=== PATIENT | male | born 1960 | race Caucasian/White ===

== ENCOUNTER → 2016-05-23 | Outpatient (CLI) | payer OTHER, MEDICARE | END | disposition home or self-care (01) | LOC: LABPAT 12:06 | PROVIDERS: ATTEND Orthopaedic Surgery Orthopaedic Surgery of the Spine | DX: Z01.812 Encounter for preprocedural laboratory examination (principal) | CPT/HCPCS: 87070 ==

== ENCOUNTER → 2016-06-01 | Day surgery (SDC) | payer OTHER, MEDICARE ==
[2016-05-23 14:18] VITALS: BMI 42.2
[~2016-06-01] MED LIST: BACITRACIN 50,000 UNIT, POLYMYXIN B 500,000 UNIT in SODIUM CHLORIDE 0.9% IRRIGATIO 1,00... IRRIGATION ONE; DEXAMETHASONE SOD PHOSPHATE 10 MG/ML 1 ML VIAL IV ONE; LACTATED RINGERS 1,000 ML IV SCH; LIDOCAINE 1% 20 ML VIAL (10MG/ML) FOR IV START INTRADERMA PRN; LIDOCAINE 1% INJ 10MG/ML (20 ML MDV) ONE; MIDAZOLAM 2 MG/2 ML VIAL IV PRN; MIDAZOLAM 2 MG/2 ML VIAL ONE; ONDANSETRON 4 MG/2 ML VIAL IVP ONE; PROPOFOL 10 MG/ML 20 ML VIAL IV ONE; SCOPOLAMINE 1.5MG/72HR PATCH TRANSDERM ONE; SUCCINYLCHOLINE CHLORIDE VIAL 200 MG/10 ML VIAL IV ONE; ceFAZolin 3 GM in SODIUM CHLORIDE 0.9% 100 ML IVPB ONE; fentaNYL (PF) 50 MCG/ML 2 ML AMP ONE
[2016-06-01 06:51] LABS: Glucose,Whole Blood 134 mg/dL (75-99)
--- NOTE | 2016-06-01 08:16 | P.PN ---
Progress Note - Text The patient presented today for his surgery for his lumbar spine. We were planning a decompression and fusion surgery for his degenerative scoliosis and stenosis at his lumbar spine at L2-3 L3 4 L4 5 and L5-S1. He has been evaluated preoperatively with our service as with with medicine. He is a chronic smoker and has not been able stop smoking, despite numerous attempts. We attempted to medically optimize him prior to surgery. He was prepared for his surgery this morning with anesthesia service. He was having some wheezing. He was brought to the operating room and was sedated and intubated by the anesthesia service with Dr. Paul. The ropes that his wheezing would resolve. However he continued have significant wheezing and higher pressures for his respirations. He is obese and we are planning a extended case assisting over 4 hours with him in a prone position which would put increased strain on his lungs and cardiopulmonary status. He was being treated for his wheezing with anesthesia service but this was not resolving well. With his persistent wheezing and his high pulmonary pressure status anesthesia felt that it would not be safe or at the least be at significantly increased risk from a pulmonary standpoint for him to proceed with this major surgery today. They felt that they would be best to postpone his surgery and abandon the surgery planned for today until the patient can be more medically optimized from a pulmonary standpoint and then rescheduled. The patient has been woken up and brought to recovery room. Once he is stabilized and will be okay for him to be discharged home today for continued outpatient workup and management with further optimization of his pulmonary standpoint and status. The lumbar decompression and fusion surgery plan for today is canceled. We will contact the patient from our office to further coordinate continued care.
[2016-06-01 08:24] VITALS: RESP 16; TEMP 97.9
[2016-06-01] MEDS: HYDROmorphone 1 MG/ML 1 ML SYRINGE IVP PRN ×2 (08:36→08:48)
[2016-06-01 09:17] VITALS: PULSE 71
[2016-06-01 09:40] VITALS: BP 138/70
== END ==
LOC: OR 05:59 → UNDOADMIN 05:59 → 2ORMAIN 05:59 → EDSTATUS 07:30 → UNDODISIN 10:02
PROVIDERS: ATTEND Orthopaedic Surgery Orthopaedic Surgery of the Spine
DX: M48.06 Spinal stenosis, lumbar region (principal); M41.86 Other forms of scoliosis, lumbar region; E66.9 Obesity, unspecified; Z68.41 Body mass index [BMI] 40.0-44.9, adult; F17.200 Nicotine dependence, unspecified, uncomplicated; Z53.09 Procedure and treatment not carried out because of other contraindication; R06.2 Wheezing; I10 Essential (primary) hypertension; M10.9 Gout, unspecified; E11.9 Type 2 diabetes mellitus without complications; Z79.84 Long term (current) use of oral hypoglycemic drugs; Z79.891 Long term (current) use of opiate analgesic; Z79.899 Other long term (current) drug therapy
CPT/HCPCS: 63005; 86900; 86901; 86850; J2250; J0330; J2405; J2001; J3010; J1170; J2704

== ENCOUNTER → 2016-06-06 | Outpatient (CLI) | payer OTHER, MEDICARE ==
[2016-06-06 13:30] LABS: Blood Urea Nitrogen 27 mg/dL (9-20); Non-African American GFR(MDRD) >60 (>60 ml/min/1.73 sqM)
--- NOTE | 2016-06-06 15:14 | CT ---
EXAMINATION TYPE: CT chest w con DATE OF EXAM: 06/06/2016 2:03 PM COMPARISON: NONE HISTORY: Shortness of breath, Respiratory Distress, wheezing on surgical table CT DLP: 1231.7 mGycm, Automated exposure control for dose reduction was used. CONTRAST: Performed injected with 100 mL of Omnipaque 300. TECHNIQUE: Axial images were obtained at 5 mm thick sections. Reconstructed images are reviewed on [employer] computer in the coronal plane. FINDINGS: Portion of the thyroid visualized is normal. The tracheobronchial tree appears normal. No suspicious lung nodules or focal infiltrates are present. No enlarged mediastinal or hilar adenopathy is evident. The ascending aorta diameter at the level o f the main pulmonary artery is 3.5 cm. The main pulmonary artery diameter at the bifurcation is 3.0 cm. Some coronary artery calcification is present. Limited CT sections are obtained through the upper abdomen. Abdomen is essentially unremarkable. IMPRESSIONS: 1. No acute pulmonary process.
== END ==
LOC: RADCTMAIN 12:42
PROVIDERS: ATTEND Family Medicine
DX: R06.02 Shortness of breath (principal); R06.00 Dyspnea, unspecified
CPT/HCPCS: 82565; 84520; 71260; 36415; Q9967

== ENCOUNTER → 2016-06-28 | Outpatient (CLI) | payer OTHER, MEDICARE ==
[2016-06-28 11:21] LABS: Basophils # (A) 0.1 k/uL (0-0.2); Basophils % (A) 1 %; CH 31.3; CHCM 33.6; Eosinophils # (A) 0.3 k/uL (0-0.7); Eosinophils % (A) 3 %; HCT 43.1 % (39.0-53.0); HDW 2.27; HGB 14.2 gm/dL (13.0-17.5); Luc # (Auto) 0.29; Luc % (Auto) 4; Lymphocytes # (A) 1.1 k/uL (1.0-4.8); Lymphocytes % (A) 13 %; MCH 30.7 pg (25.0-35.0); MCHC 32.8 g/dL (31.0-37.0); MCV 93.7 fL (80.0-100.0); Mean Platelet Volume 7.1; Monocytes # (A) 0.6 k/uL (0-1.0); Monocytes % (A) 7 %; Neutrophils # (A) 5.9 k/uL (1.3-7.7); Neutrophils % (A) 73 %; RBC 4.61 m/uL (4.30-5.90); RDW 13.5 % (11.5-15.5); WBC 8.1 k/uL (3.8-10.6); WBC (Perox) 7.99
[2016-06-28 11:36] LABS: Anion Gap 9 mmol/L; Blood Urea Nitrogen 23 mg/dL (9-20); Carbon Dioxide 30 mmol/L (22-30); Chloride 101 mmol/L (98-107); Glucose 120 mg/dL (74-99); Non-African American GFR(MDRD) >60 (>60 ml/min/1.73 sqM); Potassium 4.8 mmol/L (3.5-5.1); Sodium 140 mmol/L (137-145)
[2016-06-28 11:41] LABS: Prothrombin Time 9.9 sec (9.0-12.0)
[2016-06-28 11:42] LABS: Appearance,Urine Clear (Clear); Bilirubin,Urine Negative (Negative); Glucose,Urine (UA) Negative (Negative); Ketones,Urine Negative (Negative); Leukocyte Esterase,Urine Negative (Negative); Nitrite,Urine Negative (Negative); PH, Urine 6.5 (5.0-8.0); Protein,Urine Negative (Negative); Specific Gravity,Urine 1.021 (1.001-1.035); UA Billing (MACRO vs. MICRO) CHEM; Urobilinogen,Urine <2.0 mg/dL (<2.0)
[2016-06-28 11:56] LABS: Calcium 9.8 mg/dL (8.4-10.2)
== END | disposition home or self-care (01) ==
LOC: LABWHC1 10:53
PROVIDERS: ATTEND Orthopaedic Surgery Orthopaedic Surgery of the Spine
DX: Z01.812 Encounter for preprocedural laboratory examination (principal)
CPT/HCPCS: 36415; 80048; 81003; 85025; 85610; 85730; 87070

== ENCOUNTER 2016-07-06 07:16 | Inpatient (IN) | payer OTHER, MEDICARE ==
[2016-07-04 10:09] VITALS: BMI 43.5
[~2016-07-06 07:16] MED LIST changes: +FAMOTIDINE 20 MG/2 ML VIAL IV PRN; -LACTATED RINGERS 1,000 ML IV SCH; -LIDOCAINE 1% INJ 10MG/ML (20 ML MDV) ONE; -MIDAZOLAM 2 MG/2 ML VIAL ONE; -PROPOFOL 10 MG/ML 20 ML VIAL IV ONE; -SUCCINYLCHOLINE CHLORIDE VIAL 200 MG/10 ML VIAL IV ONE; -fentaNYL (PF) 50 MCG/ML 2 ML AMP ONE
[2016-07-06] MEDS: LACTATED RINGERS 1,000 ML IV SCH (07:37)
[2016-07-06 07:38] LABS: Glucose,Whole Blood 127 mg/dL (75-99)
[2016-07-06] MEDS ORDERED: PROPOFOL 10 MG/ML 20 ML VIAL IV ONE (08:30)
[2016-07-06] MEDS ORDERED: SODIUM CHLORIDE 0.9% IRRIG 1,000 ML BTL IRRIGATION ONE (08:30)
[2016-07-06] MEDS ORDERED: SUCCINYLCHOLINE CHLORIDE VIAL 200 MG/10 ML VIAL IV ONE (08:30)
[2016-07-06] MEDS ORDERED: FUROSEMIDE 10 MG/ML 2 ML VIAL ONE (08:30)
[2016-07-06] MEDS ORDERED: HEPARIN SODIUM,PORCINE 10,000 UNIT/ML 1 ML VIAL ONE (08:30)
[2016-07-06] MEDS ORDERED: ALBUMIN HUMAN 5% 250 ML BOTTLE IVPB ONE (08:30)
[2016-07-06] MEDS ORDERED: HYDROmorphone (PF) 1 MG/ML ONE (08:30)
[2016-07-06] MEDS ORDERED: PHENYLEPHRINE-0.9% NACL SYG 1 MG/10 ML SYRINGE ONE (08:30)
[2016-07-06] MEDS ORDERED: ROCURONIUM BROMIDE 10 MG/ML 10 ML VIAL IV ONE (08:30)
[2016-07-06] MEDS ORDERED: ePHEDrine 50 MG/ML 1 ML AMP ONE (08:30)
[2016-07-06] MEDS ORDERED: LIDOCAINE 1% INJ 10MG/ML (20 ML MDV) ONE (08:30)
[2016-07-06] MEDS ORDERED: fentaNYL (PF) 50 MCG/ML 2 ML AMP ONE (08:30)
[2016-07-06] MEDS ORDERED: ONDANSETRON 4 MG/2 ML VIAL ONE (08:30)
[2016-07-06] MEDS ORDERED: ALBUTEROL INHALER 60 PUFF/8 GM INHALER INHALATION ONE (08:30)
[2016-07-06] MEDS ORDERED: MIDAZOLAM 2 MG/2 ML VIAL ONE (08:30)
[2016-07-06] MEDS ORDERED: LACTATED RINGERS 1,000 ML IV ONE ×8 (08:45→16:30)
[2016-07-06] MEDS ORDERED: LIDOCAINE 0.5%-EPI 1:200,000 50 ML VIAL SQ ONE (09:17)
[2016-07-06] MEDS ORDERED: BUPIVACAINE (PF) 0.25% 30 ML VIAL SQ ONE (10:00)
[2016-07-06] MEDS ORDERED: THROMBIN (BOVINE) 5,000 UNIT VIAL TOPICAL ONE (10:00)
[2016-07-06] MEDS ORDERED: GELATIN SPONGE,ABSORB (LARGE) 1 EACH SPONGE TOPICAL ONE (10:01)
--- NOTE | 2016-07-06 10:33 | XR ---
EXAMINATION TYPE: XR lumbar spine 1V DATE OF EXAM: 07/06/2016 10:02 AM COMPARISON: NONE HISTORY: Spinal stenosis and pain. TECHNIQUE: Portable intraoperative lateral view of lumbar spine is performed. FINDINGS: Exam is for surgical planning and not for diagnostic purposes. Metallic pointer is noted at posterior L4 vertebral body level. IMPRESSION: As above
[2016-07-06 10:57] LABS: Glucose,Whole Blood 131 mg/dL (75-99)
[2016-07-06 13:02] LABS: Glucose,Whole Blood 137 mg/dL (75-99)
--- NOTE | 2016-07-06 14:15 | XR ---
EXAMINATION TYPE: XR lumbar spine 2 or 3V DATE OF EXAM: 07/06/2016 2:02 PM CLINICAL HISTORY: Low back surgery TECHNIQUE: Frontal and lateral images of the lumbar spine are obtained intraoperatively. COMPARISON: Lumbar spine x-ray earlier today FINDINGS: Exam is suboptimal due to portable technique and patient's large body habitus. Bilateral in trapedicular screws are placed at L2-S1 levels. There is left-sided sharad noted. Metallic disc material L4-L5 level is seen. Alignment is felt stable. IMPRESSION: As above.
[2016-07-06] MEDS ORDERED: DIAZEPAM 5 MG TAB PO PRN (14:56)
[2016-07-06] MEDS ORDERED: BENZOCAINE/MENTHOL LOZENG 1 EACH LOZENGE MUCOUS MEM PRN (14:56)
[2016-07-06] MEDS ORDERED: ONDANSETRON 4 MG/2 ML VIAL IVP PRN (14:56)
--- NOTE | 2016-07-06 15:15 | P.OP ---
Date of Procedure: 07/06/16 Preoperative Diagnosis: Scoliosis, degenerative scoliosis, asymmetric degenerative disc disease, severe spinal stenosis L2-3 L3 4 L4 5 L5-S1, facet arthrosis L2 to S1, low back pain with lower extremity radiculopathy Postoperative Diagnosis: Same Procedure(s) Performed: Implants: Anesthesia: GETA Pathology: none sent Condition: stable Disposition: PACU Indications for Procedure: Operative Findings: Description of Procedure: BRIEF OPERATIVE NOTE Preoperative Diagnosis: Degenerative scoliosis, degenerative disc degeneration, severe spinal stenosis L2 to S1, facet arthrosis L2 to S1, low back pain with lower extremity radiculopathy, spondylolisthesis L4 5 and lateral listhesis L3 4 Postoperative Diagnosis: Same, plus increased level of difficulty due to patient 's body habitus of obesity Procedure: Laminectomy and decompression with wide bilateral foraminotomies and partial facetectomy L2-3 L3 4 L4 5 and L5-S1 Posterior lateral decompression and fusion L2-3 L3 4 L4 5 and L5-S1 Local autogenous bone grafting Use of Cell Saver Use of bone graft extenders Use of neuro monitoring Repair of incidental 1 mm durotomy Bone marrow aspiration through the pedicle with a bone marrow aspiration device Surgeon: Dr. Gonzales Sample Sawyer: Piyush Berkowitz is present throughout the entire the case persistence during positioning, dissection, exposure, visualization, and all crucial elements of the case as well as closure. Anesthesia: General anesthesia Estimated blood loss: Approximately 1300 mL with 600 given back through Cell Saver Complications: None apparent, incidental 1 mm durotomy which was repaired primarily Components implanted: K[employer] [place] pedicle screw system with use of 10 screws measuring 6.5 mm in diameter to rods one cross-link one large osteal and cancellus sponge and 20 mL of osteal amp cancellus chips to supplemental local autogenous bone graft and the bone marrow aspirate, also Tisseel was used over the durotomy repair Disposition: To recovery room in good stable condition, flat in bed. OPERATIVE INDICATIONS The patient has had long-standing issues in their lower back and lower extremities. He is found have severe changes lumbar spine with degenerative scoliosis which was dynamic with spondylolisthesis and severe stenosis. The patient has been through conservative treatment. He went through extensive conservative treatment with physical therapy medical management interventional pain management and multiple lifestyle changes including stopping smoking. The patient did not have any relief of his back pain and was having worsening of his symptoms and worsening debility despite all of his conservative care. We discussed various treatment options including surgery, and the patient wishes to proceed with surgery We discussed the risk, patient's alternatives and benefits of surgery including but not limited to, risk of bleeding risk of infection, risk of need for further surgery, risk of decreased, loss of motion, muscle function, malunion nonunion, hardware failure, nerve damage, paralysis, heart attack, blindness and . The patient has history of obesity and a number of lung issues and had initially been scheduled in the past but had to be canceled for surgery for further medical optimization which had been achieved at this point. This was discussed with his primary care physician as well as with the patient and he was felt to be stable for the surgical procedure. OPERATIVE SUMMARY After discussing all the risks, patient alternatives and benefits at length, the patient elected to proceed with surgical intervention, signed informed consent, and presented for their procedure. The patient was seen and examined in the preoperative holding area and the surgical site was marked. The patient was given antibiotics and brought to the operating room. The patient was sedated and intubated by anesthesia in standard fashion. The patient was positioned on to the operating room table in a prone position on the appropriate frame which was well-padded and well molded. We were careful to pad any bony prominences and pressure points. We were careful to maintain the patient's cervical spine and good neutral alignment and position throughout. The patient was prepped and draped in a normal standard fashion. An appropriate timeout and keystone protocol performed. We were able to proceed with the surgery. The local wound area was infiltrated with local anesthetic. An incision was made at the midline longitudinally over the appropriate levels from L2 to S1. Dissection was taken down subcutaneously to the level of the fascia which was split midline. Dissection was taken over the lamina bilaterally over the facet joints and to the transverse processes. Intraoperative x-ray was taken which showed a marker at the appropriate level at L3 4. With the appropriate level positively confirmed, we were able to proceed with placement of the pedicle holes and screws. The patient had all their twitches back. The wound was copiously irrigated and suctioned dry as had been done periodically throughout the case. Screw holes were established similarly at each level. A sharp awl was used to establish the starting hole. It was palpated and found to have good for johnson and good base. A monitored Steffee probe was used to establish the pedicle hole. It was positioned so there was no stimulation at 12 mA. The hole was palpated and found to have good for johnson and a good base. The hole was tapped with the appropriate sized tap. The transverse process or sacral ala was decorticated with a high-speed bur. I was able to use these holes to place the appropriate size screw. The screws had good alignment and position from L4 to S1 bilaterally and at L2-3 on the left. Later in the case on further review I was able to change the screws at L2 and 3 on the right to get good alignment and position with excellent bony purchase. At L4 on the right, I used the pedicle holes to get bone marrow aspirate which was used [address] over the osteal amp cancellus sponge and bone chips for use later in the case. This was confirmed with imaging. When the screws were inserted there were stimulated, and found to have no stimulation at 20 mA. I was able to turn my attention to the decompression. The patient was found to have severe stenosis and severe facet arthrosis particularly at L4 5 and L3 4. There is also ossification of the ligament and flavum at L3 4 on the right causing severe impingement at the nerve root and some adherence over the nerve root as well. decompression was performed with a combination of rongeurs, curettes, Kerrison rongeurs and a ball-tip feeler. All of the bone that was removed was stripped and morcellized for use as autogenous bone graft later in the case. I was able to obtain good central decompression as well as wide bilateral foraminal decompression. At L3 4 on the right there was a small 1 mm incidental durotomy. I was able to identify it open at the space around it and do primary closure with 6-0 Prolene and a fatty graft over the top. It had good closure and no further leakage of cervical spinal fluid. Later in the case I placed Tisseel over the repair and it had good coverage without evidence of further leak. Good hemostasis was maintained. The wound was irrigated and suctioned dry. With the hardware intact, intraoperative x-ray was again taken which showed good alignment and position of the hardware at the appropriate levels. At L2 3 4 5 and S1 I was able to get good alignment and good position with all 10 screws. We were then able to measure, contour and place the rods and appropriate hardware bilaterally. I was able to some distraction over the concavity to get good alignment of the scoliosis and good reduction of the scoliosis as well. I was able to place capcrews, tighten them down, and torque them off appropriately. With this intact I was able to place the local autogenous bone graft with additional bone graft enhancer as necessary into the posterior lateral gutters bilaterally. With the bone graft intact, a stable construct, and good decompression at the appropriate levels, we were able to proceed with closure. Good hemostasis was maintained. There is no evidence of dural tear or leak. The fascia was closed for a watertight closure. The subcutaneous tissue was closed over a superficial drain. The subcuticular tissue was closed with absorbable suture. The wound was cleaned and dried and dressed with the appropriate dressing. The drapes were broken down. The patient was gently rolled back onto their hospital bed being careful to maintain their cervical spine and good neutral alignment and position. They were woken up by anesthesia , extubated, and brought to the recovery room in good stable condition. The patient will be admitted to the hospital for appropriate postoperative care , medical management and monitoring. We will continue to follow them closely about the postoperative course.
[2016-07-06] MEDS: HYDROmorphone 1 MG/ML 1 ML SYRINGE IVP PRN ×6 (16:00→21:45)
[2016-07-06 16:47] LABS: Glucose,Whole Blood 167 mg/dL (75-99)
[2016-07-06] MEDS: SODIUM CHLORIDE 0.9% 1,000 ML IV SCH ×2 (18:11)
[2016-07-06] MEDS: HYDROmorphone PCA 5 MG/25 ML SYRINGE IV PRN (18:11)
[2016-07-06] MEDS: ceFAZolin 3 GM in SODIUM CHLORIDE 0.9% 100 ML IVPB SCH (19:32)
[2016-07-06 20:23] LABS: Glucose,Whole Blood 160 mg/dL (75-99)
[2016-07-06] MEDS: HYDROCHLOROTHIAZIDE 25 MG TAB PO SCH (21:49)
[2016-07-06] MEDS: metFORMIN 500 MG TAB PO SCH (21:49)
[2016-07-06] MEDS: amLODIPine 10 MG TAB PO SCH (21:49)
[2016-07-06] MEDS: ATORVASTATIN 40 MG TAB PO SCH (21:49)
[2016-07-07] MEDS: HYDROmorphone PCA 5 MG/25 ML SYRINGE IV PRN ×4 (01:25→22:53)
[2016-07-07] MEDS: HYDROmorphone 1 MG/ML 1 ML SYRINGE IVP PRN ×4 (01:57→20:44)
[2016-07-07] MEDS: ceFAZolin 3 GM in SODIUM CHLORIDE 0.9% 100 ML IVPB SCH ×3 (02:11→17:14)
[2016-07-07] MEDS: HYDROcodone/APAP 10-325MG 1 EACH TAB PO PRN ×2 (04:54→20:45)
[2016-07-07] MEDS: SODIUM CHLORIDE 0.9% 1,000 ML IV SCH (05:39)
[2016-07-07 07:19] LABS: Glucose,Whole Blood 166 mg/dL (75-99)
--- NOTE | 2016-07-07 07:54 | CONS ---
DATE OF CONSULTATION: This is a 55-year-old white man with chronic back pain for a long period of time. It finally came to the point that he had severe stenosis with spinal stenosis with radicular pain and weakness down both legs becoming intolerable on any type of medication of which he was then evaluated with Dr. Gonzales and I am seeing him postop for laminectomy and decompression with wide bilateral foraminotomy and foramen ( ) L2-3, L3-4, L4-5 and L5-S1. He also had posterior lateral decompression of L2-L3 L3-L4, L4-L5 and L5-S1. I am following with him today postoperatively and he had tremendous amount of pain last p.m. The patient has a long-standing history of severe chronic lumbar stenosis and back pain, which has actually made him disabled. He worked in construction for many years. He has also had gout, hypertension, which is well controlled, diabetes type 2. Blood sugars were watched all night and they were good, went from 129 to 160 and he is on coverage. He has had a history of some mild COPD. ( ) HISTORY: Type 2 diabetes, which has been well controlled, obesity and severe hearing loss. SOCIAL HISTORY: He just recently stopped smoking. He is a nondrinker. Does live with his and he is disabled because of his chronic back problems. From a surgical standpoint, he did have a problem with a shoulder dislocation that was taken care of previously and previous brachial plexus injury. REVIEW OF SYSTEMS: CARDIOPULMONARY: No shortness of breath or chest pain, no orthopnea, no paroxysmal nocturnal dyspnea. GI: No hematemesis, melena, hematochezia. He has not had any flatus postop. URINARY: He has had no problem with urination in the past. NEUROMUSCULAR: Just the weakness in his legs and his lower extremities including feet and severe back pain. SKIN: No problems with skin. PSYCHIATRIC: He has never had depression. He has been very anxious about the surgery. Physical examination at this time shows a blood pressure of 143/64, heart rate is in the 80s, temperature 98.6, respiratory rate is 20. EYES: Pupils are equal, round, reactive to light and accommodation. ENT showed tympanic membranes to be negative. Neck is supple with midline trachea. CHEST: Essentially clear to auscultation. HEART: Sinus rhythm. ABDOMEN: Soft, nontender, with no organomegaly. There are no bowel sounds. Lower extremities are within normal limits. Good palpable pulses. Again no range of motion was done just because of recent back surgery. Unable to inspect the incision at this time, I will leave that for Orthopedic Surgery. ASSESSMENT: 1. Severe chronic lumbar stenosis with intractable pain and loss of radicular strength. 2. History of some chronic obstructive pulmonary disease, recently had a pulmonology evaluation before surgery and he is stable. 3. Negative cardiac history of severity. 4. Type 2 diabetes, which has been well under control. 5. Morbid obesity with hypertension. PLAN: At this period of time most important thing is for control of pain between Dr. Gonzales and myself we have made multiple arrangements. Dr. Barber pulmonology doctor and Minoo Pantoja nurse practitioner will be covering this Monday, and and I will return on , but I will be available by phone. My cell number was given to everybody.
[2016-07-07] MEDS: LACTATED RINGERS 1,000 ML IV SCH ×3 (07:58→20:47)
[2016-07-07] MEDS: metFORMIN 500 MG TAB PO SCH ×2 (08:23→20:46)
[2016-07-07] MEDS: HYDROCHLOROTHIAZIDE 25 MG TAB PO SCH ×2 (08:24→20:46)
[2016-07-07] MEDS: LISINOPRIL 20 MG TAB PO SCH (08:24)
[2016-07-07] MEDS: ALLOPURINOL 300 MG TAB PO SCH (08:24)
[2016-07-07 08:33] LABS: Basophils % (A) 0 %; CH 31.2; CHCM 33.8; Eosinophils % (A) 0 %; HCT 31.6 % (39.0-53.0); HDW 2.49; HGB 11.1 gm/dL (13.0-17.5); Luc # (Auto) 0.18; Luc % (Auto) 2; Lymphocytes # (A) 0.7 k/uL (1.0-4.8); Lymphocytes % (A) 6 %; MCH 32.6 pg (25.0-35.0); MCHC 35.2 g/dL (31.0-37.0); MCV 92.6 fL (80.0-100.0); Mean Platelet Volume 7.5; Monocytes # (A) 1.2 k/uL (0-1.0); Monocytes % (A) 10 %; Neutrophils # (A) 9.8 k/uL (1.3-7.7); Neutrophils % (A) 82 %; RBC 3.42 m/uL (4.30-5.90); RDW 13.3 % (11.5-15.5); WBC 11.9 k/uL (3.8-10.6); WBC (Perox) 11.11
--- NOTE | 2016-07-07 08:34 | P.PN ---
Progress Note - Text Postoperative day #1 Patient is seen and examined today at bedside. The patient has some significant pain around the surgical site as expected. It was difficult to control his pain overnight but we have increased some of the IV medications and is seems to be working adequately this morning. He is not any of any spinal headaches. He is not quite of new pain in his legs. The pain is primarily at his back and feels as though its spasm. He is not having nausea or vomiting. Physical Exam Afebrile with stable vital signs Abdomen is soft nontender. He is obese. Chest has good excursion deep and space expiration The incision site is clean dry and intact. No erythema there is no purulence. The dressing and the drain are intact. There is over 300 bloody drainage in the drain overnight but this seems to be stabilizing. Extremities have not had neurologic change from prior to surgery. He has sustained dorsal flexion plantar flexion and EHL. Calves and thighs were soft nontender without evidence of DVT. Assessment/Plan Postoperative day #1 status post lumbar decompression and fusion L2-3 L3 4 L4 5 and L5-S1 for his degenerative scoliosis and severe stenosis Patient is having trouble postoperatively with his pain control overnight the first night but this seems to be more controlled this morning. Hopefully his spasms we will continue to decrease and his pain will be controlled. We need to keep him flat in bed overnight again tonight and then we can start to sit him up tomorrow at lunchtime to continue to allow the incidental durotomy to heal. If he is having headaches and we'll have him lay flat again when he tries to get up. We will continue to have him on bedrest today and hopefully tomorrow if he is not having spinal headaches we can increase the patient's mobilization with therapy. We will continue pain control with oral or IV medications. We'll continue to follow patient closely.
[2016-07-07] MEDS: CYCLOBENZAPRINE 10 MG TAB PO PRN ×2 (11:06→20:44)
[2016-07-07 11:48] LABS: Glucose,Whole Blood 159 mg/dL (75-99)
[2016-07-07 17:24] LABS: Glucose,Whole Blood 153 mg/dL (75-99)
[2016-07-07 19:11] LABS: Calcium 7.8 mg/dL (8.4-10.2); Potassium 4.4 mmol/L (3.5-5.1)
[2016-07-07 19:57] LABS: Glucose,Whole Blood 163 mg/dL (75-99)
[2016-07-07] MEDS: amLODIPine 10 MG TAB PO SCH (20:45)
[2016-07-07] MEDS: ATORVASTATIN 40 MG TAB PO SCH (20:45)
--- NOTE | 2016-07-07 20:58 | CT ---
EXAMINATION TYPE: CT abdomen pelvis wo con DATE OF EXAM: 07/07/2016 8:23 PM COMPARISON: NONE HISTORY: Prior Abd on PACS. Severe Abdominal pain and distension post OP low back surgery. DLP: CT DLP: 2126 mGycm Automated exposure control for dose reduction was used. TECHNIQUE: Helical acquisition of images was performed from the lung bases through the pelvis. FINDINGS: LUNG BASES: No significant abnormality is appreciated. LIVER/GB: No significant abnormality is appreciated. PANCREAS: No significant abnormality is seen. SPLEEN: No significant abnormality is seen. ADRENALS: No significant abnormality is seen. KIDNEYS: No significant abnormality is seen. FREE AIR: No free air is visualized RETROPERITONEAL ADENOPATHY: None visualized REPRODUCTIVE ORGANS: No significant abnormality is seen URINARY BLADDER: No significant abnormality is seen. PELVIC ADENOPATHY: None visualized. OSSEOUS STRUCTURES: The hollow viscera of the abdomen and pelvis is unremarkable. There is no pneuma tosis. No pneumoperitoneum. No bowel dilation. The mesentery and mesocolon are unremarkable. BOWEL: No significant abnormality is seen. OTHER: Postprocedural lumbar spine changes are appreciated. IMPRESSION: NO ACUTE ABDOMINOPELVIC PROCESS.
[2016-07-07] MEDS ORDERED: IPRATROPIUM-ALBUTEROL 3 ML NEB INHALATION STA (21:59)
[2016-07-08] MEDS: ceFAZolin 3 GM in SODIUM CHLORIDE 0.9% 100 ML IVPB SCH ×2 (00:13→08:01)
[2016-07-08] MEDS: LACTATED RINGERS 1,000 ML IV SCH ×3 (00:14→20:28)
[2016-07-08] MEDS: HYDROcodone/APAP 10-325MG 1 EACH TAB PO PRN ×5 (02:17→20:40)
[2016-07-08] MEDS: IPRATROPIUM-ALBUTEROL 3 ML NEB INHALATION PRN (02:40)
[2016-07-08] MEDS: HYDROmorphone PCA 5 MG/25 ML SYRINGE IV PRN ×4 (03:27→20:39)
[2016-07-08] MEDS: IPRATROPIUM-ALBUTEROL 3 ML NEB INHALATION SCH ×4 (07:34→19:56)
[2016-07-08 07:37] LABS: Glucose,Whole Blood 164 mg/dL (75-99)
[2016-07-08 08:52] LABS: Basophils % (A) 0 %; CH 31.1; CHCM 33.1; Eosinophils % (A) 0 %; HCT 31.7 % (39.0-53.0); HDW 2.33; HGB 10.4 gm/dL (13.0-17.5); Luc % (Auto) 2; Lymphocytes # (A) 0.7 k/uL (1.0-4.8); Lymphocytes % (A) 5 %; MCH 30.9 pg (25.0-35.0); MCHC 32.8 g/dL (31.0-37.0); MCV 94.2 fL (80.0-100.0); Mean Platelet Volume 6.9; Monocytes # (A) 1.3 k/uL (0-1.0); Monocytes % (A) 9 %; Neutrophils # (A) 12.2 k/uL (1.3-7.7); Neutrophils % (A) 84 %; RBC 3.37 m/uL (4.30-5.90); RDW 13.3 % (11.5-15.5); WBC 14.6 k/uL (3.8-10.6)
--- NOTE | 2016-07-08 09:04 | P.PN ---
<Piyush Plasencia - Last Filed: 07/08/16 08:57> Progress Note - Text Orthopedic Spine Patient is a pleasant 55-year-old male who is seen and examined at the bedside following posterior lateral decompression and fusion performed Monday. Following surgical intervention, patient has remained lying flat in bed folllowing a small 1mm dural tear. He has been nothing by mouth since that time. We are currently planning for him to sit up today with the assistance of physical therapy to see if he has any evidence of spinal headaches. He is not currently complaining of any headaches. We'll plan to increase his diet as tolerated. Postsurgically, he continues to have significant pain at the incision site. His pain is being controlled with Dilaudid IV, Dilaudid [employer], and [place] 10 mg/325 mg. He is also taking Flexeril 10 mg for muscle spasms. Last night he was experiencing some abdominal pain with some distention. CT of the abdomen and pelvis was performed which showed no evidence of acute abdominal pelvic process. At approximately 3:00 AM nursing stated the patient had absent bowel sounds. Nursing states this morning the patient was discussed in detail with Dr. Pavan Gonzales and a decision was made at that time for the patient to transfer to selective care. Upon seeing the patient at the bedside this morning, patient is experiencing less abdominal distention. Multiple nurses heard the presence of bowel sounds. Patient does not appear to be in acute distress. He is able to communicate without significant difficulty. He is not experiencing significant pain with palpation of the abdomen. He does have some pain with palpation over the lower ribs bilaterally, which is most likely due from positioning during surgical intervention. At this time, we will plan to hold transfer to selective care. It is been discussed with nursing if he begins to have more abdominal issues or absent bowel sounds he will be transferred to selective care. Patient also continues to have some difficulty with some labored breathing postsurgically. He is known have some difficulty with breathing prior to surgical intervention. Chest x-ray was ordered but was unable to be obtained this morning is the patient has difficulty sitting up at anything greater than lying flat. I discussed with nursing we will plan to consult with pulmonology for further evaluation and care. Patient states he is not currently experiencing any significant pain in bilateral lower extremities. He states he does have difficulty with trying to perform any movement of the lumbar spine. We discussed that we'll be important for him to try to start increasing his mobility and ambulation. We'll plan to do that after sitting him up at lunchtime after assessing possibility of spinal headaches. Physical Exam Lumbar Fusion: Status post surgical day number 2 Patient is awake, alert, and oriented 3 Vital signs stable Breathing does not appear to be significantly labored but also does not appear to be performing deep inspiration and expiration; on O2 nasal cannula; currently receiving a breathing treatment Abdomen soft but distended; no significant pain with palpation of the abdomen; some pain with palpation of the inferior ribs bilaterally Dorsiflexion, plantarflexion, and extensor hallucis longus positive sustained bilaterally No signs or symptoms of DVT; no calf pain; pneumatic cuffs intact bilateral lower extremities Dressing is not addressed as patient continues to lie flat in bed and will continue to do so until lunchtime today Hemovac drain well secure Neurovascularly intact bilaterally lower extremities Higgins catheter intact Assessment: Posterior lateral decompression and fusion L2-5 Incidental 1 mm durotomy Low back pain Abdominal distention Some labored breathing postsurgically Bilateral lower rib pain Plan: 1. Patient will continue to lie flat in bed until lunchtime today. At that time, we'll plan to sit the patient upright at least 45 and further assess possibility of spinal headaches. If the patient is not experiencing any spinal headaches at that time, we'll plan to increase his mobility and ambulation with the assistance of physical therapy. 2. Continue pain control with IV and oral medications 3. Dressing to remain intact until patient is able to be mobilized; at that time Hemovac drain will be discontinued and dressing will be changed to changed to Telfa and Tegaderm 4. We will plan to advance diet as tolerated started his lunch today, 2016. 5. We will plan to discontinue his Higgins catheter once he's been able to increase mobility and ambulation. 6. We'll plan consultation with pulmonology to further address his pulmonary status and some difficulty with labored breathing; patient currently waiting for chest x-ray; patient should use icentive spirometer 7. Patient will currently continue to remain on the 5 [address]. floor. If the patient begins to experience significant changes in his overall status or vital signs or begins to have changes with his abdomen or begins to experience absent bowel sounds, we'll plan to have the patient transferred to selective care. 8. Medical management can continue to manage patient for patient's other medical issues 9. We will continue to follow the patient closely 10. Patient can follow-up with Piyush Plasencia PA-C or Dr. Pavan Gonzales at [facility] in 2-3 weeks following discharge <Vanessa Gonzales - Last Filed: 07/12/16 12:17> Progress Note - Text The patient is seen and examined today at bedside. There is still some active drainage at his surgical site which is serosanguineous. He has been third spacing and collecting fluid and I think this is can has pooled underneath his wound site and seems to be draining from it. I do not think that there is active bleeding necessarily. I do not think that he has a continued CSF leak has he is not having any complaints of spinal or positional headaches. He has a large blister which appears to have a clean base at his left gluteal superficial area with some other small blisters peering. The there is some palpable fluid collection underneath the scan and this seems to be the cause of his blistering. I would like to see the drainage decreased further before we discharge him to retirement. I think that with the continued drainage he would like leak necessary to take him and transferred back to the hospital and I think of the more prudent to keep him here for close observation and continued IV antibiotics as long as there is active drainage. I discussed this with him and his family as well as the nursing staff and they're agreeable. We will continue to follow them closely.
[2016-07-08 09:18] LABS: Potassium 4.1 mmol/L (3.5-5.1); Total Bilirubin 0.8 mg/dL (0.2-1.3); Total Protein 5.9 g/dL (6.3-8.2)
[2016-07-08] MEDS: LISINOPRIL 20 MG TAB PO SCH (09:39)
[2016-07-08] MEDS: HYDROCHLOROTHIAZIDE 25 MG TAB PO SCH ×2 (09:39→20:29)
[2016-07-08] MEDS: metFORMIN 500 MG TAB PO SCH ×2 (09:39→20:29)
[2016-07-08] MEDS: ALLOPURINOL 300 MG TAB PO SCH (09:40)
--- NOTE | 2016-07-08 11:49 | XR ---
EXAMINATION TYPE: XR chest 1V portable DATE OF EXAM: 07/08/2016 11:45 AM COMPARISON: 06/10/2016 INDICATION: Lung fluid TECHNIQUE: Single frontal view of the chest is obtained. FINDINGS: The heart size is normal. The pulmonary vasculature is normal. The lungs are clear. IMPRESSION: 1. No acute pulmonary process.
[2016-07-08 12:21] LABS: Glucose,Whole Blood 147 mg/dL (75-99)
--- NOTE | 2016-07-08 14:43 | P.PN ---
Subjective Principal diagnosis: Laminectomy Patient seen and examined covering for Dr. Dias. The patient did have an episode of shortness of breath overnight. The patient states at the time he was having significant back pain. He thinks his breathing difficulties was related to that. He states his breathing is good now. He does have a history of tobacco abuse and quit one month ago. He also has a history of diabetes. He states he has never been evaluated for obstructive sleep apnea. The patient does not wear oxygen at home. He states he was started on an inhaler several months ago but does not use it frequently. The patient's chest x-rays reviewed and shows no acute pulmonary process. Objective - Vital Signs Vital signs: Vital Signs Temp 98.6 F 07/08/16 07:00 Pulse 92 07/08/16 11:51 Resp 20 07/08/16 08:00 BP 131/61 07/08/16 07:00 Pulse Ox 94 L 07/08/16 07:35 Intake & Output 07/07/16 07/08/16 07/08/16 18:59 06:59 18:59 Intake Total 350 Output Total 1999 1899 1999 Balance -1999 Intake: IV 100 ceFAZolin 3 gm In Sodium 100 Chloride 0.9% 100 ml @ 100 mls/hr IVPB Q8HR [facility] Rx#:[id number] Oral 250 Output: Urine 1999 1899 1999 Uretheral (Higgins) 1899 Other: Voiding Method Indwelling Catheter Indwelling Catheter Indwelling Catheter - Exam Gen.: Patient is alert and oriented 3, no acute distress, morbidly obese Cardiovascular: Regular rate and rhythm, S1/S2 next Lungs: Diminished at the bases otherwise clear Abdomen: Soft nontender nondistended positive bowel sounds Extremities: 1+ pitting edema - Labs CBC & Chem 7: 07/08/16 08:12 07/08/16 08:12 Labs: Abnormal Lab Results - Last 24 Hours (Table) 07/07/16 07/07/16 07/07/16 Range/Units 07:31 17:17 19:55 WBC (3.8-10.6) k/uL RBC (4.30-5.90) m/uL Hgb (13.0-17.5) gm/dL Hct (39.0-53.0) % Neutrophils # (1.3-7.7) k/uL Lymphocytes # (1.0-4.8) k/uL Monocytes # (0-1.0) k/uL Sodium (137-145) mmol/L BUN 31 H (9-20) mg/dL Creatinine 1.90 H (0.66-1.25) mg/dL Glucose 155 H (74-99) mg/dL POC Glucose (mg/dL) 153 H 163 H (75-99) mg/dL Calcium 7.8 L (8.4-10.2) mg/dL AST (17-59) U/L Total Protein (6.3-8.2) g/dL Albumin (3.5-5.0) g/dL 07/08/16 07/08/16 07/08/16 Range/Units 07:17 08:12 08:12 WBC 14.6 H (3.8-10.6) k/uL RBC 3.37 L (4.30-5.90) m/uL Hgb 10.4 L (13.0-17.5) gm/dL Hct 31.7 L (39.0-53.0) % Neutrophils # 12.2 H (1.3-7.7) k/uL Lymphocytes # 0.7 L (1.0-4.8) k/uL Monocytes # 1.3 H (0-1.0) k/uL Sodium 136 L (137-145) mmol/L BUN 34 H (9-20) mg/dL Creatinine 1.51 H (0.66-1.25) mg/dL Glucose 151 H (74-99) mg/dL POC Glucose (mg/dL) 164 H (75-99) mg/dL Calcium 8.0 L (8.4-10.2) mg/dL AST 171 H (17-59) U/L Total Protein 5.9 L (6.3-8.2) g/dL Albumin 3.4 L (3.5-5.0) g/dL 07/08/16 Range/Units 12:12 WBC (3.8-10.6) k/uL RBC (4.30-5.90) m/uL Hgb (13.0-17.5) gm/dL Hct (39.0-53.0) % Neutrophils # (1.3-7.7) k/uL Lymphocytes # (1.0-4.8) k/uL Monocytes # (0-1.0) k/uL Sodium (137-145) mmol/L BUN (9-20) mg/dL Creatinine (0.66-1.25) mg/dL Glucose (74-99) mg/dL POC Glucose (mg/dL) 147 H (75-99) mg/dL Calcium (8.4-10.2) mg/dL AST (17-59) U/L Total Protein (6.3-8.2) g/dL Albumin (3.5-5.0) g/dL Assessment and Plan Plan: Severe chronic lumbar stenosis with intractable pain Underlying COPD Diabetes mellitus type 2 Constipation Morbid obesity Hypertension Question underlying obstructive sleep apnea Leukocytosis, likely reactive Anemia Acute kidney injury O2 to maintain saturation greater than equal to 88% Colace Decrease IV fluids to 75 mL an hour Bronchodilators Will add Pulmicort Pain control per surgery BP control - add insulin ssc Monitor blood sugar Monitor renal function Incentive spirometry and pulmonary hygiene Following for Dr. Dias over the weekend.
--- NOTE | 2016-07-08 16:05 | P.CNPUL ---
History of Present Illness Consult date: 07/08/16 Requesting physician: Vanessa Gonzales Reason for consult: hypoxemia Chief complaint: Back pain History of present illness: This is a very pleasant 55-year-old gentleman who follows with Dr. Dias as his primary care physician. He has a history of diabetes mellitus, morbid obesity, severe hearing loss and chronic back pain. He has been having progressive pain and weakness in the lower extremities. He also has a significant smoking history and was seen and evaluated by Dr. Mcmillan in our office prior to his surgery. He has a FEV1 value of 82% of predicted and was cleared for the back surgery. He presented here on 07/06/2016 to undergo a laminectomy which was performed by Dr. Gonzales. The patient tolerated the procedure well however had been having ongoing issues with intractable pain. His medications were adjusted accordingly. We are seeing the patient today in consultation for ongoing hypoxemia. He has been laying flat in bed since his surgery. He has some clinical features of obstructive sleep apnea. He feels his shortness of breath was related to the uncontrolled pain. Presently he is awake and alert in no acute distress. He continues to utilize 4 L/m per nasal cannula to maintain O2 saturations in the 90s. He's been afebrile. He is slightly bronchospastic and wheezy. He has significant production of sputum. He did quit smoking approximately one month ago. His chest x-ray revealed no evidence of acute pulmonary process. Review of Systems 14 point review of system was conducted. All negative other than as mentioned in HPI. Past Medical History Past Medical History: Diabetes Mellitus, Hyperlipidemia, Hypertension, Osteoarthritis (OA) Additional Past Medical History / Comment(s): neuropathy History of Any Multi-Drug Resistant Organisms: None Reported Past Surgical History: Joint Replacement, Orthopedic Surgery, Tonsillectomy Additional Past Surgical History / Comment(s): right hip replaced, left shoulder surg., right foot surg. Past Anesthesia/Blood Transfusion Reactions: No Reported Reaction Past Psychological History: No Psychological Hx Reported Smoking Status: Former smoker Past Alcohol Use History: None Reported Additional Past Alcohol Use History / Comment(s): QUIT SMOKING MAY 2016 Past Drug Use History: None Reported - Past Family History Mother Family Medical History: No Reported History Medications and Allergies Home Medications Medication Instructions Recorded Confirmed Type Enalapril/Hydrochlorothiazide 1 tab PO BID 11/11/13 07/06/16 History [Vaseretic 10-25 mg Tablet] metFORMIN HCL [Glucophage] 500 mg PO BID 11/11/13 07/06/16 History Allopurinol [Zyloprim] 300 mg PO DAILY 02/03/14 07/06/16 History HYDROcodone/APAP 10-325MG [[place] 1 tab PO Q6H PRN 02/03/14 07/06/16 History 10] Meloxicam [Mobic] 15 mg PO DAILY 02/03/14 07/06/16 History amLODIPine/ATORVASTATIN [[place] 10 1 tab PO HS 02/03/14 07/06/16 History mg-40 mg Tablet] Allergies Allergy/AdvReac Type Severity Reaction Status Date / Time No Known Allergies Allergy Verified 07/04/16 09:51 Physical Exam Vitals: Vital Signs Temp Pulse Pulse Pulse Resp BP BP 07/08/16 11:51 92 07/08/16 11:37 84 07/08/16 08:00 76 82 20 07/08/16 07:45 88 07/08/16 07:35 88 07/08/16 07:00 98.6 F 82 20 131/61 07/08/16 02:50 88 07/08/16 02:40 84 07/07/16 23:00 98.8 F 88 16 139/65 07/07/16 22:06 88 07/07/16 19:30 97.5 F L 86 17 144/67 Pulse Ox 07/08/16 11:51 07/08/16 11:37 07/08/16 08:00 07/08/16 07:45 07/08/16 07:35 94 L 07/08/16 07:00 94 L 07/08/16 02:50 07/08/16 02:40 07/07/16 23:00 94 L 07/07/16 22:06 07/07/16 19:30 95 Intake and Output 07/08/16 07/08/16 07/08/16 06:59 14:59 22:59 Intake Total 100 Output Total 1899 1999 Balance -1799 Intake: IV 100 ceFAZolin 3 gm In Sodium 100 Chloride 0.9% 100 ml @ 100 mls/hr IVPB Q8HR [facility] Rx#:[id number] Output: Urine 1899 1999 Uretheral (Higgins) 1900 Other: Voiding Method Indwelling Catheter GENERAL EXAM: Morbidly obese. Alert, comfortable in no apparent distress. HEAD: Normocephalic. EYES: Normal reaction of pupils, equal size. NOSE: Clear with pink turbinates. THROAT: There is crowding of the posterior pharynx. Short. No erythema or exudates. NECK: No masses, no JVD. CHEST: No chest wall deformity. LUNGS: Equal air entry with faint end expiratory wheeze. Diminished. CVS: S1 and S2 normal with no audible murmurs, regular rhythm. ABDOMEN: No hepatosplenomegaly, normal bowel sounds, no guarding or rigidity. SPINE: Hemovac remains in place. Epidural catheter in place. SKIN: No rashes Extremities: There is trace peripheral edema. No clubbing, no cyanosis. Peripheral pulses are intact. Results - Laboratory Findings CBC and BMP: 07/08/16 08:12 07/08/16 08:12 Abnormal lab findings: Abnormal Labs 07/06/16 07/06/16 07/06/16 07:32 10:43 12:38 WBC RBC Hgb Hct Neutrophils # Lymphocytes # Monocytes # Sodium BUN Creatinine Glucose POC Glucose (mg/dL) 127 H 131 H 137 H Calcium AST Total Protein Albumin 07/06/16 07/06/16 07/07/16 16:45 20:22 07:15 WBC RBC Hgb Hct Neutrophils # Lymphocytes # Monocytes # Sodium BUN Creatinine Glucose POC Glucose (mg/dL) 167 H 160 H 166 H Calcium AST Total Protein Albumin 07/07/16 07/07/16 07/07/16 07:31 07:31 11:46 WBC 11.9 H RBC 3.42 L Hgb 11.1 L D Hct 31.6 L Neutrophils # 9.8 H Lymphocytes # 0.7 L Monocytes # 1.2 H Sodium BUN 31 H Creatinine 1.90 H Glucose 155 H POC Glucose (mg/dL) 159 H Calcium 7.8 L AST Total Protein Albumin 07/07/16 07/07/16 07/08/16 17:17 19:55 07:17 WBC RBC Hgb Hct Neutrophils # Lymphocytes # Monocytes # Sodium BUN Creatinine Glucose POC Glucose (mg/dL) 153 H 163 H 164 H Calcium AST Total Protein Albumin 07/08/16 07/08/16 07/08/16 08:12 08:12 12:12 WBC 14.6 H RBC 3.37 L Hgb 10.4 L Hct 31.7 L Neutrophils # 12.2 H Lymphocytes # 0.7 L Monocytes # 1.3 H Sodium 136 L BUN 34 H Creatinine 1.51 H Glucose 151 H POC Glucose (mg/dL) 147 H Calcium 8.0 L AST 171 H Total Protein 5.9 L Albumin 3.4 L - Diagnostic Findings Chest x-ray: image reviewed Assessment and Plan Plan: Impression: #1 Chronic and ongoing severe back pain. Status post laminectomy, postoperative day #2. #2 Dyspnea, multifactorial in a patient required to lay flat in bed postoperatively along with some suspected obstructive sleep apnea, anxiety, and exacerbation of chronic obstructive pulmonary disease secondary to significant smoking history. #3 30+ one and half to 2 pack per day smoking history, quit approximately 1 month ago. #4 Diabetes mellitus. #5 Morbid obesity. Suspect obesity/hypoventilation syndrome/obstructive sleep apnea. #6 Hypertension. #7 Hyperlipidemia. Plan: The patient was seen and evaluated by Dr. Durbin. His chest x-ray and labs were reviewed. We will go ahead and add bronchodilators and Pulmicort inhalations. We'll continue to monitor his O2 saturations. Once the patient's postoperative pain is better controlled he'll be able to be repositioned in bed and able to sit up. He is encouraged regarding the increased use the incentive spirometer and cough and deep breathing exercises. He would benefit from an outpatient sleep study based on his clinical features of obstructive sleep apnea and according to the patient's he does have significant snoring and occasional episodes of apnea. We would also recommend cautious use of narcotics for suspected obesity/hypoventilation syndrome. We'll continue to follow make further recommendations based on his clinical status. Time with Patient: Greater than 30
[2016-07-08] MEDS: CYCLOBENZAPRINE 10 MG TAB PO PRN (16:59)
[2016-07-08 17:22] LABS: Glucose,Whole Blood 150 mg/dL (75-99)
[2016-07-08] MEDS: INSULIN LISPRO (humaLOG) 300 UNIT/3 ML VIAL SQ SCH (18:16)
[2016-07-08] MEDS: BUDESONIDE 0.5 MG/2 ML NEBU INHALATION SCH (19:57)
[2016-07-08] MEDS ORDERED: BUDESONIDE 0.5 MG/2 ML NEBU INHALATION SCH (20:00)
[2016-07-08] MEDS: ATORVASTATIN 40 MG TAB PO SCH (20:29)
[2016-07-08] MEDS: amLODIPine 10 MG TAB PO SCH (20:29)
[2016-07-08] MEDS: DOCUSATE 100 MG CAP PO SCH (20:30)
[2016-07-08 21:45] LABS: Glucose,Whole Blood 133 mg/dL (75-99)
[2016-07-08 23:27] LABS: Hemoglobin A1C 6.4 % (4.2-6.1)
[2016-07-09] MEDS: LACTATED RINGERS 1,000 ML IV SCH ×2 (03:16→13:34)
[2016-07-09] MEDS: HYDROmorphone PCA 5 MG/25 ML SYRINGE IV PRN ×3 (04:53→18:16)
[2016-07-09 07:29] LABS: Glucose,Whole Blood 143 mg/dL (75-99)
[2016-07-09] MEDS: INSULIN LISPRO (humaLOG) 300 UNIT/3 ML VIAL SQ SCH ×3 (08:03→18:19)
[2016-07-09] MEDS: ALLOPURINOL 300 MG TAB PO SCH (08:06)
[2016-07-09] MEDS: metFORMIN 500 MG TAB PO SCH ×2 (08:06→22:36)
[2016-07-09] MEDS: DOCUSATE 100 MG CAP PO SCH ×2 (08:06→22:36)
[2016-07-09] MEDS: LISINOPRIL 20 MG TAB PO SCH (08:06)
[2016-07-09] MEDS: HYDROCHLOROTHIAZIDE 25 MG TAB PO SCH ×2 (08:06→22:36)
[2016-07-09] MEDS: HYDROcodone/APAP 10-325MG 1 EACH TAB PO PRN (08:15)
[2016-07-09 08:40] LABS: Basophils % (A) 0 %; CH 31.2; CHCM 33.2; Eosinophils % (A) 0 %; HCT 29.5 % (39.0-53.0); HDW 2.36; HGB 10.1 gm/dL (13.0-17.5); Luc # (Auto) 0.32; Luc % (Auto) 3; Lymphocytes # (A) 0.8 k/uL (1.0-4.8); Lymphocytes % (A) 7 %; MCH 32.2 pg (25.0-35.0); MCHC 34.1 g/dL (31.0-37.0); MCV 94.6 fL (80.0-100.0); Mean Platelet Volume 7.2; Monocytes % (A) 8 %; Neutrophils # (A) 9.9 k/uL (1.3-7.7); Neutrophils % (A) 82 %; RBC 3.12 m/uL (4.30-5.90); RDW 13.5 % (11.5-15.5); WBC (Perox) 13.09
[2016-07-09 12:27] LABS: Glucose,Whole Blood 152 mg/dL (75-99)
--- NOTE | 2016-07-09 13:29 | P.PN ---
Subjective Principal diagnosis: Laminectomy and back pain Patient seen and examined covering for Dr. Dias. The patient states his breathing is much better today. He was able to cough up a brown thick mucous plug. The patient is working with incentive spirometer. He states he was able to move in bed today without excruciating pain. He is starting to regain his appetite. He has not yet had a bowel movement. Objective - Vital Signs Vital signs: Vital Signs Temp 98.4 F 07/09/16 07:00 Pulse 89 07/09/16 07:00 Resp 16 07/09/16 07:00 BP 155/65 07/09/16 07:00 Pulse Ox 92 L 07/09/16 07:00 Intake & Output 07/08/16 07/09/16 07/09/16 18:59 06:59 18:59 Intake Total 600 Output Total 4000 1320 70 Balance -3400 -1320 -70 Intake: Oral 600 Output: Drainage 70 70 Right Lower Back 70 70 Urine 4000 1250 Other: Voiding Method Indwelling Catheter Indwelling Catheter - Exam Gen.: Patient is alert and oriented 3, no acute distress, morbidly obese Cardiovascular: Regular rate and rhythm, S1/S2 next Lungs: Diminished at the bases otherwise clear Abdomen: Soft nontender nondistended positive bowel sounds Extremities: 1+ pitting edema - Labs CBC & Chem 7: 07/09/16 07:47 07/08/16 08:12 Labs: Abnormal Lab Results - Last 24 Hours (Table) 07/08/16 07/08/16 07/08/16 Range/Units 08:12 17:12 21:31 WBC (3.8-10.6) k/uL RBC (4.30-5.90) m/uL Hgb (13.0-17.5) gm/dL Hct (39.0-53.0) % Neutrophils # (1.3-7.7) k/uL Lymphocytes # (1.0-4.8) k/uL POC Glucose (mg/dL) 150 H 133 H (75-99) mg/dL Hemoglobin A1c 6.4 H (4.2-6.1) % 07/09/16 07/09/16 07/09/16 Range/Units 07:20 07:47 12:20 WBC 12.0 H (3.8-10.6) k/uL RBC 3.12 L (4.30-5.90) m/uL Hgb 10.1 L (13.0-17.5) gm/dL Hct 29.5 L (39.0-53.0) % Neutrophils # 9.9 H (1.3-7.7) k/uL Lymphocytes # 0.8 L (1.0-4.8) k/uL POC Glucose (mg/dL) 143 H 152 H (75-99) mg/dL Hemoglobin A1c (4.2-6.1) % Assessment and Plan Plan: Severe chronic lumbar stenosis with intractable pain Underlying COPD Diabetes mellitus type 2 Constipation Morbid obesity Hypertension Question underlying obstructive sleep apnea Leukocytosis, likely reactive Anemia Acute kidney injury O2 to maintain saturation greater than equal to 88% Colace Continue IV fluids to 75 mL an hour Bronchodilators ContinuePulmicort Pulmonary following Pain control per surgery BS control - add insulin ssc Monitor blood sugar Monitor renal function Incentive spirometry and pulmonary hygiene GI prophylaxis: Protonix Will need to discuss DVT prophylaxis with surgery - when to start subcu heparin ? Will continue SCDs for now Following for Dr. Dias over the weekend.
[2016-07-09] MEDS: IPRATROPIUM-ALBUTEROL 3 ML NEB INHALATION SCH ×3 (14:00→19:36)
--- NOTE | 2016-07-09 14:45 | P.PN ---
Subjective Principal diagnosis: Chronic back pain This is a very pleasant 55-year-old gentleman who follows with Dr. Dias as his primary care physician. He has a history of diabetes mellitus, morbid obesity, severe hearing loss and chronic back pain. He has been having progressive pain and weakness in the lower extremities. He also has a significant smoking history and was seen and evaluated by Dr. Mcmillan in our office prior to his surgery. He has a FEV1 value of 82% of predicted and was cleared for the back surgery. He presented here on 07/06/2016 to undergo a laminectomy which was performed by Dr. Gonzales. The patient tolerated the procedure well however had been having ongoing issues with intractable pain. His medications were adjusted accordingly. We are seeing the patient today in consultation for ongoing hypoxemia. He has been laying flat in bed since his surgery. He has some clinical features of obstructive sleep apnea. He feels his shortness of breath was related to the uncontrolled pain. Presently he is awake and alert in no acute distress. He continues to utilize 4 L/m per nasal cannula to maintain O2 saturations in the 90s. He's been afebrile. He is slightly bronchospastic and wheezy. He has significant production of sputum. He did quit smoking approximately one month ago. His chest x-ray revealed no evidence of acute pulmonary process. The patient is seen again today 07/09/2016 in follow-up. He is awake and alert in no acute distress. He is sitting up in the chair at the bedside. His pain is better controlled. He denies any worsening shortness of breath at this time. He continues with the loose productive cough but the phlegm has subsided quite a bit since yesterday. He is maintaining O2 saturations in the low 90s on room air. He's been afebrile. Hemodynamically stable. He is working well with the incentive spirometer and cough and deep breathing exercises. Objective - Vital Signs Vital signs: Vital Signs Temp 98.4 F 07/09/16 07:00 Pulse 89 07/09/16 07:00 Resp 16 07/09/16 07:00 BP 155/65 07/09/16 07:00 Pulse Ox 92 L 07/09/16 07:00 Intake & Output 07/08/16 07/09/16 07/09/16 18:59 06:59 18:59 Intake Total 600 Output Total 4000 1320 70 Balance -3400 -1320 -70 Intake: Oral 600 Output: Drainage 70 70 Right Lower Back 70 70 Urine 4000 1250 Other: Voiding Method Indwelling Catheter Indwelling Catheter - Exam GENERAL EXAM: Morbidly obese. Alert, comfortable in no apparent distress. HEAD: Normocephalic. EYES: Normal reaction of pupils, equal size. NOSE: Clear with pink turbinates. THROAT: There is crowding of the posterior pharynx. Short. No erythema or exudates. NECK: No masses, no JVD. CHEST: No chest wall deformity. LUNGS: Equal air entry with faint end expiratory wheeze. Diminished. CVS: S1 and S2 normal with no audible murmurs, regular rhythm. ABDOMEN: No hepatosplenomegaly, normal bowel sounds, no guarding or rigidity. SPINE: Hemovac remains in place. Epidural catheter in place. SKIN: No rashes Extremities: There is trace peripheral edema. No clubbing, no cyanosis. Peripheral pulses are intact. - Labs CBC & Chem 7: 07/09/16 07:47 07/08/16 08:12 Labs: Abnormal Lab Results - Last 24 Hours (Table) 07/08/16 07/08/16 07/08/16 Range/Units 08:12 17:12 21:31 WBC (3.8-10.6) k/uL RBC (4.30-5.90) m/uL Hgb (13.0-17.5) gm/dL Hct (39.0-53.0) % Neutrophils # (1.3-7.7) k/uL Lymphocytes # (1.0-4.8) k/uL POC Glucose (mg/dL) 150 H 133 H (75-99) mg/dL Hemoglobin A1c 6.4 H (4.2-6.1) % 07/09/16 07/09/16 07/09/16 Range/Units 07:20 07:47 12:20 WBC 12.0 H (3.8-10.6) k/uL RBC 3.12 L (4.30-5.90) m/uL Hgb 10.1 L (13.0-17.5) gm/dL Hct 29.5 L (39.0-53.0) % Neutrophils # 9.9 H (1.3-7.7) k/uL Lymphocytes # 0.8 L (1.0-4.8) k/uL POC Glucose (mg/dL) 143 H 152 H (75-99) mg/dL Hemoglobin A1c (4.2-6.1) % Assessment and Plan Plan: Impression: #1 Chronic and ongoing severe back pain. Status post laminectomy, postoperative day #2. #2 Dyspnea, multifactorial in a patient required to lay flat in bed postoperatively along with some suspected obstructive sleep apnea, anxiety, and exacerbation of chronic obstructive pulmonary disease secondary to significant smoking history. #3 30+ one and half to 2 pack per day smoking history, quit approximately 1 month ago. #4 Diabetes mellitus. #5 Morbid obesity. Suspect obesity/hypoventilation syndrome/obstructive sleep apnea. #6 Hypertension. #7 Hyperlipidemia. Plan: The patient was seen and evaluated by Dr. Durbin. We will go continue with his bronchodilators and Pulmicort inhalations. We'll continue to monitor his O2 saturations. He is encouraged regarding the increased use the incentive spirometer and cough and deep breathing exercises. He would benefit from an outpatient sleep study based on his clinical features of obstructive sleep apnea and according to the patient's he does have significant snoring and occasional episodes of apnea. We would also recommend cautious use of narcotics for suspected obesity/hypoventilation syndrome. We will increase his activity as tolerated. We'll continue to follow make further recommendations based on his clinical status.
[2016-07-09] MEDS: HYDROmorphone 1 MG/ML 1 ML SYRINGE IVP PRN (15:12)
[2016-07-09] MEDS: BUDESONIDE 0.5 MG/2 ML NEBU INHALATION SCH ×2 (15:50→19:37)
[2016-07-09 17:33] LABS: Glucose,Whole Blood 156 mg/dL (75-99)
--- NOTE | 2016-07-09 19:34 | P.PN ---
Subjective Principal diagnosis: S/P L2- S1 Decompression with instrumented Fusion Patient is a pleasant 55 yo male seen at bedside this morning. He is POD #3 from L2-S1 decompression with instrumented fusion. He continues to have low back pain as expected from the surgery. He does feel he has had some mild improvement. He denies radicular symptoms including numbness or tingling. He has been on dural repair protocol and progressing with HOB elevation. He is denying headaches. Pulmonology is following and appears he is stable and chest studies have been negative for acute processes.Medicine is following for post op medical management as well. He is denying new complaints today. ROS is negative for fever, chills, chest pain, shortness breath, calf pain, abdominal pain, headaches, dizziness, nausea, vomitting, slurred speech or other. Objective - Vital Signs Vital signs: Vital Signs Temp 98.7 F 07/09/16 15:00 Pulse 100 07/09/16 16:00 Resp 22 07/09/16 16:00 BP 131/60 07/09/16 15:00 Pulse Ox 91 L 07/09/16 15:10 Intake & Output 07/09/16 07/09/16 07/10/16 06:59 18:59 06:59 Intake Total 960 Output Total 1320 870 Balance -1320 90 Intake: Intake, IV Titration 240 Amount Lactated Ringers 1,000 ml 240 As IV .[facility] Rx#: [id number] Oral 720 Output: Drainage 70 70 Right Lower Back 70 70 Urine 1250 800 Other: Voiding Method Indwelling Catheter Indwelling Catheter - Exam GEN: NAD, AOx5, MAA. Sitting up at 45 degrees Lumbar: Dressing and hemovac intact. The dressing is benign appearing. No evidence of active bleeding or drainage. The skin is benign. The hemovac has approx 20cc of serosangous fluid. LE: Motor is intact against gravity at L2-S1 myotomes. Dermatomes L2-S1 are intact to light touch. Calves are soft and nontender. 2+ dorsalis pedis pulse and less than 2 sec cap refill present distally. - Constitutional General appearance: Present: no acute distress, obese - Musculoskeletal Musculoskeletal: Present: strength equal bilaterally - Psychiatric Psychiatric: Present: A&O x's 3, appropriate affect, intact judgment & insight - Labs CBC & Chem 7: 07/09/16 07:47 07/08/16 08:12 Labs: Abnormal Lab Results - Last 24 Hours (Table) 07/08/16 07/08/16 07/09/16 Range/Units 08:12 21:31 07:20 WBC (3.8-10.6) k/uL RBC (4.30-5.90) m/uL Hgb (13.0-17.5) gm/dL Hct (39.0-53.0) % Neutrophils # (1.3-7.7) k/uL Lymphocytes # (1.0-4.8) k/uL POC Glucose (mg/dL) 133 H 143 H (75-99) mg/dL Hemoglobin A1c 6.4 H (4.2-6.1) % 07/09/16 07/09/16 07/09/16 Range/Units 07:47 12:20 17:30 WBC 12.0 H (3.8-10.6) k/uL RBC 3.12 L (4.30-5.90) m/uL Hgb 10.1 L (13.0-17.5) gm/dL Hct 29.5 L (39.0-53.0) % Neutrophils # 9.9 H (1.3-7.7) k/uL Lymphocytes # 0.8 L (1.0-4.8) k/uL POC Glucose (mg/dL) 152 H 156 H (75-99) mg/dL Hemoglobin A1c (4.2-6.1) % Assessment and Plan (1) Degenerative scoliosis Narrative/Plan: He will continue with post op orthopedic spine protocol including pain management, wound care, hemovac management, DVT prophylaxis and medical management. Continue with dural repair precautions and advised to log roll along with gradual progression of sitting up. Will check hvac output tomorrow and hopefully progress with his sitting up to out of bed to chair soon. Appreciate pulmonology and medicine assistance. Status: Acute Time with Patient: Less than 30
[2016-07-09 20:38] LABS: Glucose,Whole Blood 170 mg/dL (75-99)
[2016-07-09] MEDS: amLODIPine 10 MG TAB PO SCH (22:35)
[2016-07-09] MEDS: ATORVASTATIN 40 MG TAB PO SCH (22:36)
[2016-07-10] MEDS: HYDROcodone/APAP 10-325MG 1 EACH TAB PO PRN ×3 (00:38→19:43)
[2016-07-10] MEDS: LACTATED RINGERS 1,000 ML IV SCH ×2 (05:25→17:49)
[2016-07-10] MEDS: HYDROmorphone PCA 5 MG/25 ML SYRINGE IV PRN ×4 (05:25→23:03)
[2016-07-10 08:00] LABS: Glucose,Whole Blood 150 mg/dL (75-99)
[2016-07-10] MEDS: INSULIN LISPRO (humaLOG) 300 UNIT/3 ML VIAL SQ SCH ×3 (08:40→17:50)
[2016-07-10] MEDS: PANTOPRAZOLE 40 MG TABLET PO SCH (08:42)
[2016-07-10] MEDS: LISINOPRIL 20 MG TAB PO SCH (08:45)
[2016-07-10] MEDS: ALLOPURINOL 300 MG TAB PO SCH (08:45)
[2016-07-10] MEDS: DOCUSATE 100 MG CAP PO SCH ×2 (08:45→20:08)
[2016-07-10] MEDS: metFORMIN 500 MG TAB PO SCH ×2 (08:45→20:09)
[2016-07-10] MEDS: HYDROCHLOROTHIAZIDE 25 MG TAB PO SCH ×2 (08:45→20:08)
[2016-07-10] MEDS: IPRATROPIUM-ALBUTEROL 3 ML NEB INHALATION SCH ×4 (09:18→20:06)
[2016-07-10] MEDS: BUDESONIDE 1 MG/2 ML NEBU INHALATION SCH ×2 (09:22→20:06)
[2016-07-10] MEDS: BUDESONIDE 0.5 MG/2 ML NEBU INHALATION SCH (09:23)
--- NOTE | 2016-07-10 09:37 | P.PN ---
Subjective Principal diagnosis: S/P L2- S1 Decompression with instrumented Fusion Patient is a pleasant 55 yo male seen at bedside this morning. He is POD #4 from L2-S1 decompression with instrumented fusion. He continues to have low back pain as expected from the surgery. He does feel he continues to improve some. He was out of bed to chair yesterday. He denies radicular symptoms including numbness or tingling. He has been on dural repair protocol and denies headaches when sitting up. Pulmonology is following and appears he is stable and chest studies have been negative for acute processes.Medicine is following for post op medical management as well. He is denying new complaints today. ROS is negative for fever, chills, chest pain, shortness breath, calf pain, abdominal pain, headaches, dizziness, nausea, vomitting, slurred speech or other. Objective - Vital Signs Vital signs: Vital Signs Temp 98.5 F 07/10/16 07:00 Pulse 84 07/10/16 09:22 Resp 20 07/10/16 07:00 BP 158/68 07/10/16 07:00 Pulse Ox 93 L 07/10/16 07:00 Intake & Output 07/09/16 07/10/16 07/10/16 18:59 06:59 18:59 Intake Total 960 575 Output Total 870 1230 Balance 90 -655 Intake: Intake, IV Titration 240 225 Amount Lactated Ringers 1,000 ml 225 @ 75 mls/hr IV .[id number] [facility] Rx#:[id number] Lactated Ringers 1,000 ml 240 As IV .[facility] Rx#: [id number] Oral 720 350 Output: Drainage 70 30 Right Lower Back 70 30 Urine 800 1200 Other: Voiding Method Indwelling Catheter Indwelling Catheter - Exam GEN: NAD, AOx5, MAA. Resting comfortably ABD: Distended and unchanged. Mild guarding tenderness. Lumbar: Dressing and hemovac intact. The dressing is benign appearing. No evidence of active bleeding or drainage. There is a ruptured blister at the left buttock where a petroleum gauze and bandage has been applied. Otherwise the skin is benign. The hemovac has approx 10cc of serosangous fluid. LE: Motor is intact against gravity at L2-S1 myotomes. Dermatomes L2-S1 are intact to light touch. Calves are soft and nontender. 2+ dorsalis pedis pulse and less than 2 sec cap refill present distally. - Constitutional General appearance: Present: no acute distress - Psychiatric Psychiatric: Present: A&O x's 3, appropriate affect, intact judgment & insight - Labs CBC & Chem 7: 07/09/16 07:47 07/08/16 08:12 Labs: Abnormal Lab Results - Last 24 Hours (Table) 07/09/16 07/09/16 07/09/16 Range/Units 12:20 17:30 20:18 POC Glucose (mg/dL) 152 H 156 H 170 H (75-99) mg/dL 07/10/16 Range/Units 07:58 POC Glucose (mg/dL) 150 H (75-99) mg/dL Assessment and Plan (1) Degenerative scoliosis Narrative/Plan: He will continue with post op orthopedic spine protocol including pain management, wound care, hemovac management, DVT prophylaxis and medical management. Encourage to log roll Q hour, get out of bed to chair and start ambulating with PT. He had a negative abdominal pelvic CT for distended abdomen. He is passing flatus. Continue to monitor and repeat ABD Xray if worsens. Continue to monitor for bed sores. Status: Acute Time with Patient: Less than 30
[2016-07-10 12:05] LABS: Glucose,Whole Blood 143 mg/dL (75-99)
[2016-07-10] MEDS ORDERED: MAGNESIUM HYDROXIDE 2,400 MG/10 ML CUP PO PRN (16:09)
--- NOTE | 2016-07-10 16:09 | P.PN ---
Subjective Principal diagnosis: Laminectomy and back pain Patient seen and examined covering for Dr. Dias. The patient states his breathing is better today. He is having significant back pain. He was able to get out of bed and walk twice today. He states his cough is improving. He still has not had a bowel movement. Objective - Vital Signs Vital signs: Vital Signs Temp 98.5 F 07/10/16 07:00 Pulse 82 07/10/16 15:27 Resp 20 07/10/16 07:00 BP 158/68 07/10/16 07:00 Pulse Ox 93 L 07/10/16 07:00 Intake & Output 07/09/16 07/10/16 07/10/16 18:59 06:59 18:59 Intake Total 960 575 Output Total 870 1230 Balance 90 -655 Intake: Intake, IV Titration 240 225 Amount Lactated Ringers 1,000 ml 225 @ 75 mls/hr IV .[id number] Rx#:[id number] Lactated Ringers 1,000 ml 240 As IV .[facility] Rx#: [id number] Oral 720 350 Output: Drainage 70 30 Right Lower Back 70 30 Urine 800 1200 Other: Voiding Method Indwelling Catheter Indwelling Catheter - Exam Gen.: Patient is alert and oriented 3, no acute distress, morbidly obese Cardiovascular: Regular rate and rhythm, S1/S2 next Lungs: Diminished at the bases otherwise clear Abdomen: Soft nontender nondistended positive bowel sounds Extremities: 1+ pitting edema - Labs CBC & Chem 7: 07/09/16 07:47 07/08/16 08:12 Labs: Abnormal Lab Results - Last 24 Hours (Table) 07/09/16 07/09/16 07/10/16 Range/Units 17:30 20:18 07:58 POC Glucose (mg/dL) 156 H 170 H 150 H (75-99) mg/dL 07/10/16 Range/Units 12:03 POC Glucose (mg/dL) 143 H (75-99) mg/dL Assessment and Plan Plan: Severe chronic lumbar stenosis with intractable pain Underlying COPD Diabetes mellitus type 2 Constipation Morbid obesity Hypertension Question underlying obstructive sleep apnea Leukocytosis, likely reactive Anemia Acute kidney injury O2 to maintain saturation greater than equal to 88% Colace Continue IV fluids to 75 mL an hour Bronchodilators ContinuePulmicort Pulmonary following Pain control per surgery BS control - add insulin ssc Monitor blood sugar Monitor renal function Incentive spirometry and pulmonary hygiene GI prophylaxis: Protonix Repeat AM labs Will need to discuss DVT prophylaxis with surgery - when to start subcu heparin ? Will continue SCDs for now Following for Dr. Dias over the weekend.
[2016-07-10 17:15] LABS: Glucose,Whole Blood 173 mg/dL (75-99)
[2016-07-10] MEDS: ceFAZolin 3 GM in SODIUM CHLORIDE 0.9% 100 ML IVPB SCH (20:08)
[2016-07-10] MEDS: ATORVASTATIN 40 MG TAB PO SCH (20:08)
[2016-07-10 20:30] LABS: Glucose,Whole Blood 168 mg/dL (75-99)
[2016-07-10] MEDS: amLODIPine 10 MG TAB PO SCH (22:43)
[2016-07-11] MEDS: HYDROcodone/APAP 10-325MG 1 EACH TAB PO PRN ×5 (00:06→20:04)
[2016-07-11] MEDS: LACTATED RINGERS 1,000 ML IV SCH ×2 (06:00→17:40)
[2016-07-11 07:33] LABS: Glucose,Whole Blood 135 mg/dL (75-99)
[2016-07-11] MEDS: HYDROmorphone PCA 5 MG/25 ML SYRINGE IV PRN (07:35)
[2016-07-11 07:38] LABS: CH 31.5; CHCM 33.1; HCT 26.4 % (39.0-53.0); HDW 2.51; HGB 8.9 gm/dL (13.0-17.5); MCH 32.4 pg (25.0-35.0); MCHC 33.9 g/dL (31.0-37.0); MCV 95.6 fL (80.0-100.0); RBC 2.76 m/uL (4.30-5.90); RDW 13.5 % (11.5-15.5); WBC 11.2 k/uL (3.8-10.6)
[2016-07-11] MEDS: BUDESONIDE 1 MG/2 ML NEBU INHALATION SCH ×2 (08:09→20:47)
[2016-07-11] MEDS: IPRATROPIUM-ALBUTEROL 3 ML NEB INHALATION SCH ×4 (08:09→20:47)
[2016-07-11 08:23] LABS: Anion Gap 10 mmol/L; Blood Urea Nitrogen 53 mg/dL (9-20); Calcium 8.2 mg/dL (8.4-10.2); Carbon Dioxide 31 mmol/L (22-30); Chloride 96 mmol/L (98-107); Glucose 129 mg/dL (74-99); Non-African American GFR(MDRD) >60 (>60 ml/min/1.73 sqM); Potassium 3.4 mmol/L (3.5-5.1); Sodium 137 mmol/L (137-145)
--- NOTE | 2016-07-11 08:57 | P.PN ---
Progress Note - Text Orthopedic Spine Patient is a pleasant 55-year-old male who is seen and examined at the bedside following L2-S1 posterior lateral decompression and fusion performed last Monday. He has continued to have some improvement over the weekend. He had remained lying flat in bed until Monday at lunchtime following a small durotomy. He was able to sit up at that time with no evidence of spinal headache. Over the weekend he has been able to stand at the bedside and perform small ambulation with the assistance of physical therapy. He has not been experiencing any spinal headaches. He has been able to increase his appetite. He continues to receive breathing treatments and has been breathing better without any significant difficulties. He states his abdomen feels better and he is not currently experiencing any abdominal pain. He continues to have some distention of the upper abdomen with no pain with palpation. He states he has not had a bowel movement postsurgically but has been passing lots of gas. He's hopeful for a bowel movement today. He states he is hesitant to start any stool softeners or laxatives at this time. He is not currently complaining of anterior rib pain which he was experiencing this past Monday. His pain is been better controlled. He continues to take [place] 10 mg/325 mg orally and receive both Dilaudid push and CENTRIFUGAL SPINNER. We discussed we'll plan to discontinue his CENTRIFUGAL SPINNER today and will begin the weaning process off of the Dilaudid IV push. Starting some time Monday and over the weekend he experienced a superficial skin wound over the left upper buttock. Since that time, this has been covered with Adaptic and ABDs. His Hemovac drain remains intact as he continues to have some small drainage from the superior portion of his incision. He does feel he is having some improvement postsurgically. He feels that his pain is able to be controlled with oral medication and he is able to have a bowel movement today, he may be ready for discharge to rehabilitation facility tomorrow. We are currently planning for him to be discharged to [facility]. Currently does not complain of nausea, vomiting , fever, or chills. Patient states pain has been adequately controlled. Patient is eating and voiding freely without difficulty. Physical Exam Lumbar Fusion: Status post surgical day number 5 Patient is awake, alert, and oriented 3 Vital signs stable Good chest excursion with deep inspiration and expiration Abdomen nontender with palpation; upper abdomen firm with some distention Dorsiflexion, plantarflexion, and extensor hallucis longus positive sustained bilaterally No signs or symptoms of DVT; no calf pain; pneumatic cuffs not currently intact bilateral lower extremities Dressing is removed during physical examination; no active drainage from the incision site; lumbar fusion incision appears clean, dry, and intact Hemovac drain remains secure Nonstick Telfa and Tegaderm applied over the lumbar incision site Evidence of superficial skin wound over the left buttock measuring approximately 6 cm in width in 4 mm in height with no active drainage; area is erythematous with no sign of infection Buttock wound is covered with Adaptic and ABD Neurovascularly intact bilaterally lower extremities Assessment: Posterior lateral decompression and fusion L2-S1 Incidental 1 mm durotomy Lumbar pain Left buttock wound COPD Plan: 1. Ambulate as tolerated; work with Physical Therapy to increase mobilization 2. Continue pain control with IV and oral medications; we will plan to discontinue his CENTRIFUGAL SPINNER and will plan to wean down the IV Dilaudid push with plans for discharge to rehabilitation facility tomorrow 3. Dressing changed to Telfa and Tegaderm; Hemovac drain to remain intact until discharge; Adaptic and ABD to remain intact over the left buttock wound; We will plan for daily dressing changes while at rehab. 4. We will continue to monitor for bowel movement. Patient has continued to have gas and is not currently complaining of any abdominal pain. If he is unable to help bowel movement today, we will consider stool softener and/or laxative. 5. Medical management can continue to manage patient for patient's other medical issues 6. We will continue to follow the patient closely; if the patient continues to improve and his pain is well controlled, we will plan for discharge to [facility] tomorrow, 07/12/2016 7. Patient can follow-up with Piyush Plasencia PA-C or Dr. Pavan Gonzales at [facility] in 2-3 weeks following discharge
[2016-07-11] MEDS: INSULIN LISPRO (humaLOG) 300 UNIT/3 ML VIAL SQ SCH ×4 (09:02→21:34)
[2016-07-11] MEDS: ceFAZolin 3 GM in SODIUM CHLORIDE 0.9% 100 ML IVPB SCH ×2 (09:02→21:40)
[2016-07-11] MEDS: HYDROCHLOROTHIAZIDE 25 MG TAB PO SCH ×2 (09:03→21:33)
[2016-07-11] MEDS: DOCUSATE 100 MG CAP PO SCH ×2 (09:03→21:33)
[2016-07-11] MEDS: ALLOPURINOL 300 MG TAB PO SCH (09:03)
[2016-07-11] MEDS: PANTOPRAZOLE 40 MG TABLET PO SCH (09:03)
[2016-07-11] MEDS: metFORMIN 500 MG TAB PO SCH ×2 (09:03→21:33)
[2016-07-11] MEDS: LISINOPRIL 20 MG TAB PO SCH (09:03)
[2016-07-11 11:38] LABS: Glucose,Whole Blood 138 mg/dL (75-99)
[2016-07-11] MEDS ORDERED: Potassium Replacement Protocol 1 EACH MISC MISCELLANE PRN (15:21)
--- NOTE | 2016-07-11 15:28 | P.PN ---
Subjective Interval follow-up: Patient is evaluated at bedside weighs currently sitting up in bed. Patient is feeling well. Denies chills, fevers, nausea, vomiting, shortness of breath, chest pain, or abdominal pain. Back pain controlled with current pain regimen. Patient is urinating without difficulty. Patient has been up walking in the [place]. Patient reports flatus without bowel movement. Patient is tolerating diet. White count improved to 11.2. Hemoglobin decreased to 8.9. Potassium 3.4. Objective - Vital Signs Vital signs: Vital Signs Temp 98.1 F 07/11/16 07:00 Pulse 88 07/11/16 12:07 Resp 22 07/11/16 07:00 BP 115/56 07/11/16 07:00 Pulse Ox 93 L 07/11/16 08:09 Intake & Output 07/10/16 07/11/16 07/11/16 18:59 06:59 18:59 Intake Total 500 1140 100 Output Total 2150 2985 800 Balance -8191 -8955 -108 Intake: Intake, IV Titration 100 Amount ceFAZolin 3 gm In Sodium 100 Chloride 0.9% 100 ml @ 100 mls/hr IVPB Q12HR [facility] Rx#:[id number] Oral 500 1140 Output: Drainage 285 Right Lower Back 285 Urine 2150 2700 800 Uretheral ([place]) 850 850 Other: Voiding Method Toilet Toilet Toilet Bedside Commode Bedside Commode Urinal Urinal # Voids 2 - Exam GENERAL: Pt awake and alert, well-appearing, well-nourished, and in no acute distress. HEAD: Atraumatic, normocephalic. EYES: Pupils equal, round, sclera anicteric, conjunctiva are normal. ENT: Moist mucous membranes. NECK: Supple. LUNGS: Breath sounds clear to auscultation bilaterally. No wheezes, rales, or rhonchi. HEART: Heart S1, S2, no S3 or S4. Regular rate and rhythm. No murmurs, rubs or gallops. ABDOMEN: Soft, nontender, nondistended, normoactive bowel sounds. No guarding, no rebound. No masses or organomegaly appreciated. EXTREMITIES: 2+ peripheral pulses. No edema. No calf tenderness. NEUROLOGICAL: Pt oriented x 3. No focal deficits. Strength and sensation grossly intact. PSYCH: Normal mood, normal affect. SKIN: Warm, dry. Dressing to posterior back dry and intact. Hemovac compressed. - Labs CBC & Chem 7: 07/11/16 07:23 07/11/16 07:23 Labs: Abnormal Lab Results - Last 24 Hours (Table) 07/10/16 07/10/16 07/11/16 Range/Units 16:56 20:18 07:23 WBC 11.2 H (3.8-10.6) k/uL RBC 2.76 L (4.30-5.90) m/uL Hgb 8.9 L (13.0-17.5) gm/dL Hct 26.4 L (39.0-53.0) % Potassium (3.5-5.1) mmol/L Chloride (98-107) mmol/L Carbon Dioxide (22-30) mmol/L BUN (9-20) mg/dL Glucose (74-99) mg/dL POC Glucose (mg/dL) 173 H 168 H (75-99) mg/dL Calcium (8.4-10.2) mg/dL 07/11/16 07/11/16 07/11/16 Range/Units 07:23 07:30 11:36 WBC (3.8-10.6) k/uL RBC (4.30-5.90) m/uL Hgb (13.0-17.5) gm/dL Hct (39.0-53.0) % Potassium 3.4 L (3.5-5.1) mmol/L Chloride 96 L (98-107) mmol/L Carbon Dioxide 31 H (22-30) mmol/L BUN 53 H (9-20) mg/dL Glucose 129 H (74-99) mg/dL POC Glucose (mg/dL) 135 H 138 H (75-99) mg/dL Calcium 8.2 L (8.4-10.2) mg/dL Assessment and Plan Plan: Impression: 1. Degenerative scoliosis, degenerative disc degeneration, severe spinal stenosis L2 to S1, facet arthrosis L2 to S1, low back pain with lower extremity radiculopathy, spondylolisthesis L4 5 and lateral listhesis L3 4 status post Laminectomy and decompression with wide bilateral foraminotomies and partial facetectomy L2-3 L3 4 L4 5 and L5-S1; Posterior lateral decompression and fusion L2-3 L3 4 L4 5 and L5-S1 on 07/06/2016 2. COPD. 3. Diabetes mellitus type 2. 4. Constipation. 5. Morbid obesity. 6. Hypertension. 7. Question underlying obstructive sleep apnea. 8. Leukocytosis, suspect reactive. 9. Anemia suspected secondary to hemodilution and possible blood loss from surgery. 10. Hypokalemia. 11. Decubitus ulcer to left buttocks, stage 1. Please see nursing documentation for wound measurements. Plan: Continue surgical management by orthopedic service. Continue current medications. Increase activity. Replace magnesium per protocol. Continue GI and DVT prophylaxis. Repeat CBC and BMP in a.m. Possible discharge to subacute rehab tomorrow pending clinical course. The above impression and plan have been discussed and directed by Dr. Dias. Jordan SPANGLER acting as scribe for Dr. Dias.
--- NOTE | 2016-07-11 16:32 | P.PN ---
Subjective Principal diagnosis: Status post laminectomy postoperative day #3 This is a very pleasant 55-year-old gentleman who follows with Dr. Dias as his primary care physician. He has a history of diabetes mellitus, morbid obesity, severe hearing loss and chronic back pain. He has been having progressive pain and weakness in the lower extremities. He also has a significant smoking history and was seen and evaluated by Dr. Mcmillan in our office prior to his surgery. He has a FEV1 value of 82% of predicted and was cleared for the back surgery. He presented here on 07/06/2016 to undergo a laminectomy which was performed by Dr. Gonzales. The patient tolerated the procedure well however had been having ongoing issues with intractable pain. His medications were adjusted accordingly. We are seeing the patient today in consultation for ongoing hypoxemia. He has been laying flat in bed since his surgery. He has some clinical features of obstructive sleep apnea. He feels his shortness of breath was related to the uncontrolled pain. Presently he is awake and alert in no acute distress. He continues to utilize 4 L/m per nasal cannula to maintain O2 saturations in the 90s. He's been afebrile. He is slightly bronchospastic and wheezy. He has significant production of sputum. He did quit smoking approximately one month ago. His chest x-ray revealed no evidence of acute pulmonary process. The patient is seen again today 07/09/2016 in follow-up. He is awake and alert in no acute distress. He is sitting up in the chair at the bedside. His pain is better controlled. He denies any worsening shortness of breath at this time. He continues with the loose productive cough but the phlegm has subsided quite a bit since yesterday. He is maintaining O2 saturations in the low 90s on room air. He's been afebrile. Hemodynamically stable. He is working well with the incentive spirometer and cough and deep breathing exercises. Reevaluated on 07/11/2016, patient seems to be doing well from the pulmonary perspective, however upon physical examination, I have noted that the patient has significant ulcerations over his buttocks area, and I felt it would be worthwhile having infectious disease evaluated the patient. Pulmonary-griggs, no cough no wheezing no shortness of breath. Labs were reviewed hemoglobin is 8.9 WBC count is 11.2 BUN is elevated at 53 creatinine is 1.21, I believe the patient would benefit from hydration. Objective - Vital Signs Vital signs: Vital Signs Temp 98 F 07/11/16 15:00 Pulse 93 07/11/16 15:00 Resp 20 07/11/16 15:00 BP 132/63 07/11/16 15:00 Pulse Ox 95 07/11/16 15:00 Intake & Output 07/10/16 07/11/16 07/11/16 18:59 06:59 18:59 Intake Total 500 1140 100 Output Total 2150 2985 800 Balance -1650 -1845 -700 Intake: Intake, IV Titration 100 Amount ceFAZolin 3 gm In Sodium 100 Chloride 0.9% 100 ml @ 100 mls/hr IVPB Q12HR [facility] Rx#:[id number] Oral 500 1140 Output: Drainage 285 Right Lower Back 285 Urine 2150 2700 800 Uretheral (Higgins) 850 850 Other: Voiding Method Toilet Toilet Toilet Bedside Commode Bedside Commode Urinal Urinal # Voids 2 - Exam GENERAL EXAM: Morbidly obese. Alert, comfortable in no apparent distress. HEAD: Normocephalic. EYES: Normal reaction of pupils, equal size. NOSE: Clear with pink turbinates. THROAT: There is crowding of the posterior pharynx. Short. No erythema or exudates. NECK: No masses, no JVD. CHEST: No chest wall deformity. LUNGS: Equal air entry with faint end expiratory wheeze. Diminished. CVS: S1 and S2 normal with no audible murmurs, regular rhythm. ABDOMEN: No hepatosplenomegaly, normal bowel sounds, no guarding or rigidity. SPINE: Hemovac remains in place. Epidural catheter in place. SKIN: Significant decubitus ulcers stage II noted in the buttocks area bilaterally. Extremities: There is trace peripheral edema. No clubbing, no cyanosis. Peripheral pulses are intact. - Labs CBC & Chem 7: 07/11/16 07:23 07/11/16 07:23 Labs: Abnormal Lab Results - Last 24 Hours (Table) 07/10/16 07/10/16 07/11/16 Range/Units 16:56 20:18 07:23 WBC 11.2 H (3.8-10.6) k/uL RBC 2.76 L (4.30-5.90) m/uL Hgb 8.9 L (13.0-17.5) gm/dL Hct 26.4 L (39.0-53.0) % Potassium (3.5-5.1) mmol/L Chloride (98-107) mmol/L Carbon Dioxide (22-30) mmol/L BUN (9-20) mg/dL Glucose (74-99) mg/dL POC Glucose (mg/dL) 173 H 168 H (75-99) mg/dL Calcium (8.4-10.2) mg/dL 07/11/16 07/11/16 07/11/16 Range/Units 07:23 07:30 11:36 WBC (3.8-10.6) k/uL RBC (4.30-5.90) m/uL Hgb (13.0-17.5) gm/dL Hct (39.0-53.0) % Potassium 3.4 L (3.5-5.1) mmol/L Chloride 96 L (98-107) mmol/L Carbon Dioxide 31 H (22-30) mmol/L BUN 53 H (9-20) mg/dL Glucose 129 H (74-99) mg/dL POC Glucose (mg/dL) 135 H 138 H (75-99) mg/dL Calcium 8.2 L (8.4-10.2) mg/dL Assessment and Plan Plan: #1 Chronic and ongoing severe back pain. Status post laminectomy, postoperative day #3 #2 Dyspnea, multifactorial in a patient required to lay flat in bed postoperatively along with some suspected obstructive sleep apnea, anxiety, and exacerbation of chronic obstructive pulmonary disease secondary to significant smoking history. #3 30+ one and half to 2 pack per day smoking history, quit approximately 1 month ago. #4 Diabetes mellitus. #5 Morbid obesity. Suspect obesity/hypoventilation syndrome/obstructive sleep apnea. #6 Hypertension. #7 Hyperlipidemia. #8 decubitus ulcers involving buttocks area hence ID consultation was initiated. Recommendation: Continue present course of bronchodilators, early ambulation, we 'll follow on when necessary basis. Time with Patient: Less than 30
[2016-07-11] MEDS: POTASSIUM CHLORIDE ER 20 MEQ TAB.ER PO SCH ×2 (16:35→17:39)
[2016-07-11 17:15] LABS: Glucose,Whole Blood 114 mg/dL (75-99)
[2016-07-11 20:39] LABS: Glucose,Whole Blood 189 mg/dL (75-99)
[2016-07-11] MEDS: ATORVASTATIN 40 MG TAB PO SCH (21:32)
[2016-07-11] MEDS: amLODIPine 10 MG TAB PO SCH (21:32)
[2016-07-12] MEDS: HYDROcodone/APAP 10-325MG 1 EACH TAB PO PRN ×6 (00:51→21:59)
[2016-07-12] MEDS: CYCLOBENZAPRINE 10 MG TAB PO PRN ×2 (07:15→16:30)
[2016-07-12 07:37] LABS: Glucose,Whole Blood 124 mg/dL (75-99)
[2016-07-12] MEDS: LACTATED RINGERS 1,000 ML IV SCH ×2 (08:10→22:00)
[2016-07-12] MEDS: PANTOPRAZOLE 40 MG TABLET PO SCH (08:33)
[2016-07-12] MEDS: ceFAZolin 3 GM in SODIUM CHLORIDE 0.9% 100 ML IVPB SCH ×2 (08:33→22:00)
[2016-07-12] MEDS: ALLOPURINOL 300 MG TAB PO SCH (08:33)
[2016-07-12] MEDS: LISINOPRIL 20 MG TAB PO SCH (08:33)
[2016-07-12] MEDS: HYDROCHLOROTHIAZIDE 25 MG TAB PO SCH ×2 (08:33→21:59)
[2016-07-12] MEDS: metFORMIN 500 MG TAB PO SCH ×2 (08:33→22:00)
[2016-07-12] MEDS: DOCUSATE 100 MG CAP PO SCH ×2 (08:33→22:00)
[2016-07-12] MEDS: BUDESONIDE 1 MG/2 ML NEBU INHALATION SCH ×2 (08:45→21:09)
[2016-07-12] MEDS: IPRATROPIUM-ALBUTEROL 3 ML NEB INHALATION SCH ×4 (08:45→21:09)
--- NOTE | 2016-07-12 08:52 | P.DS ---
Providers Date of admission: 07/06/16 07:16 Expected date of discharge: 07/12/16 Attending physician: Vanessa Gonzales Consults: 07/06/16 14:56 Consult Physician Routine Consulting Provider: Buster Dias Consult Reason/Comments: Medical management Do you want consulting provider notified?: Yes 07/08/16 16:45 Consult Physician Routine Consulting Provider: Giuliana Durbin Consult Reason/Comments: consult fell off Do you want consulting provider notified?: Yes 07/11/16 14:48 Consult Physician Routine Consulting Provider: Juaquin Dominguez Consult Reason/Comments: decubs butttocks Do you want consulting provider notified?: Yes, Notify in am Primary care physician: Buster Dias - Discharge Diagnosis(es) (1) Fusion of lumbar spine Current Visit: Yes Status: Acute (2) Lumbar pain Current Visit: Yes Status: Acute (3) Lumbar spinal stenosis Current Visit: Yes Status: Acute (4) Lumbar facet arthropathy Current Visit: Yes Status: Acute (5) Radiculopathy with lower extremity symptoms Current Visit: Yes Status: Acute (6) Wound, open, buttock Current Visit: Yes Status: Acute (7) COPD (chronic obstructive pulmonary disease) Current Visit: Yes Status: Acute (8) Degenerative scoliosis Current Visit: Yes Status: Acute Priority: Medium Hospital Course: This is a pleasant 55-year-old male who presented with degenerative scoliosis, asymmetric degenerative disc disease, L2-3, L3-4, L4-5, L5-S1 severe spinal canal stenosis and facet arthrosis, low back pain, and lower extremity radiculopathy who failed outpatient conservative therapy. He was admitted for a posterior lateral decompression and fusion L2-S1. He sustained a small 1 mm durotomy during surgical intervention. He remained lying flat in bed for approximately 44 hours. At that time he was able to sit up at the bedside at 30 and did not experience any spinal headaches. He was able to sit upright and increase ambulation without spinal headaches. He denies any headaches during this admission. Postsurgically, patient had significant difficulty with increased mobility and ambulation over the first several days. Over the past couple days he's been able to ambulate hallways and stand at the bedside significantly easier than he was previously. He has been working with physical therapy to increase mobility. He was able to take a shower without difficulty. He was also having some difficulty with breathing postsurgically and is known have COPD. He continues to be seen and examined by Dr. Mcmillan. His pulmonary status has continued to improve and has been stable without difficulty. He's been able to increase his food intake without difficulty. He has not had a bowel movement since admission but continues to have gas and has active bowel sounds. He is not currently experiencing any abdominal pain. He's been urinating without difficulty. Since being seen and examined yesterday, his [employer] has been discontinued and he has been able to refrain from Dilaudid IV push. His pain has been well-controlled with Herndon 10 mg/325 mg and Flexeril 10 mg. He does continue to have some drainage from a very small opening at the superior aspect of the incision. Dressing was removed at the bedside today. Steri-Strips were placed over the small opening at the superior portion of the incision and new nonstick Telfa and Tegaderm was placed over the incision site. Hemovac drain will remain intact until time of discharge. He also continues to be treated for a left buttock wound/ulceration that started approximately [address] Mcmillan's recommendation, patient will be seen and examined by Dr. Dominguez in infectious disease. Once patient is cleared by Dr. Dominguez, Dr. Mcmillan, and Dr. Dias, patient will be clear for discharge to rehab. Patient feels he is ready for discharge today. He is planning to be discharged to [facility]. Condition on day of discharge stable. While at rehab, they will continue with daily dressing changes of the lumbar incision site and left buttock wound as needed. Patient was cleared preoperatively for surgery by Dr. Dias. Patient currently denies any nausea, vomiting, fever, or chills. Patient is eating and voiding freely without difficulty. Patient may shower Tegaderm dressing intact. Patient may remove Tegaderm dressing in 3 days and shower without a dressing at that time. Patient should keep Steri- Strips intact and allow them to fall off naturally. Patient should refrain from driving until at least after their first follow-up appointment in the office. Patient should avoid excessive bending, lifting, and twisting; no lifting greater than 10 pounds. Patient will be given a prescription for Herndon 10 mg #25 mg and Flexeril 10 mg at discharge. He should avoid anti- inflammatories over the next 6 weeks postsurgically. He may resume all previous home medications as prescribed except for Mobic. Physical Exam on day of discharge: Status post surgical day number 6 Patient is awake, alert, and oriented 3 Vital signs stable Good chest excursion with deep inspiration and expiration Abdomen nontender with palpation; upper abdomen firm with some distention Dorsiflexion, plantarflexion, and extensor hallucis longus positive sustained bilaterally No signs or symptoms of DVT; no calf pain; pneumatic cuffs not currently intact bilateral lower extremities Dressing is removed during physical examination; Small drainage with palpation from the incision site at the very superior portion of the incision; Rest of the lumbar fusion incision appears clean, dry, and intact Hemovac drain remains secure Nonstick Telfa and Tegaderm applied over the lumbar incision site Evidence of superficial skin wound over the left buttock measuring approximately 6 cm in width in 4 mm in height with no active drainage; area is erythematous with no obvious sign of infection Buttock wound is currently covered appropriately Neurovascularly intact bilaterally lower extremities Assessment: Posterior lateral decompression and fusion L2-S1 Incidental 1 mm durotomy Lumbar pain Left buttock wound COPD Degenerative scoliosis Asymmetric degenerative disc disease L2-3, L3-4, L4-5, L5-S1 severe spinal canal stenosis Lumbar facet arthrosis Lower extremity radiculopathy Procedures: Posterior lateral decompression and fusion L2-S1 Patient Condition at Discharge: Stable Plan - Discharge Summary New Discharge Prescriptions: Cyclobenzaprine [Flexeril] 10 mg PO TID PRN #90 tab PRN Reason: Muscle Spasm HYDROcodone/APAP 10-325MG [Herndon 10] 1 each PO Q4H PRN #90 tab PRN Reason: Pain Discharge Medication List Enalapril/Hydrochlorothiazide [Vaseretic 10-25 mg] 1 tab PO BID 11/11/13 [ History] metFORMIN HCL [Glucophage] 500 mg PO BID 11/11/13 [History] Allopurinol [Zyloprim] 300 mg PO DAILY 02/03/14 [History] amLODIPine/ATORVASTATIN [Caduet 10 mg-40 mg Tablet] 1 tab PO HS 02/03/14 [ History] Cyclobenzaprine [Flexeril] 10 mg PO TID PRN #90 tab 07/12/16 [Rx] HYDROcodone/APAP 10-325MG [Herndon 10] 1 each PO Q4H PRN #90 tab 07/12/16 [Rx] Follow up Appointment(s)/Referral(s): Piyush Plasencia, MAMTA [PHYSICIAN REHEATER] - 2 Weeks (Patient may follow-up with Piyush Plasencia PA-C or Dr. Pavan Gonzales at [facility] in 2-3 weeks following discharge. ) Activity/Diet/Wound Care/Special Instructions: 1. Patient may shower Tegaderm dressing intact. 2. Patient may remove Tegaderm dressing in 3 days and shower without a dressing at that time. 3. Patient should keep Steri-Strips intact and allow them to fall off naturally. 4. Continue with daily dressing changes of her left buttock wound and lumbar incision site 5. Keep Hemovac drain intact until discharge; discontinue prior to discharge to rehabilitation 6. Patient should refrain from driving until at least after their first follow- up appointment in the office. 7. Patient should avoid excessive bending, twisting, and lifting; no lifting greater than 10 pounds 8. Do not soak in tub Discharge Disposition: TRANSFER TO SNF/ECF
--- NOTE | 2016-07-12 09:14 | P.CONS ---
History of Present Illness - Reason for Consult Consult date: 07/12/16 Wounds buttocks - History of Present Illness This is a 55-year-old male who was admitted on July 06 and underwent a posterior lateral decompression and fusion of the lumbar spine due to degenerative scoliosis, asymmetrical degenerative disc disease and severe spinal stenosis. There was a noted 1 mm dural tear. The following day, patient did have abdominal pain and distention. CAT scan of the abdomen and pelvis on July 07 showed no acute process. Patient was complaining of lower rib pain due to surgical positioning and labored breathing. Chest x-ray showed no acute process on July 08. Patient has been followed by pulmonary medicine for COPD and questionable obstructive sleep apnea and have now signed off the case and following as needed basis. Patient has developed a wound to the left buttocks that appeared on the day following surgery according to his . There is also small blisters on the right buttocks which are new. Patient is complaining of low back pain and is currently on oral pain medications. He states his abdominal pain has resolved as well as the lower rib pain is improved. His breathing is stable. He does have chronic shortness of breath. He has ambulated to the bathroom and in the hallway with a walker. He is scheduled for discharge to [facility] today. Patient was on Kefzol from July 06 through the and this was resumed on July 10 to present. He has been afebrile. White count is currently 11.2. Hemovac is in place to the lumbar wound. His appetite was decreased immediately after surgery but is back to normal at this time. He has not had a bowel movement since admission. He is voiding without difficulty. Patient does have diabetes mellitus type 2 and hemoglobin A1c is 6.4. Only cultures available are nasal swab positive for staph aureus not MRSA. Review of Systems All systems: negative Constitutional: Denies chills, Denies fever Eyes: denies blurred vision, denies pain Ears, nose, mouth and throat: Denies headache, Denies sore throat Cardiovascular: Reports leg edema, Reports shortness of breath, Denies chest pain, Denies lightheadedness, Denies syncope Respiratory: Denies cough, Denies cough with sputum, Denies excessive sputum, Denies hemoptysis, Denies home oxygen Gastrointestinal: Denies abdominal pain, Denies diarrhea, Denies loss of appetite, Denies nausea, Denies vomiting Musculoskeletal: Reports low back pain, Denies myalgias Integumentary: Reports wounds, Denies pruritus, Denies rash Neurological: Denies numbness, Denies weakness Psychiatric: Denies anxiety, Denies depression Endocrine: Denies fatigue, Denies weight change Past Medical History Past Medical History: Diabetes Mellitus, Hyperlipidemia, Hypertension, Osteoarthritis (OA) Additional Past Medical History / Comment(s): neuropathy History of Any Multi-Drug Resistant Organisms: None Reported Past Surgical History: Joint Replacement, Orthopedic Surgery, Tonsillectomy Additional Past Surgical History / Comment(s): right hip replaced, left shoulder surg., right foot surg, posterior lateral decompression and fusion lumbar spine. Past Anesthesia/Blood Transfusion Reactions: No Reported Reaction Past Psychological History: No Psychological Hx Reported Smoking Status: Former smoker Past Alcohol Use History: None Reported Additional Past Alcohol Use History / Comment(s): QUIT SMOKING MAY 2016. He was a smoker one pack per day for greater than 30 years. He lives at home with his in a couple dogs. He is currently on disability due to his back problems. He served in the [employer] and 1. was in [employer]. He has had significant hearing loss due to his [employer] service. Past Drug Use History: None Reported - Past Family History Mother Family Medical History: No Reported History Medications and Allergies Home Medications Medication Instructions Recorded Confirmed Type Enalapril/Hydrochlorothiazide 1 tab PO BID 11/11/13 07/06/16 History [Vaseretic 10-25 mg] metFORMIN HCL [Glucophage] 500 mg PO BID 11/11/13 07/06/16 History Allopurinol [Zyloprim] 300 mg PO DAILY 02/03/14 07/06/16 History amLODIPine/ATORVASTATIN [Caduet 10 1 tab PO HS 02/03/14 07/06/16 History mg-40 mg Tablet] Allergies Allergy/AdvReac Type Severity Reaction Status Date / Time No Known Allergies Allergy Verified 07/04/16 09:51 Physical Exam Vitals: Vital Signs Temp Pulse Pulse Pulse Resp BP Pulse Ox 07/12/16 07:00 97.3 F L 77 20 105/50 94 L 07/12/16 00:00 84 17 07/11/16 22:54 98.9 F 84 17 128/61 95 07/11/16 21:04 94 05/22/17 20:49 94 07/11/16 17:27 94 07/11/16 17:12 94 07/11/16 15:00 98 F 93 20 132/63 95 07/11/16 12:07 88 Intake and Output 07/11/16 07/12/16 07/12/16 22:59 06:59 14:59 Intake Total 500 400 Output Total 830 1305 Balance -330 -905 Intake: Intake, IV Titration 100 Amount ceFAZolin 3 gm In Sodium 100 Chloride 0.9% 100 ml @ 100 mls/hr IVPB Q12HR [facility] Rx#:[id number] Oral 400 400 Output: Drainage 30 55 Right Lower Back 30 55 Urine 800 1250 Other: Voiding Method Toilet Toilet Urinal Urinal # Voids 3 2 Gen: This is a morbidly obese 55-year-old male. He is seen sitting in a chair and has noted difficulty getting to a standing position. HEENT: Head is atraumatic, normocephalic. Pupils equal, round. Sclerae is anicteric. Conjunctiva pink. Because members of the mouth are moist. No thrush noted. Dentition is in poor order. NECK: Supple. No JVD. No lymphadenopathy. No thyromegaly. LUNGS: Clear to auscultation. No wheezes or rhonchi. No intercostal retractions. HEART: Regular rate and rhythm. No murmur. ABDOMEN: Distended. Bowel sounds are present. No masses. No tenderness. BACK: Dressing is in place to the lumbar area with blood saturation. Hemovac in place with drainage of sanguinous material. EXTREMITIES: +1 pedal edema. No calf tenderness. There is a shearing type wound to the left buttocks and vesicles noted on the right buttocks which does not appear to be purulent. NEUROLOGICAL: Patient is awake, alert and oriented x3. Cranial nerves 2 through 12 are grossly intact. Results Results: Laboratory Results WBC 11.2 k/uL (3.8-10.6) H 07/11/16 07:23 RBC 2.76 m/uL (4.30-5.90) L 07/11/16 07:23 Hgb 8.9 gm/dL (13.0-17.5) L 07/11/16 07:23 Hct 26.4 % (39.0-53.0) L 07/11/16 07:23 MCV 95.6 fL (80.0-100.0) 07/11/16 07:23 MCH 32.4 pg (25.0-35.0) 07/11/16 07:23 MCHC 33.9 g/dL (31.0-37.0) 07/11/16 07:23 RDW 13.5 % (11.5-15.5) 07/11/16 07:23 Plt Count 237 k/uL (150-450) 07/11/16 07:23 Neutrophils % 82 % 07/09/16 07:47 Lymphocytes % 7 % 07/09/16 07:47 Monocytes % 8 % 07/09/16 07:47 Eosinophils % 0 % 07/09/16 07:47 Basophils % 0 % 07/09/16 07:47 Neutrophils # 9.9 k/uL (1.3-7.7) H 07/09/16 07:47 Lymphocytes # 0.8 k/uL (1.0-4.8) L 07/09/16 07:47 Monocytes # 1.0 k/uL (0-1.0) 07/09/16 07:47 Eosinophils # 0.0 k/uL (0-0.7) 07/09/16 07:47 Basophils # 0.0 k/uL (0-0.2) 07/09/16 07:47 Sodium 137 mmol/L (137-145) 07/11/16 07:23 Potassium 3.4 mmol/L (3.5-5.1) L 07/11/16 07:23 Chloride 96 mmol/L (98-107) L 07/11/16 07:23 Carbon Dioxide 31 mmol/L (22-30) H 07/11/16 07:23 Anion Gap 10 mmol/L 07/11/16 07:23 BUN 53 mg/dL (9-20) H 07/11/16 07:23 Creatinine 1.21 mg/dL (0.66-1.25) 07/11/16 07:23 Est GFR (MDRD) Af Amer >60 (>60 ml/min/1.73 sqM) 07/11/16 07:23 Est GFR (MDRD) Non-Af >60 (>60 ml/min/1.73 sqM) 07/11/16 07:23 Glucose 129 mg/dL (74-99) H 07/11/16 07:23 POC Glucose (mg/dL) 124 mg/dL (75-99) H 07/12/16 07:33 POC Glu Shaping Machine Operator ID Sujatha Baker 07/12/16 07:[address] Glu mg/dL 137 mg/dL 07/08/16 08:12 Hemoglobin A1c 6.4 % (4.2-6.1) H 07/08/16 08:12 Plasma Lactic Acid Pedrito 1.1 mmol/L (0.7-2.0) 07/07/16 22:25 Calcium 8.2 mg/dL (8.4-10.2) L 07/11/16 07:23 Total Bilirubin 0.8 mg/dL (0.2-1.3) 07/08/16 08:12 AST 171 U/L (17-59) H 07/08/16 08:12 ALT 51 U/L (21-72) 07/08/16 08:12 Alkaline Phosphatase 57 U/L (38-126) 07/08/16 08:12 Total Protein 5.9 g/dL (6.3-8.2) L 07/08/16 08:12 Albumin 3.4 g/dL (3.5-5.0) L 07/08/16 08:12 Blood Type O Positive 06/28/16 11:05 Blood Type Recheck No 06/28/16 11:05 Antibody Screen NEGATIVE 06/28/16 11:05 Spec Expiration Date 07/08/2016 06/28/16 11:05 CBC & Chem 7: 07/11/16 07:23 07/11/16 07:23 Labs: Abnormal Lab Results - Last 24 Hours (Table) 07/11/16 07/11/16 07/11/16 Range/Units 11:36 17:14 20:34 POC Glucose (mg/dL) 138 H 114 H 189 H (75-99) mg/dL 07/12/16 Range/Units 07:33 POC Glucose (mg/dL) 124 H (75-99) mg/dL Assessment and Plan Plan: This is a 55-year-old male who was initially brought into the hospital for posterior lateral decompression and fusion of the lumbar spine. Patient developed wound to the left buttocks. He is also noted to have vesicles to the right buttocks. Wound care will be addressed. Patient is scheduled for discharge to medical [facility] today. Supportive care. Further recommendations as patient progresses. The above dictated assessment and findings were discussed with Dr. Dominguez. The impression and plan of care have been directed as dictated. Ana Gomez nurse practitioner acting as scribe for Dr. Dominguez.
[2016-07-12 11:32] LABS: Glucose,Whole Blood 146 mg/dL (75-99)
[2016-07-12] MEDS: INSULIN LISPRO (humaLOG) 300 UNIT/3 ML VIAL SQ SCH ×2 (11:36→17:34)
[2016-07-12] MEDS ORDERED: BISACODYL 10 MG SUPP RECTAL STA (13:24)
--- NOTE | 2016-07-12 13:37 | P.PN ---
Subjective Interval follow-up: Patient is evaluated at bedside with family at bedside. Patient reports feeling tired. Denies chills, fevers, nausea, vomiting, shortness of breath, chest pain, or abdominal pain. Back pain controlled with current pain regimen. Patient is urinating without difficulty. Patient has been up walking in the [place]. Patient reports flatus without bowel movement. Patient is tolerating diet. Infectious disease consult was requested yesterday for wound on left buttocks, recommendations pending. Objective - Vital Signs Vital signs: Vital Signs Temp 97.3 F L 07/12/16 07:00 Pulse 94 07/12/16 08:55 Resp 20 07/12/16 08:00 BP 105/50 07/12/16 07:00 Pulse Ox 94 L 07/12/16 07:00 Intake & Output 07/11/16 07/12/16 07/12/16 18:59 06:59 18:59 Intake Total 100 900 Output Total 800 2135 Balance -700 -123 Intake: Intake, IV Titration 100 100 Amount ceFAZolin 3 gm In Sodium 100 100 Chloride 0.9% 100 ml @ 100 mls/hr IVPB Q12HR [facility] Rx#:[id number] Oral 800 Output: Drainage 85 Right Lower Back 85 Urine 800 0 Other: Voiding Method Toilet Toilet Toilet Urinal Urinal Urinal # Voids 2 - Exam GENERAL: Pt awake and alert, well-appearing, well-nourished, and in no acute distress. HEAD: Atraumatic, normocephalic. EYES: Pupils equal, round, sclera anicteric, conjunctiva are normal. ENT: Moist mucous membranes. NECK: Supple. LUNGS: Breath sounds clear to auscultation bilaterally. No wheezes, rales, or rhonchi. HEART: Heart S1, S2, no S3 or S4. Regular rate and rhythm. No murmurs, rubs or gallops. ABDOMEN: Soft, nontender, nondistended, normoactive bowel sounds. No guarding, no rebound. No masses or organomegaly appreciated. EXTREMITIES: 2+ peripheral pulses. No edema. No calf tenderness. NEUROLOGICAL: Pt oriented x 3. No focal deficits. Strength and sensation grossly intact. PSYCH: Normal mood, normal affect. SKIN: Warm, dry. Dressing to posterior back dry and intact. Hemovac compressed with sanguinous drainage. Dressing to left buttocks intact. New small blisters noted on right buttocks. - Labs CBC & Chem 7: 07/11/16 07:23 07/11/16 07:23 Labs: Abnormal Lab Results - Last 24 Hours (Table) 07/11/16 07/11/16 07/12/16 Range/Units 17:14 20:34 07:33 POC Glucose (mg/dL) 114 H 189 H 124 H (75-99) mg/dL 07/12/16 Range/Units 11:24 POC Glucose (mg/dL) 146 H (75-99) mg/dL Assessment and Plan Plan: Impression: 1. Degenerative scoliosis, degenerative disc degeneration, severe spinal stenosis L2 to S1, facet arthrosis L2 to S1, low back pain with lower extremity radiculopathy, spondylolisthesis L4 5 and lateral listhesis L3 4 status post Laminectomy and decompression with wide bilateral foraminotomies and partial facetectomy L2-3 L3 4 L4 5 and L5-S1; Posterior lateral decompression and fusion L2-3 L3 4 L4 5 and L5-S1 on 07/06/2016 2. COPD. 3. Diabetes mellitus type 2. 4. Constipation. 5. Morbid obesity. 6. Hypertension. 7. Question underlying obstructive sleep apnea. 8. Wound to left buttucks with blisters to right buttucks. Infectitious disease consult requested, recommendations pending. Please see nursing documentation for wound measurements. Plan: Continue surgical management by orthopedic service. Await recommendations from infectitious disease for wounds. Continue current medications. Will give dulcolax suppository to promote peristasis. Increase activity. Continue GI and DVT prophylaxis. From a medical standpoint, patient is cleared for discharge to subacute rehab. The above impression and plan have been discussed and directed by Dr. Dias. Jordan SPANGLER acting as scribe for Dr. Dias.
--- NOTE | 2016-07-12 14:30 | P.PN ---
Subjective Principal diagnosis: Chronic back pain This is a very pleasant 55-year-old gentleman who follows with Dr. Dias as his primary care physician. He has a history of diabetes mellitus, morbid obesity, severe hearing loss and chronic back pain. He has been having progressive pain and weakness in the lower extremities. He also has a significant smoking history and was seen and evaluated by Dr. Mcmillan in our office prior to his surgery. He has a FEV1 value of 82% of predicted and was cleared for the back surgery. He presented here on 07/06/2016 to undergo a laminectomy which was performed by Dr. Gonzales. The patient tolerated the procedure well however had been having ongoing issues with intractable pain. His medications were adjusted accordingly. We are seeing the patient today in consultation for ongoing hypoxemia. He has been laying flat in bed since his surgery. He has some clinical features of obstructive sleep apnea. He feels his shortness of breath was related to the uncontrolled pain. Presently he is awake and alert in no acute distress. He continues to utilize 4 L/m per nasal cannula to maintain O2 saturations in the 90s. He's been afebrile. He is slightly bronchospastic and wheezy. He has significant production of sputum. He did quit smoking approximately one month ago. His chest x-ray revealed no evidence of acute pulmonary process. The patient is seen again today 07/09/2016 in follow-up. He is awake and alert in no acute distress. He is sitting up in the chair at the bedside. His pain is better controlled. He denies any worsening shortness of breath at this time. He continues with the loose productive cough but the phlegm has subsided quite a bit since yesterday. He is maintaining O2 saturations in the low 90s on room air. He's been afebrile. Hemodynamically stable. He is working well with the incentive spirometer and cough and deep breathing exercises. Reevaluated on 07/11/2016, patient seems to be doing well from the pulmonary perspective, however upon physical examination, I have noted that the patient has significant ulcerations over his buttocks area, and I felt it would be worthwhile having infectious disease evaluated the patient. Pulmonary-griggs, no cough no wheezing no shortness of breath. Labs were reviewed hemoglobin is 8.9 WBC count is 11.2 BUN is elevated at 53 creatinine is 1.21, I believe the patient would benefit from hydration. She was seen again today 07/12/2016 in follow-up. Currently he is resting quite comfortably in bed. He denies any worsening shortness of breath cough or congestion. His pain is fairly well controlled. He did develop ulcerations over his buttocks and infectious disease is following. He is currently on cefazolin. He is maintaining good O2 saturations on room air. He is hemodynamically stable. Afebrile. Objective - Vital Signs Vital signs: Vital Signs Temp 97.3 F L 07/12/16 07:00 Pulse 94 07/12/16 08:55 Resp 20 07/12/16 08:00 BP 105/50 07/12/16 07:00 Pulse Ox 94 L 07/12/16 07:00 Intake & Output 07/11/16 07/12/16 07/12/16 18:59 06:59 18:59 Intake Total 100 900 0 Output Total 800 2135 Balance -700 -1235 0 Intake: Intake, IV Titration 100 100 0 Amount Lactated Ringers 1,000 ml 0 @ 75 mls/hr IV .[id number] [facility] Rx#:[id number] ceFAZolin 3 gm In Sodium 100 100 Chloride 0.9% 100 ml @ 100 mls/hr IVPB Q12HR [facility] Rx#:[id number] Oral 800 Output: Drainage 85 Right Lower Back 85 Urine 800 0 Other: Voiding Method Toilet Toilet Toilet Urinal Urinal Urinal # Voids 2 3 - Exam GENERAL EXAM: Morbidly obese. Alert, comfortable in no apparent distress. HEAD: Normocephalic. EYES: Normal reaction of pupils, equal size. NOSE: Clear with pink turbinates. THROAT: There is crowding of the posterior pharynx. Short. No erythema or exudates. NECK: No masses, no JVD. CHEST: No chest wall deformity. LUNGS: Equal air entry with faint end expiratory wheeze. Diminished. CVS: S1 and S2 normal with no audible murmurs, regular rhythm. ABDOMEN: No hepatosplenomegaly, normal bowel sounds, no guarding or rigidity. Extremities: There is trace peripheral edema. No clubbing, no cyanosis. Peripheral pulses are intact. - Labs CBC & Chem 7: 07/11/16 07:23 07/11/16 07:23 Labs: Abnormal Lab Results - Last 24 Hours (Table) 07/11/16 07/11/16 07/12/16 Range/Units 17:14 20:34 07:33 POC Glucose (mg/dL) 114 H 189 H 124 H (75-99) mg/dL 07/12/16 Range/Units 11:24 POC Glucose (mg/dL) 146 H (75-99) mg/dL Assessment and Plan Plan: Impression: #1 Chronic and ongoing severe back pain. Status post laminectomy, postoperative day #2. #2 Dyspnea, multifactorial in a patient required to lay flat in bed postoperatively along with some suspected obstructive sleep apnea, anxiety, and exacerbation of chronic obstructive pulmonary disease secondary to significant smoking history. #3 30+ one and half to 2 pack per day smoking history, quit approximately 1 month ago. #4 Diabetes mellitus. #5 Morbid obesity. Suspect obesity/hypoventilation syndrome/obstructive sleep apnea. #6 Hypertension. #7 Hyperlipidemia. #8 Skin breakdown over the buttocks. Plan: The patient was seen and evaluated by Dr. Mcmillan. He is stable from the pulmonary standpoint and could be discharged to inpatient rehabilitation once cleared medically. In the interim, We will continue with his bronchodilators and Pulmicort inhalations. He is encouraged regarding the increased use the incentive spirometer and cough and deep breathing exercises. He would benefit from an outpatient sleep study based on his clinical features of obstructive sleep apnea and according to the patient's he does have significant snoring and occasional episodes of apnea. We would also recommend cautious use of narcotics for suspected obesity/hypoventilation syndrome. We will increase his activity as tolerated. We'll continue to follow make further recommendations based on his clinical status.
[2016-07-12 17:27] LABS: Glucose,Whole Blood 113 mg/dL (75-99)
[2016-07-12 20:20] LABS: Glucose,Whole Blood 159 mg/dL (75-99)
[2016-07-12] MEDS: ATORVASTATIN 40 MG TAB PO SCH (21:59)
[2016-07-12] MEDS: amLODIPine 10 MG TAB PO SCH (22:00)
--- NOTE | 2016-07-12 22:59 | P.CON ---
Consult Note - . Consult date: 07/12/16 Assessment/Plan:: This is a 55-year-old male who was admitted on July 06 and underwent a posterior lateral decompression and fusion of the lumbar spine due to degenerative scoliosis, asymmetrical degenerative disc disease and severe spinal stenosis. There was a noted 1 mm dural tear. The following day, patient did have abdominal pain and distention. CAT scan of the abdomen and pelvis on July 07 showed no acute process. Patient was complaining of lower rib pain due to surgical positioning and labored breathing. Chest x-ray showed no acute process on July 08. Patient has been followed by pulmonary medicine for COPD and questionable obstructive sleep apnea and have now signed off the case and following as needed basis. Patient has developed a wound to the left buttocks that appeared on the day following surgery according to his . There is also small blisters on the right buttocks which are new. Patient is complaining of low back pain and is currently on oral pain medications. He states his abdominal pain has resolved as well as the lower rib pain is improved. His breathing is stable. He does have chronic shortness of breath. He has ambulated to the bathroom and in the hallway with a walker. He is scheduled for discharge to [facility] today. Patient was on Kefzol from July 06 through the and this was resumed on July 10 to present. He has been afebrile. White count is currently 11.2. Hemovac is in place to the lumbar wound. His appetite was decreased immediately after surgery but is back to normal at this time. He has not had a bowel movement since admission. He is voiding without difficulty. Patient does have diabetes mellitus type 2 and hemoglobin A1c is 6.4. Only cultures available are nasal swab positive for staph aureus not MRSA.Please see the consult note is dictated by nurse practitioner Hubert Ana Gomez. Pleasant gentleman has developed a significant tissue injury to the left buttocks with blistering. The blister is now opened and drained and is slightly tender. There are a few vesicles also onto the right buttocks which are minimal. The family is present in the etiology of this difficulty is noted. He has obese. He was somewhat bedbound because of his back surgery. Is likely with pressure ensure forces is developed the blistering and tissue injury. For treatment of the hydrocollator be applied. Air cushion for his seat. Zinc products can be applied as needed for comfort. The site is not grossly infected and does not require intravenous antibiotic therapy. The patient is being evaluated by the surgeon and once drainage improves will be discharged home. I agree with evaluation, assessment and plan as Dictated by nurse practitioner Mrs. Ana Gomez.
[2016-07-13] MEDS: CYCLOBENZAPRINE 10 MG TAB PO PRN ×2 (01:29→16:29)
[2016-07-13] MEDS: HYDROcodone/APAP 10-325MG 1 EACH TAB PO PRN ×4 (04:00→21:32)
[2016-07-13 07:33] LABS: Glucose,Whole Blood 113 mg/dL (75-99)
[2016-07-13] MEDS: HYDROmorphone 1 MG/ML 1 ML SYRINGE IVP PRN ×6 (08:05→21:33)
[2016-07-13] MEDS: ceFAZolin 3 GM in SODIUM CHLORIDE 0.9% 100 ML IVPB SCH ×2 (08:06→21:32)
[2016-07-13] MEDS: INSULIN LISPRO (humaLOG) 300 UNIT/3 ML VIAL SQ SCH ×3 (08:06→18:27)
[2016-07-13] MEDS: HYDROCHLOROTHIAZIDE 25 MG TAB PO SCH ×2 (08:11→21:31)
[2016-07-13] MEDS: metFORMIN 500 MG TAB PO SCH ×2 (08:11→21:31)
[2016-07-13] MEDS: PANTOPRAZOLE 40 MG TABLET PO SCH (08:11)
[2016-07-13] MEDS: ALLOPURINOL 300 MG TAB PO SCH (08:11)
[2016-07-13] MEDS: DOCUSATE 100 MG CAP PO SCH ×2 (08:11→21:31)
[2016-07-13] MEDS: LISINOPRIL 20 MG TAB PO SCH (08:12)
[2016-07-13] MEDS: IPRATROPIUM-ALBUTEROL 3 ML NEB INHALATION SCH ×4 (08:35→19:21)
[2016-07-13] MEDS: BUDESONIDE 1 MG/2 ML NEBU INHALATION SCH ×2 (08:35→19:21)
[2016-07-13] MEDS: LACTATED RINGERS 1,000 ML IV SCH ×2 (11:31→23:50)
[2016-07-13 13:08] LABS: Glucose,Whole Blood 92 mg/dL (75-99)
--- NOTE | 2016-07-13 13:32 | P.PN ---
Subjective Interval follow-up: Patient is evaluated at bedside. Patient is complaining of itching to posterior upper back. Denies chills, fevers, nausea, vomiting, shortness of breath, chest pain, or abdominal pain. Back pain controlled with current pain regimen. Patient is urinating without difficulty. Patient has been up walking in the [place]. Patient had a bowel movement last night. Patient is tolerating diet. Objective - Vital Signs Vital signs: Vital Signs Temp 98.2 F 07/13/16 07:00 Pulse 94 07/13/16 08:50 Resp 20 07/13/16 08:00 BP 106/50 07/13/16 07:00 Pulse Ox 95 07/13/16 07:00 Intake & Output 07/12/16 07/13/16 07/13/16 18:59 06:59 18:59 Intake Total 0 1300 Balance 0 1300 Intake: Intake, IV Titration 0 100 Amount Lactated Ringers 1,000 ml 0 @ 75 mls/hr IV .[id number] [facility] Rx#:[id number] ceFAZolin 3 gm In Sodium 100 Chloride 0.9% 100 ml @ 100 mls/hr IVPB Q12HR [facility] Rx#:[id number] Oral 1200 Other: Voiding Method Toilet Toilet Toilet Urinal # Voids 3 2 1 # Bowel Movements 1 - Exam GENERAL: Pt awake and alert, well-appearing, well-nourished, and in no acute distress. HEAD: Atraumatic, normocephalic. EYES: Pupils equal, round, sclera anicteric, conjunctiva are normal. ENT: Moist mucous membranes. NECK: Supple. LUNGS: Breath sounds diminished to auscultation bilaterally. No wheezes, rales , or rhonchi. HEART: Heart S1, S2, no S3 or S4. Regular rate and rhythm. No murmurs, rubs or gallops. ABDOMEN: Soft, nontender, nondistended, normoactive bowel sounds. No guarding, no rebound. No masses or organomegaly appreciated. EXTREMITIES: 2+ peripheral pulses. No edema. No calf tenderness. NEUROLOGICAL: Pt oriented x 3. No focal deficits. Strength and sensation grossly intact. PSYCH: Normal mood, normal affect. SKIN: Warm, dry. Dressing to posterior back with serosanguineous drainage. Hemovac compressed with sanguinous drainage. Dressing to left buttocks intact. New small blisters noted on right buttocks. Papular, erythematous, pruritic rash noted to posterior left upper back. - Labs CBC & Chem 7: 07/11/16 07:23 07/11/16 07:23 Labs: Abnormal Lab Results - Last 24 Hours (Table) 07/12/16 07/12/16 07/13/16 Range/Units 17:05 20:19 07:23 POC Glucose (mg/dL) 113 H 159 H 113 H (75-99) mg/dL Assessment and Plan Plan: Impression: 1. Degenerative scoliosis, degenerative disc degeneration, severe spinal stenosis L2 to S1, facet arthrosis L2 to S1, low back pain with lower extremity radiculopathy, spondylolisthesis L4 5 and lateral listhesis L3 4 status post Laminectomy and decompression with wide bilateral foraminotomies and partial facetectomy L2-3 L3 4 L4 5 and L5-S1; Posterior lateral decompression and fusion L2-3 L3 4 L4 5 and L5-S1 on 07/06/2016 2. COPD. 3. Diabetes mellitus type 2. 4. Constipation, resolved. 5. Morbid obesity. 6. Hypertension. 7. Question underlying obstructive sleep apnea. 8. Wound to left buttucks with blisters to right buttucks. Infectitious disease consult requested, recommendations noted. Please see nursing documentation for wound measurements. 9. Rash to posterior upper right back. Did speak with Ana nurse practitioner for Dr. Dominguez concerning rash, recommendations pending. Plan: Continue surgical management by orthopedic service. Await recommendations from infectitious disease for wounds and rash. Continue current medications. Increase activity. Continue GI and DVT prophylaxis. From a medical standpoint , patient is cleared for discharge to subacute rehab. The above impression and plan have been discussed and directed by Dr. Dias. Jordan SPANGLER acting as scribe for Dr. Dias.
--- NOTE | 2016-07-13 13:55 | P.PN ---
Progress Note - Text Orthopedic Spine Patient is a pleasant 55-year-old male who is seen and examined at the bedside following posterior lateral decompression and fusion performed last 07/06/2016. His discharge was held yesterday after continuous drainage from the superior portion of his surgical incision. He is also being treated for a left buttock wound. Since being seen and examined yesterday, the patient states he has had some improvement. He is having less drainage from his incision site. He has been seen and examined by infectious disease for his left buttock wound. Nursing states infectious disease has cleared him for discharge. Patient has been able to increase ambulation. He was able to have a bowel movement last night. He continues to eat and void without significant difficulty. He continues to have ongoing low back pain at the surgical site and states his pain has been controlled with [place]. He is not currently receiving any IV narcotic pain medication. Currently does not complain of nausea, vomiting, fever, or chills. Patient states pain has been adequately controlled. He has no new complaints this morning. Physical Exam Lumbar Fusion: Status post surgical day number 7 Patient is awake, alert, and oriented 3 Vital signs stable Good chest excursion with deep inspiration and expiration Abdomen nontender with palpation Dorsiflexion, plantarflexion, and extensor hallucis longus positive sustained bilaterally No signs or symptoms of DVT; no calf pain; pneumatic cuffs not currently intact bilateral lower extremities Dressing remains intact during physical examination; some evidence of some serosanguineous drainage from the superior portion of the incision. The rest of the dressing remains clean, dry, and intact Hemovac drain remains secure Nonstick Telfa and Tegaderm applied over the lumbar incision site Evidence of superficial skin wound over the left buttock measuring approximately 6 cm in width in 4 mm in height with no active drainage; area is erythematous with no obvious sign of infection Buttock wound is currently covered appropriately Neurovascularly intact bilaterally lower extremities Assessment: Posterior lateral decompression and fusion L2-S1 Incidental 1 mm durotomy Lumbar pain Left buttock wound COPD Degenerative scoliosis Asymmetric degenerative disc disease L2-3, L3-4, L4-5, L5-S1 severe spinal canal stenosis Lumbar facet arthrosis Lower extremity radiculopathy Plan: 1. Ambulate as tolerated; work with Physical Therapy to increase mobilization 2. Continue pain control oral medications 3. Telfa and Tegaderm was seen to remain intact over lumbar incision; Hemovac drain to remain intact until discharge; continue with dressing changes with nonstick Telfa and Tegaderm as needed; dressing to continue to remain remain intact over the left buttock wound; We will plan for daily dressing changes while at rehab. 4. Dr. Mcmillan in pulmonology to continue following the patient 5. Medical management will continue to manage patient for patient's other medical issues 6. We will continue to follow the patient closely; if the patient continues to improve and his pain is well controlled, we will plan for discharge to [facility], 07/14/2016 7. Patient can follow-up with Piyush Plasencia PA-C or Dr. Pavan Gonzales at [facility] in 2-3 weeks following discharge
[2016-07-13 17:18] LABS: Glucose,Whole Blood 116 mg/dL (75-99)
[2016-07-13 20:40] LABS: Glucose,Whole Blood 153 mg/dL (75-99)
[2016-07-13] MEDS: IPRATROPIUM-ALBUTEROL 3 ML NEB INHALATION PRN (21:16)
[2016-07-13] MEDS: amLODIPine 10 MG TAB PO SCH (21:31)
[2016-07-13] MEDS: ATORVASTATIN 40 MG TAB PO SCH (21:32)
--- NOTE | 2016-07-13 22:07 | P.PN ---
Subjective Principal diagnosis: Pressure ulcer left buttocks stage III This is a 55-year-old male who was admitted on July 06 and underwent a posterior lateral decompression and fusion of the lumbar spine due to degenerative scoliosis, asymmetrical degenerative disc disease and severe spinal stenosis. There was a noted 1 mm dural tear. The following day, patient did have abdominal pain and distention. CAT scan of the abdomen and pelvis on July 07 showed no acute process. Patient was complaining of lower rib pain due to surgical positioning and labored breathing. Chest x-ray showed no acute process on July 08. Patient has been followed by pulmonary medicine for COPD and questionable obstructive sleep apnea and have now signed off the case and following as needed basis. Patient has developed a wound to the left buttocks that appeared on the day following surgery according to his . There is also small blisters on the right buttocks which are new. Patient is complaining of low back pain and is currently on oral pain medications. He states his abdominal pain has resolved as well as the lower rib pain is improved. His breathing is stable. He does have chronic shortness of breath. He has ambulated to the bathroom and in the hallway with a walker. He is scheduled for discharge to [facility] today. Patient was on Kefzol from July 06 through the and this was resumed on July 10 to present. He has been afebrile. White count is currently 11.2. Hemovac is in place to the lumbar wound. His appetite was decreased immediately after surgery but is back to normal at this time. He has not had a bowel movement since admission. He is voiding without difficulty. Patient does have diabetes mellitus type 2 and hemoglobin A1c is 6.4. Only cultures available are nasal swab positive for staph aureus not MRSA. Still having drainage from his surgical site and was not transferred to extended care today. Less uncomfortable today. Objective - Vital Signs Vital signs: Vital Signs Temp 98.8 F 07/13/16 15:00 Pulse 88 07/13/16 21:26 Resp 20 07/13/16 16:00 BP 127/64 07/13/16 15:00 Pulse Ox 95 07/13/16 15:00 Intake & Output 07/13/16 07/13/16 07/14/16 06:59 18:59 06:59 Intake Total 1300 580 Output Total 30 Balance 1300 580 -30 Weight 149.685 kg Intake: Intake, IV Titration 100 100 Amount ceFAZolin 3 gm In Sodium 100 100 Chloride 0.9% 100 ml @ 100 mls/hr IVPB Q12HR [facility] Rx#:[id number] Oral 1200 480 Output: Drainage 30 Right Lower Back 30 Other: Voiding Method Toilet Toilet Toilet # Voids 2 4 # Bowel Movements 1 1 - Exam Gen: This is a morbidly obese 55-year-old male. He is seen sitting in a chair and has noted difficulty getting to a standing position. HEENT: Head is atraumatic, normocephalic. Pupils equal, round. Sclerae is anicteric. Conjunctiva pink. Because members of the mouth are moist. No thrush noted. Dentition is in poor order. NECK: Supple. No JVD. No lymphadenopathy. No thyromegaly. LUNGS: Clear to auscultation. No wheezes or rhonchi. No intercostal retractions. HEART: Regular rate and rhythm. No murmur. ABDOMEN: Distended. Bowel sounds are present. No masses. No tenderness. BACK: Dressing is in place to the lumbar area with blood saturation. Hemovac in place with drainage of sanguinous material. EXTREMITIES: +1 pedal edema. No calf tenderness. The stage III ulcer left buttocks is clean with erythematous space no purulence no surrounding erythema. Small blisters to the right are stable. NEUROLOGICAL: Patient is awake, alert and oriented x3. - Labs CBC & Chem 7: 07/11/16 07:23 07/11/16 07:23 Labs: Abnormal Lab Results - Last 24 Hours (Table) 07/13/16 07/13/16 07/13/16 Range/Units 07:23 17:16 20:39 POC Glucose (mg/dL) 113 H 116 H 153 H (75-99) mg/dL Laboratory Results WBC 11.2 k/uL (3.8-10.6) H 07/11/16 07:23 RBC 2.76 m/uL (4.30-5.90) L 07/11/16 07:23 Hgb 8.9 gm/dL (13.0-17.5) L 07/11/16 07:23 Hct 26.4 % (39.0-53.0) L 07/11/16 07:23 MCV 95.6 fL (80.0-100.0) 07/11/16 07:23 MCH 32.4 pg (25.0-35.0) 07/11/16 07:23 MCHC 33.9 g/dL (31.0-37.0) 07/11/16 07:23 RDW 13.5 % (11.5-15.5) 07/11/16 07:23 Plt Count 237 k/uL (150-450) 07/11/16 07:23 Neutrophils % 82 % 07/09/16 07:47 Lymphocytes % 7 % 07/09/16 07:47 Monocytes % 8 % 07/09/16 07:47 Eosinophils % 0 % 07/09/16 07:47 Basophils % 0 % 07/09/16 07:47 Neutrophils # 9.9 k/uL (1.3-7.7) H 07/09/16 07:47 Lymphocytes # 0.8 k/uL (1.0-4.8) L 07/09/16 07:47 Monocytes # 1.0 k/uL (0-1.0) 07/09/16 07:47 Eosinophils # 0.0 k/uL (0-0.7) 07/09/16 07:47 Basophils # 0.0 k/uL (0-0.2) 07/09/16 07:47 Sodium 137 mmol/L (137-145) 07/11/16 07:23 Potassium 3.4 mmol/L (3.5-5.1) L 07/11/16 07:23 Chloride 96 mmol/L (98-107) L 07/11/16 07:23 Carbon Dioxide 31 mmol/L (22-30) H 07/11/16 07:23 Anion Gap 10 mmol/L 07/11/16 07:23 BUN 53 mg/dL (9-20) H 07/11/16 07:23 Creatinine 1.21 mg/dL (0.66-1.25) 07/11/16 07:23 Est GFR (MDRD) Af Amer >60 (>60 ml/min/1.73 sqM) 07/11/16 07:23 Est GFR (MDRD) Non-Af >60 (>60 ml/min/1.73 sqM) 07/11/16 07:23 Glucose 129 mg/dL (74-99) H 07/11/16 07:23 POC Glucose (mg/dL) 153 mg/dL (75-99) H 07/13/16 20:39 POC Glu Spanish Speaking Nanny ID Verónica Acosta 07/13/16 20:[address] Glu mg/dL 137 mg/dL 07/08/16 08:12 Hemoglobin A1c 6.4 % (4.2-6.1) H 07/08/16 08:12 Plasma Lactic Acid Pedrito 1.1 mmol/L (0.7-2.0) 07/07/16 22:25 Calcium 8.2 mg/dL (8.4-10.2) L 07/11/16 07:23 Total Bilirubin 0.8 mg/dL (0.2-1.3) 07/08/16 08:12 AST 171 U/L (17-59) H 07/08/16 08:12 ALT 51 U/L (21-72) 07/08/16 08:12 Alkaline Phosphatase 57 U/L (38-126) 07/08/16 08:12 Total Protein 5.9 g/dL (6.3-8.2) L 07/08/16 08:12 Albumin 3.4 g/dL (3.5-5.0) L 07/08/16 08:12 Blood Type O Positive 06/28/16 11:05 Blood Type Recheck No 06/28/16 11:05 Antibody Screen NEGATIVE 06/28/16 11:05 Spec Expiration Date 07/08/2016 06/28/16 11:05 Assessment and Plan (1) Pressure ulcer of buttock Narrative/Plan: 55-year-old male with history of multiple medical troubles he has severe back pain and underwent lumbar laminectomy. Is doing well but now developed a pressure ulceration to his left buttocks. Few vesicles on the right buttocks also. Improved today. Less drainage today but the hydrocolloid dressings are not staying in place because he observed her dressings are being utilized instead. When he sitting upright utilize the air cushion. Once the drainage from his surgical wound is improved she'll transfer to extended care for ongoing wound care and monitor for infection. It is tenderness of infection Status: Acute
[2016-07-14] MEDS: HYDROcodone/APAP 10-325MG 1 EACH TAB PO PRN ×4 (01:25→20:53)
[2016-07-14] MEDS: CYCLOBENZAPRINE 10 MG TAB PO PRN ×3 (01:40→17:54)
[2016-07-14] MEDS: HYDROmorphone 1 MG/ML 1 ML SYRINGE IVP PRN ×5 (06:08→17:54)
[2016-07-14] MEDS: metFORMIN 500 MG TAB PO SCH ×2 (07:39→20:53)
[2016-07-14] MEDS: LISINOPRIL 20 MG TAB PO SCH (07:39)
[2016-07-14] MEDS: ALLOPURINOL 300 MG TAB PO SCH (07:39)
[2016-07-14] MEDS: DOCUSATE 100 MG CAP PO SCH ×2 (07:39→20:52)
[2016-07-14] MEDS: HYDROCHLOROTHIAZIDE 25 MG TAB PO SCH ×2 (07:39→20:53)
[2016-07-14] MEDS: PANTOPRAZOLE 40 MG TABLET PO SCH (07:39)
[2016-07-14 07:54] LABS: Glucose,Whole Blood 222 mg/dL (75-99)
[2016-07-14] MEDS: INSULIN LISPRO (humaLOG) 300 UNIT/3 ML VIAL SQ SCH ×3 (08:03→16:49)
[2016-07-14] MEDS: ceFAZolin 3 GM in SODIUM CHLORIDE 0.9% 100 ML IVPB SCH ×2 (08:07→20:56)
[2016-07-14] MEDS: BUDESONIDE 1 MG/2 ML NEBU INHALATION SCH ×2 (08:21→20:35)
[2016-07-14] MEDS: IPRATROPIUM-ALBUTEROL 3 ML NEB INHALATION SCH ×4 (08:21→20:35)
[2016-07-14 09:03] LABS: Basophils % (A) 0 %; CH 31.1; CHCM 32.8; Eosinophils # (A) 0.3 k/uL (0-0.7); Eosinophils % (A) 2 %; HCT 29.9 % (39.0-53.0); HGB 9.9 gm/dL (13.0-17.5); Luc # (Auto) 0.21; Luc % (Auto) 2; Lymphocytes # (A) 1.3 k/uL (1.0-4.8); Lymphocytes % (A) 11 %; MCH 31.5 pg (25.0-35.0); MCHC 33.1 g/dL (31.0-37.0); MCV 95.1 fL (80.0-100.0); Mean Platelet Volume 7.2; Monocytes % (A) 8 %; Neutrophils # (A) 9.1 k/uL (1.3-7.7); Neutrophils % (A) 76 %; RBC 3.15 m/uL (4.30-5.90); RDW 13.4 % (11.5-15.5); WBC 11.9 k/uL (3.8-10.6)
[2016-07-14 09:12] LABS: Anion Gap 12 mmol/L; Blood Urea Nitrogen 31 mg/dL (9-20); Calcium 8.9 mg/dL (8.4-10.2); Carbon Dioxide 29 mmol/L (22-30); Chloride 95 mmol/L (98-107); Glucose 118 mg/dL (74-99); Non-African American GFR(MDRD) >60 (>60 ml/min/1.73 sqM); Potassium 4.4 mmol/L (3.5-5.1); Sodium 136 mmol/L (137-145)
--- NOTE | 2016-07-14 09:15 | P.PN ---
Progress Note - Text Postoperative day #8 Patient is seen and examined today at bedside. The patient has some pain around the surgical site as expected but his pain is being better controlled primarily with oral medications at this point. He is not having any fevers. Yesterday he did not have any significant drainage from the wound site but this morning after some mobilization he had significant drainage which was serosanguineous saturating the dressing. He has remained on IV antibiotics was not having any evidence of fevers or chills or active infection. He denies any headaches or any evidence of positional headaches. Physical Exam Afebrile with stable vital signs Abdomen is soft nontender. Chest has good excursion deep and space expiration At the incision site there is No erythema there is no purulence. I removed the dressing was saturated with serosanguineous fluid. The drainage appears to be coming from the drain site itself. I removed the Hemovac drain. There is very scant drainage from the top of the incision site but this is essentially well-healed. There is no erythema. There is no purulence. There is no foul order. I am able to express some serosanguineous fluid from the drain site itself but not from the incision site. Extremities have not had neurologic change from prior to surgery. He is able to dorsiflex plantarflex and do sustained EHL. He still has some sciatica symptoms at his left lower extremity. The blister area over his left buttock is dressed and without purulence. It appears to be healing appropriately Calves and thighs were soft nontender without evidence of DVT. Assessment/Plan Postoperative day #8 status post decompression and fusion for his degenerative scoliosis with severe spinal stenosis and spondylolisthesis Delayed wound healing with postoperative drainage Superficial pressure sore had left gluteus area which appears to be healing Chronic obstructive pulmonary disease which appears to be stable Patient is progressing quite slowly from the surgery. His wound has continued to have some drainage and most of the drainage seems to be isolated to the drain site itself. I removed the drain. There is no purulence but there is still some serosanguineous drainage and with his other medical issues I think while there is continued drainage we should still have him on IV antibiotics. Once the drainage stops more completely we can discontinue antibiotics and I think it will be okay for him to be transferred to extended care facility. This will likely be tomorrow on Monday that he is able to be transferred. The pressure sore at his gluteal area seems to be stable. This will take some time to heal but it does not seem to be worsening. He should continue with his accommodative mattress and local wound care. The patient has some sciatica-type symptoms which were present prior to his surgery I discussed this again with him today and he understands that this will take time to see how the nerve response from the surgery now that it has been decompressed. He is not having new neurologic issues. We will continue to increase the patient's mobilization with therapy. We will continue pain control with oral or IV medications. We'll continue to follow patient closely.
[2016-07-14 11:33] LABS: Glucose,Whole Blood 149 mg/dL (75-99)
[2016-07-14] MEDS: LACTATED RINGERS 1,000 ML IV SCH (15:04)
[2016-07-14] MEDS: LORazepam 2 MG/ML SYRINGE IV PRN (15:40)
--- NOTE | 2016-07-14 16:10 | P.PN ---
Subjective Interval follow-up: Patient is evaluated at bedside. Patient is complaining of "sciatica pain to his right low back." Denies chills, fevers, nausea, vomiting , shortness of breath, chest pain, or abdominal pain. Patient is urinating without difficulty. Patient has been up walking in the [place]. Patient had a bowel movement this morning. Patient is tolerating diet. Patient states that orthopedic service will like to keep him one more day to monitor drainage from his incision where the Hemovac was pulled this morning. Patient is afebrile. Labs essentially unremarkable. Objective - Vital Signs Vital signs: Vital Signs Temp 97.6 F 07/14/16 07:00 Pulse 96 07/14/16 15:23 Resp 18 07/14/16 15:23 BP 120/49 07/14/16 07:00 Pulse Ox 94 L 07/14/16 07:00 Intake & Output 07/13/16 07/14/16 07/14/16 18:59 06:59 18:59 Intake Total 580 1300 850 Output Total 30 Balance 580 1270 850 Weight 149.685 kg 149.685 kg Intake: Intake, IV Titration 100 100 100 Amount ceFAZolin 3 gm In Sodium 100 100 100 Chloride 0.9% 100 ml @ 100 mls/hr IVPB Q12HR [facility] Rx#:[id number] Oral 480 1200 750 Output: Drainage 30 Right Lower Back 30 Other: Voiding Method Toilet Toilet Toilet # Voids 4 2 4 # Bowel Movements 1 2 - Exam GENERAL: Pt awake and alert, well-appearing, well-nourished, and in no acute distress. HEAD: Atraumatic, normocephalic. EYES: Pupils equal, round, sclera anicteric, conjunctiva are normal. ENT: Moist mucous membranes. NECK: Supple. LUNGS: Breath sounds diminished to auscultation bilaterally. No wheezes, rales , or rhonchi. HEART: Heart S1, S2, no S3 or S4. Regular rate and rhythm. No murmurs, rubs or gallops. ABDOMEN: Soft, nontender, nondistended, normoactive bowel sounds. No guarding, no rebound. No masses or organomegaly appreciated. EXTREMITIES: 2+ peripheral pulses. No edema. No calf tenderness. NEUROLOGICAL: Pt oriented x 3. No focal deficits. Strength and sensation grossly intact. PSYCH: Normal mood, normal affect. SKIN: Warm, dry. Dressing to posterior back with serosanguineous drainage. Dressing to left buttocks intact. Papular, erythematous, pruritic rash noted to posterior left upper back, decrease in appearance from yesterday. - Labs CBC & Chem 7: 07/14/16 07:57 07/14/16 07:57 Labs: Abnormal Lab Results - Last 24 Hours (Table) 07/13/16 07/13/16 07/14/16 Range/Units 17:16 20:39 07:06 WBC (3.8-10.6) k/uL RBC (4.30-5.90) m/uL Hgb (13.0-17.5) gm/dL Hct (39.0-53.0) % Neutrophils # (1.3-7.7) k/uL Sodium (137-145) mmol/L Chloride (98-107) mmol/L BUN (9-20) mg/dL Glucose (74-99) mg/dL POC Glucose (mg/dL) 116 H 153 H 222 H (75-99) mg/dL 07/14/16 07/14/16 07/14/16 Range/Units 07:57 07:57 11:22 WBC 11.9 H (3.8-10.6) k/uL RBC 3.15 L (4.30-5.90) m/uL Hgb 9.9 L (13.0-17.5) gm/dL Hct 29.9 L (39.0-53.0) % Neutrophils # 9.1 H (1.3-7.7) k/uL Sodium 136 L (137-145) mmol/L Chloride 95 L (98-107) mmol/L BUN 31 H (9-20) mg/dL Glucose 118 H (74-99) mg/dL POC Glucose (mg/dL) 149 H (75-99) mg/dL Assessment and Plan Plan: Impression: 1. Degenerative scoliosis, degenerative disc degeneration, severe spinal stenosis L2 to S1, facet arthrosis L2 to S1, low back pain with lower extremity radiculopathy, spondylolisthesis L4 5 and lateral listhesis L3 4 status post Laminectomy and decompression with wide bilateral foraminotomies and partial facetectomy L2-3 L3 4 L4 5 and L5-S1; Posterior lateral decompression and fusion L2-3 L3 4 L4 5 and L5-S1 on 07/06/2016 2. COPD. 3. Diabetes mellitus type 2. 4. Constipation, resolved. 5. Morbid obesity. 6. Hypertension. 7. Question underlying obstructive sleep apnea. 8. Wound to left buttucks with blisters to right buttucks. Infectitious disease consult requested, recommendations noted. Please see nursing documentation for wound measurements. 9. Rash to posterior upper right back, improving Plan: Continue surgical management by orthopedic service. Continue current medications. Increase activity. Continue GI and DVT prophylaxis. From a medical standpoint, patient is cleared for discharge to subacute rehab. The above impression and plan have been discussed and directed by Dr. Dias. Jordan SPANGLER acting as scribe for Dr. Dias.
[2016-07-14 16:51] LABS: Glucose,Whole Blood 107 mg/dL (75-99)
[2016-07-14 20:14] LABS: Glucose,Whole Blood 173 mg/dL (75-99)
[2016-07-14] MEDS: amLODIPine 10 MG TAB PO SCH (20:53)
[2016-07-14] MEDS: ATORVASTATIN 40 MG TAB PO SCH (20:53)
--- NOTE | 2016-07-14 21:15 | P.PN ---
Subjective Principal diagnosis: Pressure ulcer left buttocks stage III This is a 55-year-old male who was admitted on July 06 and underwent a posterior lateral decompression and fusion of the lumbar spine due to degenerative scoliosis, asymmetrical degenerative disc disease and severe spinal stenosis. There was a noted 1 mm dural tear. The following day, patient did have abdominal pain and distention. CAT scan of the abdomen and pelvis on July 07 showed no acute process. Patient was complaining of lower rib pain due to surgical positioning and labored breathing. Chest x-ray showed no acute process on July 08. Patient has been followed by pulmonary medicine for COPD and questionable obstructive sleep apnea and have now signed off the case and following as needed basis. Patient has developed a wound to the left buttocks that appeared on the day following surgery according to his . There is also small blisters on the right buttocks which are new. Patient is complaining of low back pain and is currently on oral pain medications. He states his abdominal pain has resolved as well as the lower rib pain is improved. His breathing is stable. He does have chronic shortness of breath. He has ambulated to the bathroom and in the hallway with a walker. He is scheduled for discharge to [facility] today. Patient was on Kefzol from July 06 through the and this was resumed on July 10 to present. He has been afebrile. White count is currently 11.2. Hemovac is in place to the lumbar wound. His appetite was decreased immediately after surgery but is back to normal at this time. He has not had a bowel movement since admission. He is voiding without difficulty. Patient does have diabetes mellitus type 2 and hemoglobin A1c is 6.4. Only cultures available are nasal swab positive for staph aureus not MRSA. Still having drainage from his surgical site but improving after the drain was removed. Less uncomfortable today. Objective - Vital Signs Vital signs: Vital Signs Temp 99.3 F 07/14/16 15:00 Pulse 88 07/14/16 20:53 Resp 18 07/14/16 15:23 BP 135/64 07/14/16 20:50 Pulse Ox 97 07/14/16 15:00 Intake & Output 07/14/16 07/14/16 07/15/16 06:59 18:59 06:59 Intake Total 1300 850 Output Total 30 Balance 1270 850 Weight 149.685 kg Intake: Intake, IV Titration 100 100 Amount ceFAZolin 3 gm In Sodium 100 100 Chloride 0.9% 100 ml @ 100 mls/hr IVPB Q12HR [facility] Rx#:[id number] Oral 1200 750 Output: Drainage 30 Right Lower Back 30 Other: Voiding Method Toilet Toilet # Voids 2 4 # Bowel Movements 2 - Exam Gen: This is a morbidly obese 55-year-old male. He is seen sitting in a chair and has noted difficulty getting to a standing position. HEENT: Head is atraumatic, normocephalic. Pupils equal, round. Sclerae is anicteric. Conjunctiva pink. Because members of the mouth are moist. No thrush noted. Dentition is in poor order. NECK: Supple. No JVD. No lymphadenopathy. No thyromegaly. LUNGS: Clear to auscultation. No wheezes or rhonchi. No intercostal retractions. HEART: Regular rate and rhythm. No murmur. ABDOMEN: Distended. Bowel sounds are present. No masses. No tenderness. BACK: Dressing is in place to the lumbar area no longer saturated, Hemovac removed. EXTREMITIES: +1 pedal edema. No calf tenderness. The stage III ulcer left buttocks is clean with erythematous space no purulence no surrounding erythema. Small blisters to the right are stable. Less drainage to both the buttocks as well as the lumbar area. NEUROLOGICAL: Patient is awake, alert and oriented x3. - Labs CBC & Chem 7: 07/14/16 07:57 07/14/16 07:57 Labs: Abnormal Lab Results - Last 24 Hours (Table) 07/14/16 07/14/16 07/14/16 Range/Units 07:06 07:57 07:57 WBC 11.9 H (3.8-10.6) k/uL RBC 3.15 L (4.30-5.90) m/uL Hgb 9.9 L (13.0-17.5) gm/dL Hct 29.9 L (39.0-53.0) % Neutrophils # 9.1 H (1.3-7.7) k/uL Sodium 136 L (137-145) mmol/L Chloride 95 L (98-107) mmol/L BUN 31 H (9-20) mg/dL Glucose 118 H (74-99) mg/dL POC Glucose (mg/dL) 222 H (75-99) mg/dL 07/14/16 07/14/16 07/14/16 Range/Units 11:22 16:47 20:13 WBC (3.8-10.6) k/uL RBC (4.30-5.90) m/uL Hgb (13.0-17.5) gm/dL Hct (39.0-53.0) % Neutrophils # (1.3-7.7) k/uL Sodium (137-145) mmol/L Chloride (98-107) mmol/L BUN (9-20) mg/dL Glucose (74-99) mg/dL POC Glucose (mg/dL) 149 H 107 H 173 H (75-99) mg/dL Laboratory Results WBC 11.9 k/uL (3.8-10.6) H 07/14/16 07:57 RBC 3.15 m/uL (4.30-5.90) L 07/14/16 07:57 Hgb 9.9 gm/dL (13.0-17.5) L 07/14/16 07:57 Hct 29.9 % (39.0-53.0) L 07/14/16 07:57 MCV 95.1 fL (80.0-100.0) 07/14/16 07:57 MCH 31.5 pg (25.0-35.0) 07/14/16 07:57 MCHC 33.1 g/dL (31.0-37.0) 07/14/16 07:57 RDW 13.4 % (11.5-15.5) 07/14/16 07:57 Plt Count 404 k/uL (150-450) 07/14/16 07:57 Neutrophils % 76 % 07/14/16 07:57 Lymphocytes % 11 % 07/14/16 07:57 Monocytes % 8 % 07/14/16 07:57 Eosinophils % 2 % 07/14/16 07:57 Basophils % 0 % 07/14/16 07:57 Neutrophils # 9.1 k/uL (1.3-7.7) H 07/14/16 07:57 Lymphocytes # 1.3 k/uL (1.0-4.8) 07/14/16 07:57 Monocytes # 1.0 k/uL (0-1.0) 07/14/16 07:57 Eosinophils # 0.3 k/uL (0-0.7) 07/14/16 07:57 Basophils # 0.0 k/uL (0-0.2) 07/14/16 07:57 Sodium 136 mmol/L (137-145) L 07/14/16 07:57 Potassium 4.4 mmol/L (3.5-5.1) 07/14/16 07:57 Chloride 95 mmol/L (98-107) L 07/14/16 07:57 Carbon Dioxide 29 mmol/L (22-30) 07/14/16 07:57 Anion Gap 12 mmol/L 07/14/16 07:57 BUN 31 mg/dL (9-20) H 07/14/16 07:57 Creatinine 0.87 mg/dL (0.66-1.25) 07/14/16 07:57 Est GFR (MDRD) Af Amer >60 (>60 ml/min/1.73 sqM) 07/14/16 07:57 Est GFR (MDRD) Non-Af >60 (>60 ml/min/1.73 sqM) 07/14/16 07:57 Glucose 118 mg/dL (74-99) H 07/14/16 07:57 POC Glucose (mg/dL) 173 mg/dL (75-99) H 07/14/16 20:13 POC Glu Cotton Washer Verónica Grover 07/14/16 20:[address] Glu mg/dL 137 mg/dL 07/08/16 08:12 Hemoglobin A1c 6.4 % (4.2-6.1) H 07/08/16 08:12 Plasma Lactic Acid Pedrito 1.1 mmol/L (0.7-2.0) 07/07/16 22:25 Calcium 8.9 mg/dL (8.4-10.2) 07/14/16 07:57 Total Bilirubin 0.8 mg/dL (0.2-1.3) 07/08/16 08:12 AST 171 U/L (17-59) H 07/08/16 08:12 ALT 51 U/L (21-72) 07/08/16 08:12 Alkaline Phosphatase 57 U/L (38-126) 07/08/16 08:12 Total Protein 5.9 g/dL (6.3-8.2) L 07/08/16 08:12 Albumin 3.4 g/dL (3.5-5.0) L 07/08/16 08:12 Blood Type O Positive 06/28/16 11:05 Blood Type Recheck No 06/28/16 11:05 Antibody Screen NEGATIVE 06/28/16 11:05 Spec Expiration Date 07/08/2016 06/28/16 11:05 Assessment and Plan (1) Pressure ulcer of buttock Narrative/Plan: 55-year-old male with history of multiple medical troubles he has severe back pain and underwent lumbar laminectomy. Is doing well but now developed a pressure ulceration to his left buttocks. Few vesicles on the right buttocks also. Improved today. Less drainage today but the hydrocolloid dressings are not staying in place because he observed her dressings are being utilized instead. When he sitting upright utilize the air cushion. Once the drainage from his surgical wound is improved he will transfer to extended care for ongoing wound care and monitor for infection. Remains without evidence of infection. Likely transfer tomorrow. Status: Acute
[2016-07-15] MEDS: LORazepam 2 MG/ML SYRINGE IV PRN (00:32)
[2016-07-15] MEDS: LACTATED RINGERS 1,000 ML IV SCH (04:48)
[2016-07-15] MEDS: HYDROcodone/APAP 10-325MG 1 EACH TAB PO PRN ×2 (06:09→10:13)
[2016-07-15] MEDS: CYCLOBENZAPRINE 10 MG TAB PO PRN (06:10)
[2016-07-15 07:15] LABS: Glucose,Whole Blood 128 mg/dL (75-99)
[2016-07-15] MEDS: IPRATROPIUM-ALBUTEROL 3 ML NEB INHALATION SCH ×2 (07:25→11:25)
[2016-07-15] MEDS: BUDESONIDE 1 MG/2 ML NEBU INHALATION SCH (07:25)
[2016-07-15] MEDS: INSULIN LISPRO (humaLOG) 300 UNIT/3 ML VIAL SQ SCH (07:35)
[2016-07-15] MEDS: ALLOPURINOL 300 MG TAB PO SCH (07:40)
[2016-07-15] MEDS: DOCUSATE 100 MG CAP PO SCH (07:40)
[2016-07-15] MEDS: LISINOPRIL 20 MG TAB PO SCH (07:40)
[2016-07-15] MEDS: HYDROCHLOROTHIAZIDE 25 MG TAB PO SCH (07:41)
[2016-07-15] MEDS: ceFAZolin 3 GM in SODIUM CHLORIDE 0.9% 100 ML IVPB SCH (07:41)
[2016-07-15] MEDS: PANTOPRAZOLE 40 MG TABLET PO SCH (07:41)
[2016-07-15] MEDS: metFORMIN 500 MG TAB PO SCH (07:41)
[2016-07-15 08:06] VITALS: BP 131/66; RESP 18; TEMP 97.6
[2016-07-15 11:35] VITALS: PULSE 86
== END 2016-07-15 12:10 | DRG 460 ==
LOC: 2ORMAIN 07:16 → 5MS5E 15:27
PROVIDERS: ADMIT Orthopaedic Surgery Orthopaedic Surgery of the Spine; ATTEND Orthopaedic Surgery Orthopaedic Surgery of the Spine
PROC: 0SG3071 Fusion of Lumbosacral Joint with Autologous Tissue Substitute, Posterior Approach, Posterior Column, Open Approach (ICD-10-PCS; principal; 2016-07-06 08:30)
PROC: 4A11X4G Monitoring of Peripheral Nervous Electrical Activity, Intraoperative, External Approach (ICD-10-PCS; principal; 2016-07-06 08:30)
PROC: 00UT0JZ Supplement Spinal Meninges with Synthetic Substitute, Open Approach (ICD-10-PCS; principal; 2016-07-06 08:30)
PROC: 0SG1071 Fusion of 2 or more Lumbar Vertebral Joints with Autologous Tissue Substitute, Posterior Approach, Posterior Column, Open Approach (ICD-10-PCS; principal; 2016-07-06 08:30)
PROC: 07DS3ZZ Extraction of Vertebral Bone Marrow, Percutaneous Approach (ICD-10-PCS; principal; 2016-07-06 08:30)
DX: M48.06 Spinal stenosis, lumbar region (principal); L89.323 Pressure ulcer of left buttock, stage 3; L89.312 Pressure ulcer of right buttock, stage 2; Z68.41 Body mass index [BMI] 40.0-44.9, adult; E66.01 Morbid (severe) obesity due to excess calories; M41.80 Other forms of scoliosis, site unspecified; G97.41 Accidental puncture or laceration of dura during a procedure; I10 Essential (primary) hypertension; E11.9 Type 2 diabetes mellitus without complications; D64.9 Anemia, unspecified; J44.9 Chronic obstructive pulmonary disease, unspecified; E78.5 Hyperlipidemia, unspecified; E87.6 Hypokalemia; D72.829 Elevated white blood cell count, unspecified; M51.16 Intervertebral disc disorders with radiculopathy, lumbar region; G47.33 Obstructive sleep apnea (adult) (pediatric); G89.29 Other chronic pain; H91.90 Unspecified hearing loss, unspecified ear; K59.00 Constipation, unspecified; L29.9 Pruritus, unspecified; M10.9 Gout, unspecified; M43.16 Spondylolisthesis, lumbar region; R09.02 Hypoxemia; M46.96 Unspecified inflammatory spondylopathy, lumbar region; M47.9 Spondylosis, unspecified; M51.37 Other intervertebral disc degeneration, lumbosacral region; Y83.8 Other surgical procedures as the cause of abnormal reaction of the patient, or of later complication, without mention of misadventure at the time of the procedure; Z79.1 Long term (current) use of non-steroidal anti-inflammatories (NSAID); Z79.84 Long term (current) use of oral hypoglycemic drugs; Z87.891 Personal history of nicotine dependence
CPT/HCPCS: 71010; 72020; 72100; 74176; 80048; 80053; 83036; 83605; 85025; 85027; 86850; 86891; 86900; 86901; 94640; 94760

== ENCOUNTER 2016-07-28 16:26 | Inpatient (IN) | payer OTHER, MEDICARE ==
[2016-07-28] MEDS ORDERED: LEVOFLOXACIN 500MG-D5W PMX 500 MG in DEXTROSE/WATER 1 100ML.BAG IVPB SCH (19:00)
[2016-07-28 19:44] LABS: Basophils % (A) 1 %; CH 30.3; CHCM 32.4; Eosinophils # (A) 0.3 k/uL (0-0.7); Eosinophils % (A) 4 %; HCT 29.2 % (39.0-53.0); HDW 3.08; HGB 9.5 gm/dL (13.0-17.5); Hypochromasia Slight; Luc # (Auto) 0.19; Luc % (Auto) 3; Lymphocytes # (A) 1.4 k/uL (1.0-4.8); Lymphocytes % (A) 22 %; MCH 30.5 pg (25.0-35.0); MCHC 32.4 g/dL (31.0-37.0); Mean Platelet Volume 6.7; Monocytes # (A) 0.4 k/uL (0-1.0); Monocytes % (A) 6 %; Neutrophils # (A) 4.2 k/uL (1.3-7.7); Neutrophils % (A) 65 %; RBC 3.11 m/uL (4.30-5.90); RDW 13.5 % (11.5-15.5); WBC 6.5 k/uL (3.8-10.6); WBC (Perox) 7.04
[2016-07-28 20:04] LABS: ALT 40 U/L (21-72); AST 28 U/L (17-59); Alkaline Phosphatase 117 U/L (38-126); Anion Gap 10 mmol/L; Blood Urea Nitrogen 24 mg/dL (9-20); Carbon Dioxide 27 mmol/L (22-30); Chloride 100 mmol/L (98-107); Glucose 149 mg/dL (74-99); Non-African American GFR(MDRD) >60 (>60 ml/min/1.73 sqM); Potassium 4.4 mmol/L (3.5-5.1); Sodium 137 mmol/L (137-145); Total Bilirubin 0.4 mg/dL (0.2-1.3); Total Protein 6.4 g/dL (6.3-8.2)
[2016-07-28] MEDS: ALBUTEROL NEBULIZED 2.5 MG/3 ML INHALATION SCH ×2 (20:09→23:47)
[2016-07-28] MEDS: HYDROcodone/APAP 10-325MG 1 EACH TAB PO PRN (20:20)
[2016-07-28] MEDS: SODIUM CHLORIDE 0.9% 1,000 ML IV SCH (20:21)
[2016-07-28 20:30] LABS: Glucose,Whole Blood 146 mg/dL (75-99)
[2016-07-28 21:07] LABS: Erythrocyte Sedimentation Rate 63 mm/hr (0-15)
[2016-07-28] MEDS: metFORMIN 500 MG TAB PO SCH (22:01)
[2016-07-28] MEDS: INSULIN LISPRO (humaLOG) 300 UNIT/3 ML VIAL SQ SCH (22:04)
[2016-07-28] MEDS: GABAPENTIN 300 MG CAP PO SCH (22:07)
[2016-07-28] MEDS: ALLOPURINOL 300 MG TAB PO SCH (22:08)
[2016-07-29] MEDS: HYDROcodone/APAP 10-325MG 1 EACH TAB PO PRN ×4 (04:17→19:34)
[2016-07-29 07:23] LABS: Glucose,Whole Blood 110 mg/dL (75-99)
[2016-07-29] MEDS ORDERED: PANTOPRAZOLE 40 MG TABLET PO STA (07:37)
--- NOTE | 2016-07-29 08:10 | HP ---
DATE OF ADMISSION: CHIEF COMPLAINT: Left buttocks cellulitis-abscess. This is a 55-year-old white male who postoperatively from a back surgery had a small blister on the bottom of his buttocks that was treated around July 07 and cared for and then sent to long term in [facility]. At that time he had been on oral antibiotics. Came into the office after being discharged for 3 days from [facility] with painful, swollen, large erythematous left buttocks with ulcer. Patient had a laminectomy decompression with wide bilateral foraminotomy L2-L3, L3-L4, L4-L5 and L5-S1 and pulse lateral decompression of L2-L3, L3-L4, L4-L5 and L5-S1 at [facility] by surgeon, Dr. Gonzales. During that period of time, he has some respiratory distress, was treated by Pulmonology, Dr. Durbin, Dr. Mcmillan and responded well. Also while in the hospital he had diabetes and hypertension, which was well-controlled. He has a past medical history of morbid obesity. He has a severe hearing loss. He has generalized arthritis and hypertension, some COPD, and type 2 diabetes, which has been fairly well-controlled. Also has had a history of gout. SOCIAL HISTORY: He just stopped smoking before the surgery at 07/06/2016. He is a nondrinker. He does live with his . He is disabled because of chronic back problems. Previous surgical history is that of shoulder surgery from a dislocation. Family history is basically uneventful. MEDICATIONS: 1. He takes his Mobic 15 mg daily. 2. [place] 10/325 every 4 to 6 hours for pain. 3. Vaseretic 10/25 one b.i.d. 4. Allopurinol 300 daily. 5. Metformin 500 b.i.d. 6. Caduet 10/40 one daily. 7. Cyclobenzaprine 10 mg 3 times a day. REVIEW OF SYSTEMS: CARDIOPULMONARY: No shortness of breath. No chest pain, occasional cough. No orthopnea. No paroxysmal nocturnal dyspnea. GI: No hematemesis, melena, hematochezia. GENITOURINARY: No problems with urination. NEUROMUSCULAR: Buttocks discomfort. Lower back post surgery is actually feeling better. Skin change is just in the left buttocks area. Physical examination in the office. Blood pressure was 138/80, respiratory rate was 16, temperature 99, heart rate was at 98. Patient is well-orientated to person, place, and thing, not depressed. No anxiety, very poor hearing. EYES: Pupils are equal, round, react to light and accommodation. ENT: Showed tympanic membranes and pharynx to be negative. Neck is supple with a midline trachea. CHEST: Essentially clear. HEART: Sinus rhythm with no murmur negative S3, negative S4. ABDOMEN: Obese, soft but no organomegaly or large masses felt. LOWER EXTREMITIES: He has +1 swelling of the lower legs and some discoloration in the lower legs but actually fairly good palpable pulses. No range of motion of the lower back was completed because this is just his recent back surgery of June. The incision of the back appears to be clean and healed well. The right buttocks has an indurated area of a good 10 x 10 cm with an ulceration in the middle and surrounding erythema, purulent discharge was there yesterday according to his . ASSESSMENT: 1. Cellulitis and induration of the left buttocks with possible abscess formation, ulceration of the left buttocks. 2. Status post back surgery since 07/06/2016. 3. Mild chronic obstructive pulmonary disease. 4. Type 2 diabetes. 5. Generalized osteoarthritis. 6. Morbid obesity with hypertension. At this time, I am putting him in the hospital, start him on IV antibiotics and cultures and consult with Dr. Dominguez for further evaluation and direction with antibiotics. Please refer to my orders.
[2016-07-29] MEDS: ALBUTEROL NEBULIZED 2.5 MG/3 ML INHALATION SCH ×4 (08:21→20:31)
[2016-07-29] MEDS: INSULIN LISPRO (humaLOG) 300 UNIT/3 ML VIAL SQ SCH ×4 (08:30→21:38)
[2016-07-29] MEDS: SODIUM CHLORIDE 0.9% 1,000 ML IV SCH (08:30)
[2016-07-29] MEDS: amLODIPine 10 MG TAB PO SCH (08:33)
[2016-07-29] MEDS: HEPARIN SODIUM,PORCINE 5,000 UNIT/ML 1 ML VIAL SQ SCH ×2 (08:35→21:38)
[2016-07-29] MEDS: metFORMIN 500 MG TAB PO SCH ×2 (08:35→21:37)
[2016-07-29 11:39] VITALS: BMI 43.1
[2016-07-29 11:47] LABS: Glucose,Whole Blood 121 mg/dL (75-99)
[2016-07-29] MEDS ORDERED: IV VANCOMYCIN PER PHARMACY 1 EACH MISC MISCELLANE PRN (12:46)
--- NOTE | 2016-07-29 12:46 | P.CON ---
Consult Note - . Consult date: 07/29/16 Assessment/Plan:: This is a 55-year-old male who was admitted on July 06 and underwent a posterior lateral decompression and fusion of the lumbar spine due to degenerative scoliosis, asymmetrical degenerative disc disease and severe spinal stenosis. ID was consulted during his hospitalization due to a wound to the left buttocks which appeared the day following surgery. This appeared to be a friction type wound. Patient was stabilized and was discharged to [facility]. Patient states he did well there and was discharged from rehab 2 days ago. He had an appointment with Dr. Hughes yesterday and once he took a look at the wound on his buttocks, patient was sent in as a direct admission to the [facility]. Patient has been started on ceftriaxone and Levaquin. Patient states his back is a little bit sore and he also has soreness and numbness to the left buttocks at the site of the wound. Patient denies having any fevers and he has been afebrile since admission. His appetite has been good and he has been having bowel movements. He denies any difficulty urinating. Overall he states that the back pain is improved since surgery although he still has some soreness to the site. WBC is 6.5, GFR greater than 60 and albumin 3.7. Blood culture and urine culture are status received.Please see the consult note as dictated by SIMONE Gomez. Patient improved since last visit as to the ulcer but does have the induration warmth and firmness to the tissue. Consistent with some cellulitis in this area. Local wound care with Aquacel silver will be utilized. Offloading with the cushion to his chair will be utilized. Pain control appears to be adequate. Antibiotic therapy will be with Rocephin and vancomycin until cultures are available. I agree with evaluation, assessment and plan as dictated by SIMONE Gomez.
--- NOTE | 2016-07-29 13:02 | P.CONS ---
History of Present Illness - Reason for Consult Consult date: 07/29/16 Wound left buttocks - History of Present Illness This is a 55-year-old male who was admitted on July 06 and underwent a posterior lateral decompression and fusion of the lumbar spine due to degenerative scoliosis, asymmetrical degenerative disc disease and severe spinal stenosis. ID was consulted during his hospitalization due to a wound to the left buttocks which appeared the day following surgery. This appeared to be a friction type wound. Patient was stabilized and was discharged to [facility]. Patient states he did well there and was discharged from rehab 2 days ago. He had an appointment with Dr. Hughes yesterday and once he took a look at the wound on his buttocks, patient was sent in as a direct admission to the [facility]. Patient has been started on ceftriaxone and Levaquin. Patient states his back is a little bit sore and he also has soreness and numbness to the left buttocks at the site of the wound. Patient denies having any fevers and he has been afebrile since admission. His appetite has been good and he has been having bowel movements. He denies any difficulty urinating. Overall he states that the back pain is improved since surgery although he still has some soreness to the site. WBC is 6.5, GFR greater than 60 and albumin 3.7. Blood culture and urine culture are status received. Review of Systems All systems: negative Constitutional: Denies chills, Denies fever Eyes: denies blurred vision, denies pain Ears, nose, mouth and throat: Denies headache, Denies sore throat Cardiovascular: Denies chest pain, Denies shortness of breath Respiratory: Denies cough Gastrointestinal: Denies abdominal pain, Denies diarrhea, Denies nausea, Denies vomiting Musculoskeletal: Reports low back pain, Denies myalgias Integumentary: Reports wounds, Denies pruritus, Denies rash Neurological: Denies numbness, Denies weakness Psychiatric: Denies anxiety, Denies depression Endocrine: Denies fatigue, Denies weight change Past Medical History Past Medical History: Diabetes Mellitus, Hyperlipidemia, Hypertension, Osteoarthritis (OA) Additional Past Medical History / Comment(s): neuropathy, SCOLIOSIS,LUMBAR SPINAL STENOSIS(HAD SX) History of Any Multi-Drug Resistant Organisms: None Reported Past Surgical History: Joint Replacement, Orthopedic Surgery, Tonsillectomy Additional Past Surgical History / Comment(s): right hip replaced, left shoulder surg., right foot surg, posterior lateral decompression and fusion lumbar spine. Past Anesthesia/Blood Transfusion Reactions: No Reported Reaction Past Psychological History: No Psychological Hx Reported Additional Psychological History / Comment(s): PT LIVES WITH HIS AND DAUGHTER IN A SINGLE STORY HOME THAT HAS 3-4 STEPS TO ENTER. PETS: 2 DOGS. USES A WALKER WHEN UP. HOME SERVICES THRU [facility] FIRST VISIT WAS TODAY. Smoking Status: Former smoker Past Alcohol Use History: None Reported Additional Past Alcohol Use History / Comment(s): QUIT SMOKING MAY 2016. He was a smoker one pack per day for greater than 30 years. He lives at home with his in a couple dogs. He is currently on disability due to his back problems. He served in the [employer] and was in [place]. He has had significant hearing loss due to his [employer] service. Past Drug Use History: None Reported - Past Family History Mother Family Medical History: Myocardial Infarction (PA) Additional Family Medical History / Comment(s): CARDIAC STENTS Medications and Allergies Home Medications Medication Instructions Recorded Confirmed Type RX: Enalapril/Hydrochlorothiazide 1 tab PO BID 11/11/13 07/28/16 History [Vaseretic 10-25 mg] RX: metFORMIN HCL [Glucophage] 500 mg PO BID 11/11/13 07/28/16 History RX: Allopurinol [Zyloprim] 300 mg PO HS 02/03/14 07/28/16 History RX: amLODIPine/ATORVASTATIN 1 tab PO HS 02/03/14 07/28/16 History [Caduet 10 mg-40 mg Tablet] Gabapentin [Neurontin] 300 mg PO HS 07/28/16 07/28/16 History HYDROcodone/APAP 10-325MG [[place] 1 tab PO Q4H PRN 07/28/16 07/28/16 History 10] Meloxicam [Mobic] 15 mg PO QAM 07/28/16 07/28/16 History Menthol/Zinc Oxide [Calmoseptine 1 applic TOPICAL DAILY PRN 07/28/16 07/28/16 History Ointment] Allergies Allergy/AdvReac Type Severity Reaction Status Date / Time No Known Allergies Allergy Verified 07/28/16 18:23 Physical Exam Vitals: Vital Signs Temp Pulse Resp BP Pulse Ox 07/29/16 07:00 98.7 F 82 18 104/55 98 07/28/16 22:33 99.1 F 80 18 134/61 96 07/28/16 18:04 98.9 F 98 18 148/65 94 L Intake and Output 07/28/16 07/29/16 07/29/16 22:59 06:59 14:59 Intake Total 440 524 Balance 440 524 Intake: Intake, IV Titration 284 Amount Sodium Chloride 0.9% 1, 284 000 ml @ 75 mls/hr IV . [id number] LUKE Rx#:[id number] Oral 440 240 Other: # Voids 1 1 Weight 148.325 kg Gen: This is a morbidly obese 55-year-old male. He is seen sitting in a chair and has noted difficulty getting to a standing position. HEENT: Head is atraumatic, normocephalic. Pupils equal, round. Sclerae is anicteric. Conjunctiva pink. Because members of the mouth are moist. No thrush noted. Dentition is in poor order. NECK: Supple. No JVD. No lymphadenopathy. No thyromegaly. LUNGS: Clear to auscultation. No wheezes or rhonchi. No intercostal retractions. HEART: Regular rate and rhythm. No murmur. ABDOMEN: Distended. Bowel sounds are present. No masses. No tenderness. BACK: Dressing is in place to the lumbar area with blood saturation. Hemovac in place with drainage of sanguinous material. EXTREMITIES: +1 pedal edema. No calf tenderness. There is a shearing type wound to the left buttocks and vesicles noted on the right buttocks which does not appear to be purulent. NEUROLOGICAL: Patient is awake, alert and oriented x3. Cranial nerves 2 through 12 are grossly intact. Results Results: Laboratory Results WBC 6.5 k/uL (3.8-10.6) 07/28/16 19:23 RBC 3.11 m/uL (4.30-5.90) L 07/28/16 19:23 Hgb 9.5 gm/dL (13.0-17.5) L 07/28/16 19:23 Hct 29.2 % (39.0-53.0) L 07/28/16 19:23 MCV 94.0 fL (80.0-100.0) 07/28/16 19:23 MCH 30.5 pg (25.0-35.0) 07/28/16 19:23 MCHC 32.4 g/dL (31.0-37.0) 07/28/16 19:23 RDW 13.5 % (11.5-15.5) 07/28/16 19:23 Plt Count 314 k/uL (150-450) 07/28/16 19:23 Neutrophils % 65 % 07/28/16 19:23 Lymphocytes % 22 % 07/28/16 19:23 Monocytes % 6 % 07/28/16 19:23 Eosinophils % 4 % 07/28/16 19:23 Basophils % 1 % 07/28/16 19:23 Neutrophils # 4.2 k/uL (1.3-7.7) 07/28/16 19:23 Lymphocytes # 1.4 k/uL (1.0-4.8) 07/28/16 19:23 Monocytes # 0.4 k/uL (0-1.0) 07/28/16 19:23 Eosinophils # 0.3 k/uL (0-0.7) 07/28/16 19:23 Basophils # 0.0 k/uL (0-0.2) 07/28/16 19:23 Hypochromasia Slight 07/28/16 19:23 ESR 63 mm/hr (0-15) H 07/28/16 19:23 Sodium 137 mmol/L (137-145) 07/28/16 19:23 Potassium 4.4 mmol/L (3.5-5.1) 07/28/16 19:23 Chloride 100 mmol/L (98-107) 07/28/16 19:23 Carbon Dioxide 27 mmol/L (22-30) 07/28/16 19:23 Anion Gap 10 mmol/L 07/28/16 19:23 BUN 24 mg/dL (9-20) H 07/28/16 19:23 Creatinine 1.10 mg/dL (0.66-1.25) 07/28/16 19:23 Est GFR (MDRD) Af Amer >60 (>60 ml/min/1.73 sqM) 07/28/16 19:23 Est GFR (MDRD) Non-Af >60 (>60 ml/min/1.73 sqM) 07/28/16 19:23 Glucose 149 mg/dL (74-99) H 07/28/16 19:23 POC Glucose (mg/dL) 110 mg/dL (75-99) H 07/29/16 07:22 POC Glu White Sugar Supervisor ID Florian Horta 07/29/16 07:22 Calcium 9.0 mg/dL (8.4-10.2) 07/28/16 19:23 Total Bilirubin 0.4 mg/dL (0.2-1.3) 07/28/16 19:23 AST 28 U/L (17-59) 07/28/16 19:23 ALT 40 U/L (21-72) 07/28/16 19:23 Alkaline Phosphatase 117 U/L (38-126) 07/28/16 19:23 Total Protein 6.4 g/dL (6.3-8.2) 07/28/16 19:23 Albumin 3.7 g/dL (3.5-5.0) 07/28/16 19:23 CBC & Chem 7: 07/28/16 19:23 07/28/16 19:23 Labs: Abnormal Lab Results - Last 24 Hours (Table) 07/28/16 07/28/16 07/28/16 Range/Units 19:23 19:23 20:28 RBC 3.11 L (4.30-5.90) m/uL Hgb 9.5 L (13.0-17.5) gm/dL Hct 29.2 L (39.0-53.0) % ESR 63 H (0-15) mm/hr BUN 24 H (9-20) mg/dL Glucose 149 H (74-99) mg/dL POC Glucose (mg/dL) 146 H (75-99) mg/dL 07/29/16 Range/Units 07:22 RBC (4.30-5.90) m/uL Hgb (13.0-17.5) gm/dL Hct (39.0-53.0) % ESR (0-15) mm/hr BUN (9-20) mg/dL Glucose (74-99) mg/dL POC Glucose (mg/dL) 110 H (75-99) mg/dL Assessment and Plan Plan: This is a 55-year-old male who was recently hospitalized for lumbar surgery and during his stay sustained wound to the left buttocks and now presents with concern for wound infection. He is currently on ceftriaxone and Levaquin and will be changed to Rocephin and vancomycin until cultures are available. Local wound care will be addressed. Continue supportive care. Cultures will be monitored. Further recommendations as patient progresses. The above dictated assessment and findings were discussed with Dr. Dominguez. The impression and plan of care have been directed as dictated. Ana Gomez nurse practitioner acting as scribe for Dr. Dominguez.
[2016-07-29] MEDS ORDERED: VANCOMYCIN 2,500 MG in SODIUM CHLORIDE 0.9% 500 ML IVPB ONE (14:00)
[2016-07-29] MEDS: traMADol 50 MG TAB PO SCH ×3 (14:09→21:47)
--- NOTE | 2016-07-29 16:19 | PN ---
Chuyo-r[age]hep-iatp-old white male who came into my office after being discharged from [facility] with an indurated erythematous large ulcerated area on the left buttock. It started as a small pressure ulcer on the buttock and has extended into an indurated red area. His had told me the day before that it was purulent, smelling like pus, and when I saw him it was more serosanguineous. But because of the size, which was close to 10 x 10 cm of induration, the patient was placed in the hospital accordingly. He is status post 07/06 having lumbar back surgery with Dr. oGnzales. He healed well in the hospital at that time. He also had an episode of respiratory failure that responded to treatment with Dr. Mcmillan and then was later discharged after seeing Dr. Dominguez and myself to [facility]. Yesterday was the first day I saw him on followup. He also has a past medical history of obesity, COPD where he had just stopped smoking days before the surgery, insulin-dependent diabetes, and because of his lumbar degenerative disc disease he was pretty much immobile, sitting in a chair most of the day. REVIEW OF SYSTEMS: CARDIOPULMONARY: No shortness of breath. No chest pain, orthopnea. No paroxysmal nocturnal dyspnea. GI: No hematemesis, melena, hematochezia. : Negative. He has been able to urinate without any problems. NEUROMUSCULAR: There is just the painful left buttock; he says he cannot get comfortable in any position. EXTREMITIES: Legs with no complaints. On the rest of the skin he has no complaints. PSYCHIATRIC: Anxious but declares no depression. VITAL SIGNS TODAY: Blood pressure of 134/60. Heart rate is in the 80s. Temperature is 99.1. Respiratory rate is 18. EYES: Pupils are equal, round, reactive to light and accommodation. ENT: Tympanic membranes and pharynx negative. NECK: Supple with a midline trachea. CHEST: Essentially clear to auscultation. HEART: Sinus rhythm. ABDOMEN: Obese. No gross organomegaly or masses. Lower extremities have +1 swelling. Left buttock is ulcerated with some eschar-type of tissue with a large indurated area on the left buttocks. I can see serosanguineous drainage. I do not see any purulent drainage. He has negative [place] bilaterally. ASSESSMENT: 1. Status post lumbar back surgery with Dr. Gonzales. 2. Pressure ulcer on the left buttock which has progressed to indurated, questionably infected left buttock area. 3. History of type 2 diabetes which has been well controlled with hemoglobin A1c in the 6s (6.6). 4. Morbid obesity. 5. Hypertension, which has been well controlled. 6. Gout. PLAN: Will continue on insulin to scale and continue with Rocephin and Levaquin at this time until Dr. Dominguez sees the patient. Will do GI prophylaxis and DVT prophylaxis. Prognosis guarded. Please refer to my orders.
[2016-07-29 16:35] LABS: Glucose,Whole Blood 116 mg/dL (75-99)
[2016-07-29 21:17] LABS: Glucose,Whole Blood 116 mg/dL (75-99)
[2016-07-29] MEDS: GABAPENTIN 300 MG CAP PO SCH (21:37)
[2016-07-29] MEDS: ALLOPURINOL 300 MG TAB PO SCH (21:37)
[2016-07-30] MEDS: VANCOMYCIN 2,000 MG in SODIUM CHLORIDE 0.9% 500 ML IVPB SCH ×2 (00:03→16:02)
[2016-07-30] MEDS: SODIUM CHLORIDE 0.9% 1,000 ML IV SCH ×2 (00:16→19:57)
[2016-07-30] MEDS: HYDROcodone/APAP 10-325MG 1 EACH TAB PO PRN ×3 (03:19→16:02)
[2016-07-30] MEDS: ALBUTEROL NEBULIZED 2.5 MG/3 ML INHALATION SCH ×4 (07:00→19:11)
[2016-07-30] MEDS: traMADol 50 MG TAB PO SCH ×4 (07:27→20:58)
[2016-07-30] MEDS: HEPARIN SODIUM,PORCINE 5,000 UNIT/ML 1 ML VIAL SQ SCH ×2 (07:46→20:18)
[2016-07-30] MEDS: metFORMIN 500 MG TAB PO SCH ×2 (07:47→20:19)
[2016-07-30] MEDS: amLODIPine 10 MG TAB PO SCH (07:48)
[2016-07-30 08:00] LABS: Glucose,Whole Blood 106 mg/dL (75-99)
[2016-07-30] MEDS: INSULIN LISPRO (humaLOG) 300 UNIT/3 ML VIAL SQ SCH ×4 (08:00→20:19)
--- NOTE | 2016-07-30 12:06 | PN ---
Patient is doing somewhat better a little less pain. He had no fevers throughout the night. The vital signs remained normal. At this period of time, all cultures were reviewed including the anaerobic and aerobic from the buttocks culture and also blood culture and urine culture and no results or positive findings have returned yet. His I's and O's and input and output are adequate. His weight remains the same. His medications at this point are still: 1. Hydrocodone. 2. [place] 10 q4 hours for pain. 3. Albuterol updrafts 4 times a day p.r.n. 4. Allopurinol 500 daily. 5. Amlodipine 10 daily. 6. He is on 1 gm Rocephin q.12. 7. Neurontin 300 mg at bedtime. 8. He is on heparin protocol. 9. Insulin to scale. 10. Metformin 500 mg b.i.d. 11. Ultram 100 mg q.i.d. 12. Vancomycin. REVIEW OF SYSTEMS: CARDIOPULMONARY: No shortness of breath. No chest pain, orthopnea, no paroxysmal nocturnal dyspnea. GI: No hematemesis, melena, hematochezia. He is obese. : Normal urination. NEUROMUSCULAR: Just the pain in the left buttocks with open area lesion. He also has: MUSCULOSKELETAL: With lower back pain. PSYCHIATRIC: Depression, little anxious. He does have anxiety. Endocrine does have fatigue and weight stays the same. Social history is unchanged. FAMILY HISTORY AND SOCIAL HISTORY: Unchanged. PHYSICAL EXAM: At this point, he has a blood pressure of 130/60, heart rates in the 70s, temperature 98. EYES: Pupils are equal, round, react to light and accommodation. ENT: Showed tympanic membranes and pharynx to be negative. Neck is supple with midline trachea. CHEST: Essentially clear to auscultation. HEART: Sinus rhythm with no murmur. ABDOMEN: Obese, soft, nontender, with no organomegaly. Left buttocks lesion is still some excoriated no smelly appearance. There is induration and redness. Lower extremity pulses are present. Lower back incision appears clean. Negative Florence sign. ASSESSMENT: 1. Left buttocks cellulitis and induration from a previous bed ulcer status post back surgery 07/07/2011. 2. Chronic obstructive pulmonary disease. 3. Type 2 diabetes. 4. Morbid obesity. 5. Generalized arthritis. PLAN: Continue same IV antibiotics appropriately comfort care and await on culture results. Prognosis still guarded.
[2016-07-30 12:11] LABS: Glucose,Whole Blood 100 mg/dL (75-99)
[2016-07-30 18:01] LABS: Glucose,Whole Blood 99 mg/dL (75-99)
[2016-07-30] MEDS: ALLOPURINOL 300 MG TAB PO SCH (20:18)
[2016-07-30] MEDS: GABAPENTIN 300 MG CAP PO SCH (20:19)
[2016-07-30 20:22] LABS: Glucose,Whole Blood 134 mg/dL (75-99)
[2016-07-31] MEDS: SODIUM CHLORIDE 0.9% 1,000 ML IV SCH ×2 (03:10→12:46)
[2016-07-31] MEDS: HYDROcodone/APAP 10-325MG 1 EACH TAB PO PRN ×4 (06:19→17:49)
[2016-07-31] MEDS: HEPARIN SODIUM,PORCINE 5,000 UNIT/ML 1 ML VIAL SQ SCH ×2 (07:15→20:05)
[2016-07-31] MEDS: traMADol 50 MG TAB PO SCH ×4 (07:15→21:53)
[2016-07-31] MEDS: metFORMIN 500 MG TAB PO SCH ×2 (07:15→20:05)
[2016-07-31] MEDS: amLODIPine 10 MG TAB PO SCH (07:16)
[2016-07-31 07:33] LABS: Anion Gap 8 mmol/L; Blood Urea Nitrogen 16 mg/dL (9-20); Calcium 9.1 mg/dL (8.4-10.2); Carbon Dioxide 27 mmol/L (22-30); Chloride 104 mmol/L (98-107); Glucose 99 mg/dL (74-99); Non-African American GFR(MDRD) >60 (>60 ml/min/1.73 sqM); Potassium 4.3 mmol/L (3.5-5.1); Sodium 139 mmol/L (137-145)
[2016-07-31 07:43] LABS: Glucose,Whole Blood 108 mg/dL (75-99)
[2016-07-31] MEDS: ALBUTEROL NEBULIZED 2.5 MG/3 ML INHALATION SCH ×4 (07:57→20:32)
[2016-07-31] MEDS: INSULIN LISPRO (humaLOG) 300 UNIT/3 ML VIAL SQ SCH ×4 (08:12→20:51)
[2016-07-31] MEDS: VANCOMYCIN 2,000 MG in SODIUM CHLORIDE 0.9% 500 ML IVPB SCH (08:13)
[2016-07-31 11:39] LABS: Glucose,Whole Blood 99 mg/dL (75-99)
--- NOTE | 2016-07-31 16:33 | PN ---
Again, a 55-year-old white male that came in with an indurated infected previous bedsore that progressed induration infection after being released to the nurse at which time he was seen in my office and placed in the hospital accordingly. He has been cultured up with blood cultures, wound cultures and urine culture, and at this time of the day which is 9:30 a.m. 07/31/2016 there are no results positive yet. He has actually felt good. He says he has less discomfort. REVIEW OF SYSTEMS: CARDIOPULMONARY: No shortness of breath or chest pain, orthopnea, no paroxysmal nocturnal dyspnea. GI: No hematemesis. No melena or hematochezia. No diarrhea. No constipation. : He has been able to urinate freely. NEUROMUSCULAR: He says he still some decreased strength in his arms and his leg but that is from his back surgery, but actually he says he feels stronger today. Skin changes just on his buttocks, nothing else noted. PSYCHIATRIC: He is anxious but no depression. Family history, social history is unchanged. LABORATORY: This morning, basically shows a 139 sodium, potassium of 4.3, 104 chloride, 27 CO2 and his insulin to scale is fine. His creatinine is also stable 0.8 with a BUN of 16. Medications. He is still on: 1. Rocephin 1 gram q.12. 2. Gabapentin 300 mg once a day. 3. [place] 10/325 every 4 to 6 hours p.r.n. pain. 4. He is on heparin 5000 subcu q.12. 5. Metformin 500 b.i.d. 6. He also has tramadol up to 4 times a day. 7. Vancomycin 2 grams every 16 hours. 8. Norvasc 10 mg a day. 9. Zyloprim 300 daily. 10. Albuterol updrafts up to 4 times a day. 11. He also has silver optic applied to his buttock with a closed dressing. Vital signs: He is well orientated to person, place, and thing. He seems to be in a good mood today. Blood pressure of 128/61, heart rate in the 70s, respiratory rate is 16, temperature normal 97.9. EYES: Pupils are equal, round, react to light and accommodation. ENT: Showed tympanic membranes and pharynx to be negative. Neck is supple. Midline trachea. CHEST: Essentially clear to auscultation. HEART: Sinus rhythm. ABDOMEN: Soft, nontender, with no organomegaly, but very obese. Left buttocks area induration is much smaller and in size as is the erythema. The smell of purulence is ( ) and cultures yet are still negative at this period of time. ASSESSMENT: 1. Left buttock cellulitis and induration from previous bed ulcer status post back surgery number two of 07/07/2011. 2. Moderate chronic obstructive pulmonary disease which is stable. 3. Type 2 diabetes. 4. Morbid obesity. 5. Gout. 6. Generalized osteoarthritis. We will continue IV antibiotics and Opti care. We are still awaiting cultures. Will follow Dr. Dominguez lead.
[2016-07-31 17:19] LABS: Glucose,Whole Blood 95 mg/dL (75-99)
[2016-07-31] MEDS: GABAPENTIN 300 MG CAP PO SCH (20:05)
[2016-07-31] MEDS: ALLOPURINOL 300 MG TAB PO SCH (20:05)
[2016-07-31 20:34] LABS: Glucose,Whole Blood 131 mg/dL (75-99)
[2016-07-31] MEDS ORDERED: VANCOMYCIN TROUGH DUE 1 EACH MISC MISCELLANE ONE (23:00)
[2016-08-01] MEDS: VANCOMYCIN 2,000 MG in SODIUM CHLORIDE 0.9% 500 ML IVPB SCH (00:41)
[2016-08-01] MEDS: HYDROcodone/APAP 10-325MG 1 EACH TAB PO PRN ×2 (04:51→10:17)
[2016-08-01 07:11] LABS: Glucose,Whole Blood 98 mg/dL (75-99)
[2016-08-01] MEDS: ALBUTEROL NEBULIZED 2.5 MG/3 ML INHALATION SCH ×3 (07:31→15:52)
[2016-08-01] MEDS: SODIUM CHLORIDE 0.9% 1,000 ML IV SCH ×2 (08:06→17:18)
[2016-08-01] MEDS: INSULIN LISPRO (humaLOG) 300 UNIT/3 ML VIAL SQ SCH ×2 (08:08→11:41)
[2016-08-01 08:09] VITALS: BP 134/76; RESP 16; TEMP 98.2
[2016-08-01] MEDS: metFORMIN 500 MG TAB PO SCH (08:10)
[2016-08-01] MEDS: HEPARIN SODIUM,PORCINE 5,000 UNIT/ML 1 ML VIAL SQ SCH (08:10)
[2016-08-01] MEDS: amLODIPine 10 MG TAB PO SCH (08:10)
[2016-08-01] MEDS: traMADol 50 MG TAB PO SCH ×2 (11:12→12:31)
[2016-08-01 11:41] LABS: Glucose,Whole Blood 120 mg/dL (75-99)
--- NOTE | 2016-08-01 15:59 | P.PN ---
Subjective Principal diagnosis: cellulitis of buttocks This is a 55-year-old male who was admitted on July 06 and underwent a posterior lateral decompression and fusion of the lumbar spine due to degenerative scoliosis, asymmetrical degenerative disc disease and severe spinal stenosis. ID was consulted during his hospitalization due to a wound to the left buttocks which appeared the day following surgery. This appeared to be a friction type wound. Patient was stabilized and was discharged to [facility]. Patient states he did well there and was discharged from rehab 2 days ago. He had an appointment with Dr. Hughes yesterday and once he took a look at the wound on his buttocks, patient was sent in as a direct admission to the [facility]. Patient has been started on ceftriaxone and Levaquin. Patient states his back is a little bit sore and he also has soreness and numbness to the left buttocks at the site of the wound. Patient denies having any fevers and he has been afebrile since admission. His appetite has been good and he has been having bowel movements. He denies any difficulty urinating. Overall he states that the back pain is improved since surgery although he still has some soreness to the site. WBC is 6.5, GFR greater than 60 and albumin 3.7. Blood culture and urine culture are status received. Patient is now considerably improved. Pain and discomfort have improved. He has had spinal surgery and is now able to stand unassisted as his back pain is improving. Overall his other new complaints. No fevers shows regular sweats. Anxious for discharge home. Objective - Vital Signs Vital signs: Vital Signs Temp 98.2 F 08/01/16 07:00 Pulse 80 08/01/16 11:30 Resp 16 08/01/16 07:00 BP 134/76 08/01/16 07:00 Pulse Ox 96 08/01/16 07:32 Intake & Output 07/31/16 08/01/16 08/01/16 18:59 06:59 18:59 Intake Total 8634 454 1957 Output Total 1 Balance 9903 304 3137 Weight 148.325 kg Intake: IV 525 650 Sodium Chloride 0.9% 1, 525 650 000 ml @ 75 mls/hr IV . [id number] [facility] Rx#:[id number] Intake, IV Titration 600 600 Amount Vancomycin 2,000 mg In 500 500 Sodium Chloride 0.9% 500 ml @ 167 mls/hr IVPB Q16H [facility] Rx#:[id number] cefTRIAXone 1,000 mg In 100 100 Sodium Chloride 0.9% 50 ml @ 100 mls/hr IVPB Q12HR [facility] Rx#:[id number] Oral 480 100 950 Output: Stool 1 Other: Voiding Method Toilet Toilet Toilet # Voids 3 1 4 - Exam en: This is a morbidly obese 55-year-old male. He is seen sitting in a chair and has noted difficulty getting to a standing position. HEENT: Head is atraumatic, normocephalic. Pupils equal, round. Sclerae is anicteric. Conjunctiva pink. Because members of the mouth are moist. No thrush noted. Dentition is in poor order. NECK: Supple. No JVD. No lymphadenopathy. No thyromegaly. LUNGS: Clear to auscultation. No wheezes or rhonchi. No intercostal retractions. HEART: Regular rate and rhythm. No murmur. ABDOMEN: Distended. Bowel sounds are present. No masses. No tenderness. BACK: Improved no drainage from the recent incision EXTREMITIES: +1 pedal edema. No calf tenderness. There is a pressure ulcer to the left buttocks. This is showing marked improvement. The significant secondary cellulitis is also improved. Some residual erythema right at the edge of the buttocks is still noted. However the tenderness is generally resolved. He is feeling well. NEUROLOGICAL: Patient is awake, alert and oriented x3. Has significant cranial nerve VIII defects - Labs CBC & Chem 7: 07/28/16 19:23 07/31/16 06:54 Labs: Abnormal Lab Results - Last 24 Hours (Table) 07/31/16 08/01/16 Range/Units 20:32 11:40 POC Glucose (mg/dL) 131 H 120 H (75-99) mg/dL Microbiology - Last 24 Hours (Table) 07/29/16 12:00 Anaerobic Culture - Preliminary Buttock 07/28/16 19:32 Blood Culture - Preliminary Blood No Growth after 72 hours 07/28/16 19:23 Blood Culture - Preliminary Blood No Growth after 72 hours 07/29/16 08:55 Gram Stain - Final Buttock Wound Culture - Final Laboratory Results WBC 6.5 k/uL (3.8-10.6) 07/28/16 19:23 RBC 3.11 m/uL (4.30-5.90) L 07/28/16 19:23 Hgb 9.5 gm/dL (13.0-17.5) L 07/28/16 19:23 Hct 29.2 % (39.0-53.0) L 07/28/16 19:23 MCV 94.0 fL (80.0-100.0) 07/28/16 19:23 MCH 30.5 pg (25.0-35.0) 07/28/16 19:23 MCHC 32.4 g/dL (31.0-37.0) 07/28/16 19:23 RDW 13.5 % (11.5-15.5) 07/28/16 19:23 Plt Count 314 k/uL (150-450) 07/28/16 19:23 Neutrophils % 65 % 07/28/16 19:23 Lymphocytes % 22 % 07/28/16 19:23 Monocytes % 6 % 07/28/16 19:23 Eosinophils % 4 % 07/28/16 19:23 Basophils % 1 % 07/28/16 19:23 Neutrophils # 4.2 k/uL (1.3-7.7) 07/28/16 19:23 Lymphocytes # 1.4 k/uL (1.0-4.8) 07/28/16 19:23 Monocytes # 0.4 k/uL (0-1.0) 07/28/16 19:23 Eosinophils # 0.3 k/uL (0-0.7) 07/28/16 19:23 Basophils # 0.0 k/uL (0-0.2) 07/28/16 19:23 Hypochromasia Slight 07/28/16 19:23 ESR 63 mm/hr (0-15) H 07/28/16 19:23 Sodium 139 mmol/L (137-145) 07/31/16 06:54 Potassium 4.3 mmol/L (3.5-5.1) 07/31/16 06:54 Chloride 104 mmol/L (98-107) 07/31/16 06:54 Carbon Dioxide 27 mmol/L (22-30) 07/31/16 06:54 Anion Gap 8 mmol/L 07/31/16 06:54 BUN 16 mg/dL (9-20) 07/31/16 06:54 Creatinine 0.80 mg/dL (0.66-1.25) 07/31/16 06:54 Est GFR (MDRD) Af Amer >60 (>60 ml/min/1.73 sqM) 07/31/16 06:54 Est GFR (MDRD) Non-Af >60 (>60 ml/min/1.73 sqM) 07/31/16 06:54 Glucose 99 mg/dL (74-99) 07/31/16 06:54 POC Glucose (mg/dL) 120 mg/dL (75-99) H 08/01/16 11:40 POC Glu [place] Mixer Deysi Mayo 08/01/16 11:40 Calcium 9.1 mg/dL (8.4-10.2) 07/31/16 06:54 Total Bilirubin 0.4 mg/dL (0.2-1.3) 07/28/16 19:23 AST 28 U/L (17-59) 07/28/16 19:23 ALT 40 U/L (21-72) 07/28/16 19:23 Alkaline Phosphatase 117 U/L (38-126) 07/28/16 19:23 Total Protein 6.4 g/dL (6.3-8.2) 07/28/16 19:23 Albumin 3.7 g/dL (3.5-5.0) 07/28/16 19:23 Vancomycin Trough 11.7 ug/mL 07/31/16 22:40 Microbiology 07/29/16 12:00 Buttock Anaerobic Culture - Preliminary 07/28/16 19:32 Blood Blood Culture - Preliminary No Growth after 72 hours 07/28/16 19:23 Blood Blood Culture - Preliminary No Growth after 72 hours 07/29/16 08:55 Buttock Gram Stain - Final 07/29/16 08:55 Buttock Wound Culture - Final 07/28/16 00:23 Urine,Clean Catch Urine Culture - Final Assessment and Plan (1) Pressure ulcer of buttock Status: Acute (2) Cellulitis of buttock, left Narrative/Plan: Pleasant 55-year-old male with a history of significant degenerative joint disease of the spine as well as other joints is status post lumbar laminectomy. Surgery has gone relatively well. But has developed a pressure ulceration to his left buttocks. He is now showing marked improvement. he developed a cellulitis in that area which has responded very well to antibiotic therapy. Physical he is ready for discharge to home. The combination of cefuroxime Bactrim utilize for therapy for home. Follow up in the office to be still having issues at the end of this therapy. Local wound care is at the alginate dressing was changed 3 times a week. Orders for home care were given. Status: Acute
[2016-08-01 16:03] VITALS: PULSE 74
--- NOTE | 2016-08-02 09:22 | DS ---
DATE OF ADMISSION: 07/28/2016 DATE OF DISCHARGE: 08/01/2016 A 55-year-old white male that was just discharged from [facility] post back surgery who had an initial small bedsore on his left buttocks. After leaving [facility] he came to see me in my office. He had a large indurated left buttocks that was very erythematous with some ulceration and was evidenced that he had had silver OpSite on it. Due to the severity of what appeared to be infection, the patient was placed in the hospital accordingly. He was initially started on Rocephin 1 gram every [address] Dominguez put him on vancomycin. He had anaerobic culture done on 07/29 of the wound done on 07/29/16 and we are still awaiting the results. At this time he is feeling much better. He has minimal discomfort. No discomfort. He feels good and wants to be discharged. REVIEW OF SYSTEMS: CARDIOPULMONARY: No chest pain. No orthopnea. No paroxysmal nocturnal dyspnea. GI: No hematemesis, melena, hematochezia. No diarrhea. No constipation. : He has been able to urinate freely. NEUROMUSCULAR: He still has decreased strength in his legs but this is from pre and post back surgery, but he actually feels stronger today and is able to walk. Skin changes on his buttocks as previously. PSYCHIATRIC: He is anxious, but there is no depression. FAMILY HISTORY AND SOCIAL HISTORY: Unchanged. There is no new lab today. His previous BUN was 16 and creatinine was 0.7. PHYSICAL EXAMINATION: VITAL SIGNS: Blood pressure is 128/80, heart rates in the 70s, respiratory rate is 18, temperature is 97. EYES: Pupils are equal, round, react to light and accommodation. ENT: Showed tympanic membranes and pharynx to be negative. Neck is supple. Midline trachea. CHEST: Essentially clear to auscultation. HEART: Sinus rhythm. ABDOMEN: Soft, nontender, with no organomegaly, is very obese. Left buttocks, he has the area of induration that is much smaller in size than it was previously with minimal erythema. There is no smell or purulence. The OpSite and dressing is present. IMPRESSION: 1. Left buttocks cellulitis and induration originally from small bedsore. 2. Moderate chronic obstructive pulmonary disease. 3. Type 2 diabetes. 4. Just recent lumbar spine surgery with Dr. Gonzales on 07/06. 5. Morbid obesity. 6. Gout. 7. Generalized osteoarthritis. PLAN: We will continue IV antibiotics and OpSite. We are going to call for the results of the anaerobic culture today and plans will be made for outpatient antibiotics. He will also stay on his hydrocodone 10 every 4 hours. He takes albuterol updrafts or inhaler up to 4 times a day. Zyloprim 300 mg daily, amlodipine 10 mg a day. He is on obviously his 1 gram of Rocephin every 12 hours and he is still on vancomycin, but will wait for the culture results. Neurontin 300 mg at bedtime. Will discontinue his subcutaneous heparin. He is on insulin to scale here but that will be DC'd. We will keep him on metformin 500 mg b.i.d. His activity will be walked. Will have home care to help with the OpSite care and I will follow up with him accordingly.
== END 2016-08-01 18:00 | disposition home health service (06) | DRG 603 ==
LOC: 5MS5E 17:40
PROVIDERS: ADMIT Family Medicine; ATTEND Family Medicine
DX: L03.317 Cellulitis of buttock (principal); E11.40 Type 2 diabetes mellitus with diabetic neuropathy, unspecified; E66.01 Morbid (severe) obesity due to excess calories; M41.9 Scoliosis, unspecified; I10 Essential (primary) hypertension; E78.5 Hyperlipidemia, unspecified; H91.90 Unspecified hearing loss, unspecified ear; J44.9 Chronic obstructive pulmonary disease, unspecified; M10.9 Gout, unspecified; M15.9 Polyosteoarthritis, unspecified; M48.06 Spinal stenosis, lumbar region; Z68.41 Body mass index [BMI] 40.0-44.9, adult; Z79.84 Long term (current) use of oral hypoglycemic drugs; Z79.899 Other long term (current) drug therapy; Z87.891 Personal history of nicotine dependence; Z98.1 Arthrodesis status; Z96.642 Presence of left artificial hip joint; Z82.49 Family history of ischemic heart disease and other diseases of the circulatory system
CPT/HCPCS: 80048; 80053; 80202; 85025; 85652; 87040; 87070; 87075; 87086; 87205; 94640; 94760

== ENCOUNTER → 2017-07-22 | Outpatient (CLI) | payer OTHER, MEDICARE ==
--- NOTE | 2017-07-22 15:38 | MR ---
EXAMINATION TYPE: MR knee LT wo con DATE OF EXAM: 07/22/2017 COMPARISON: NONE HISTORY: Pain in left knee TECHNIQUE: Multiplanar, multisequence images of the knee is performed without IV contrast. FINDINGS: MEDIAL MENISCUS: Complex tear posterior horn medial meniscus. LATERAL MENISCUS: Anterior and posterior horns are intact without tear. CRUCIATE LIGAMENTS: The anterior and posterior cruciate ligaments are intact and unremarkable. COLLATERAL LIGAMENTS: The medial collateral ligament and lateral collateral ligament complex are inta ct and unremarkable. EXTENSOR MECHANISM: Visualized quadriceps and patellar tendons are intact. EFFUSION: Moderate joint effusion noted. POPLITEAL CYST: No popliteal/flores cyst. TRICOMPARTMENT SPACES: Severe narrowing noted greatest involving the patellofemoral joint space. Subc hondral edema and cyst formation noted. Cartilaginous thinning noted. Multi compartmental bone spur s een. BONE MARROW SIGNAL: Bone marrow edema medial tibial plateau. OTHER: No additional significant abnormality is appreciated. IMPRESSION: 1. Complex tear posterior horn medial meniscus. 2. Moderately severe multicompartmental degenerative joint disease. 3. Joint effusion.
== END | disposition home or self-care (01) ==
LOC: RADMRIMAIN 14:47
PROVIDERS: ATTEND Orthopaedic Surgery
DX: S83.242A Other tear of medial meniscus, current injury, left knee, initial encounter (principal); M17.12 Unilateral primary osteoarthritis, left knee; E11.9 Type 2 diabetes mellitus without complications

== ENCOUNTER 2018-02-18 13:09 | Inpatient (IN) | payer OTHER, MEDICARE ==
[2018-02-18] MEDS ORDERED: ALBUTEROL NEBULIZED 2.5 MG/3 ML INHALATION STA (13:23)
[2018-02-18] MEDS ORDERED: IPRATROPIUM 0.5 MG/2.5 ML NEBU INHALATION STA (13:23)
--- NOTE | 2018-02-18 14:38 | ED ---
General Adult HPI - General Chief complaint: Shortness of Breath Stated complaint: Sob Source: patient, EMS Mode of arrival: EMS - Related Data Home Medications Medication Instructions Recorded Confirmed Enalapril/Hydrochlorothiazide 1 tab PO BID 11/11/13 02/18/18 [Vaseretic 10-25 mg] metFORMIN HCL [Glucophage] 500 mg PO BID 11/11/13 02/18/18 Allopurinol [Zyloprim] 300 mg PO HS 02/03/14 02/18/18 amLODIPine/ATORVASTATIN [Caduet 10 1 tab PO HS 02/03/14 02/18/18 mg-40 mg Tablet] HYDROcodone/APAP 10-325MG [[place] 1 tab PO Q4H PRN 07/28/16 02/18/18 10] Escitalopram [Lexapro] 10 mg PO DAILY 02/18/18 02/18/18 Sulindac [Clinoril] 200 mg PO BID 02/18/18 02/18/18 predniSONE 10 mg PO HS 02/18/18 02/18/18 predniSONE 20 mg PO DAILY 02/18/18 02/18/18 Allergies Allergy/AdvReac Type Severity Reaction Status Date / Time No Known Allergies Allergy Verified 02/18/18 13:37 Review of Systems ROS Statement: Those systems with pertinent positive or pertinent negative responses have been documented in the HPI. ROS Other: All systems not noted in ROS Statement are negative. Past Medical History Past Medical History: Diabetes Mellitus, Hyperlipidemia, Hypertension, Osteoarthritis (OA) Additional Past Medical History / Comment(s): neuropathy, SCOLIOSIS,LUMBAR SPINAL STENOSIS(HAD SX) History of Any Multi-Drug Resistant Organisms: None Reported Past Surgical History: Joint Replacement, Orthopedic Surgery, Tonsillectomy Additional Past Surgical History / Comment(s): right hip replaced, b/l shoulder surg., right foot surg, posterior lateral decompression and fusion lumbar spine. Past Anesthesia/Blood Transfusion Reactions: No Reported Reaction Past Psychological History: No Psychological Hx Reported Smoking Status: Former smoker Past Alcohol Use History: None Reported Past Drug Use History: None Reported - Past Family History Mother Family Medical History: Myocardial Infarction (SD) Additional Family Medical History / Comment(s): CARDIAC STENTS Course Vital Signs 02/18/18 02/18/18 02/18/18 13:14 13:25 13:30 Temperature 98.2 F Pulse Rate 75 75 Respiratory 25 H Rate Blood Pressure 156/82 O2 Sat by Pulse 91 L 95 Oximetry 02/18/18 02/18/18 02/18/18 13:46 13:47 15:39 Temperature Pulse Rate 76 98 Respiratory 22 22 18 Rate Blood Pressure 136/72 157/80 O2 Sat by Pulse 97 96 Oximetry Medical Decision Making - Medical Decision Making Dictation was produced using [employer] dictation software. please excuse any grammatical, word or spelling errors. Chief Complaint: 57-year-old male with past medical history bronchitis transferred via EMS by [facility] for acute dyspnea. History of Present Illness: Patient is 57-year-old male who reports no significant past medical history presents via EMS for dyspnea. Patient was evaluated today where he was diagnosed with tentative diagnosis of COPD exacerbation. Patient denies any history of COPD. He does have a [id number] smoking history. Patient does not smoke anymore. Given breathing treatments and placed on BiPAP and transferred. He is oriented d-dimer but don't have CT imaging. She is given antibiotics. Given multiple breathing treatments. Patient was also given Lovenox. There was a BUN is performed showing a pH of 7.3, CO2 of 50 and pO2 of 74.6. The ROS documented in this emergency department record has been reviewed and confirmed by me. Those systems with pertinent positive or negative responses have been documented in the HPI. All other systems are other negative and/or noncontributory. PHYSICAL EXAM: General Impression: Alert and oriented x3, not in acute distress, morbidly obese HEENT: Normocephalic atraumatic, extra-ocular movements intact, pupils equal and reactive to light bilaterally, mucous membranes moist. Cardiovascular: Heart regular rate and rhythm, S1&S2 audible, no murmurs, rubs or gallops Chest: Diffuse lung wheezing Abdomen: Bowel sounds present, abdomen soft, non-tender, non-distended, no organomegaly Musculoskeletal: Pulses present and equal in all extremities, no peripheral edema Motor: Power 5/5 bilaterally, no focal deficits noted Neurological: CN II-XII grossly intact, no focal motor or sensory deficits noted Skin: Intact with no visualized rashes Psych: Normal affect and mood ED course: 57 year old obese male presents with shortness of breath. Transferred via EMS from [facility]. Vital signs upon arrival are within acceptable limits. Patient has respiratory rate 22. Patient's breathing appears to be nonlabored he is however wheezy. Patient is tolerating supplement oxygen and not being on BiPAP. Laboratory evaluation and Imaging were reviewed from transferring facility. CT angios the chest was obtained showing no acute processes. Clinical presentation consistent with COPD versus asthma exacerbation. Patient given duo nebs. Patient had received steroids and antibiotics from transferring facility. He also did receive magnesium. Patient be admitted inpatient for status asthmaticus versus severe COPD exacerbation. Disposition Clinical Impression: Asthma exacerbation Disposition: ADMITTED IP TO THIS HOSP Condition: Fair Referrals: Buster Dias MD [Primary Care Provider] - 1-2 days Decision Time: 16:35
--- NOTE | 2018-02-18 16:01 | CT ---
EXAMINATION TYPE: CT angio chest DATE OF EXAM: 02/18/2018 3:24 PM COMPARISON: 06/06/2016 HISTORY: SOB CT DLP: 1128.6 mGycm Automated exposure control for dose reduction was used. CONTRAST: CTA scan of the thorax is performed with IV Contrast, patient injected with 100 mL of Isovue 370, pul monary embolism protocol. There are 3-D post processed images.. FINDINGS: There is some patchy atelectasis at the lung bases. There is no pleural effusion. There is no pericar dial effusion. Heart size is normal. Thoracic aorta is intact without evidence of aneurysm or dissect ion. There is no mediastinal adenopathy. There are no hilar masses. There is normal contrast opacification of the pulmonary arteries. I see no filling defects. The bony thorax is intact. There is degenerative spurring in the thoracic spine. IMPRESSION: NO EVIDENCE OF PULMONARY EMBOLISM. MILD PATCHY ATELECTASIS AT THE LUNG BASES.
[2018-02-18] MEDS ORDERED: INSULIN ASPART 100 UNIT/ML 1 ML 10 ML VIAL SQ PRN (16:54)
--- NOTE | 2018-02-18 16:54 | P.HPIM ---
History of Present Illness H&P Date: 02/18/18 Chief Complaint: Shortness of breath, transferred from [place] The patient is a morbidly obese 57-year-old male with a past medical history of type 2 diabetes with peripheral neuropathy, essential hypertension, gout, former smoker, chronic lower back pain who presents to the ER after being transferred here from [place]. Apparently the patient presented there earlier today with chief complaints of progressive worsening shortness of breath and difficulty breathing over the last month, patient previously seen by his PCP Dr. Dias and treated for acute bronchitis with antibiotics and steroid therapy , over the last few days the patient has recently gotten worse and complains of significant wheezing and productive cough of yellow-green sputum, the patient has a past medical history of smoking 40+-pack-year history but has not smoked in the last 2 years. The patient has been taking breathing treatments 2-4 times a day without any significant improvement/ the patient does report pleuritic chest pain on the left side of his chest and back that is only worsened with coughing. The patient has previously had pleurisy reports his symptoms are similar to his previous occurrence. The patient does have some lower extremity swelling and reports some orthopnea. The patient reports of lightheadedness and dizziness and headaches, denies any palpitations, reports subjective fevers chills night sweats. He denies any nausea vomiting diarrhea, the patient denies sick contacts. Review of records indicates the patient had several breathing treatments after presenting with oxygen saturations in the mid 70s, he was placed on BiPAP and started on Solu-Medrol and given a dose of doxycycline. ABG done at [place] confirmed acute respiratory failure with hypoxemia 7.37/51/75/93, chest x-ray showed no obvious infiltrate only enlarged cardiac silhouette. The patient was noted to have elevated d-dimer and was given a therapeutic dose of Lovenox and transferred here to have a CTA which was negative for acute PE but did show patchy atelectasis of the lung bases. Influenza A and B was negative, troponin was less than 0.05, BNP 31. EKG was negative for any suggestion of ischemia, blood pressure was 160/93. Patient was recommended for admission for acute respiratory failure due to COPD exacerbation Review of Systems Pertinent positives per HPI all other review of systems otherwise negative Past Medical History Past Medical History: Diabetes Mellitus, Hyperlipidemia, Hypertension, Osteoarthritis (OA) Additional Past Medical History / Comment(s): neuropathy, SCOLIOSIS,LUMBAR SPINAL STENOSIS(HAD SX) History of Any Multi-Drug Resistant Organisms: None Reported Past Surgical History: Joint Replacement, Orthopedic Surgery, Tonsillectomy Additional Past Surgical History / Comment(s): right hip replaced, b/l shoulder surg., right foot surg, posterior lateral decompression and fusion lumbar spine. Past Anesthesia/Blood Transfusion Reactions: No Reported Reaction Past Psychological History: No Psychological Hx Reported Smoking Status: Former smoker Past Alcohol Use History: None Reported Past Drug Use History: None Reported - Past Family History Mother Family Medical History: Myocardial Infarction ([place]) Additional Family Medical History / Comment(s): CARDIAC STENTS Medications and Allergies Home Medications Medication Instructions Recorded Confirmed Type Enalapril/Hydrochlorothiazide 1 tab PO BID 11/11/13 02/18/18 History [Vaseretic 10-25 mg] metFORMIN HCL [Glucophage] 500 mg PO BID 11/11/13 02/18/18 History Allopurinol [Zyloprim] 300 mg PO HS 02/03/14 02/18/18 History amLODIPine/ATORVASTATIN [Caduet 10 1 tab PO HS 02/03/14 02/18/18 History mg-40 mg Tablet] HYDROcodone/APAP 10-325MG [[place] 1 tab PO Q4H PRN 07/28/16 02/18/18 History 10] Escitalopram [Lexapro] 10 mg PO DAILY 02/18/18 02/18/18 History Sulindac [Clinoril] 200 mg PO BID 02/18/18 02/18/18 History predniSONE 10 mg PO HS 02/18/18 02/18/18 History predniSONE 20 mg PO DAILY 02/18/18 02/18/18 History Allergies Allergy/AdvReac Type Severity Reaction Status Date / Time No Known Allergies Allergy Verified 02/18/18 13:37 Physical Exam Vitals: Vital Signs Temp Pulse Resp BP Pulse Ox 02/18/18 15:39 98 18 157/80 96 02/18/18 13:47 22 02/18/18 13:46 76 22 136/72 97 02/18/18 13:30 75 02/18/18 13:25 95 02/18/18 13:14 98.2 F 75 25 H 156/82 91 L Intake and Output 02/18/18 02/18/18 02/18/18 06:59 14:59 22:59 Other: Weight 171.8 kg Constitutional: Mild to moderate respiratory distress appears diaphoretic currently on BiPAP, conversant, pleasant Eyes: Anicteric sclerae, moist conjunctiva, no lid-lag, PERRLA ENMT: NC/AT,Oropharynx clear, no erythema, exudates Neck:Supple, FROM, no masses, or JVD, No carotid bruits; No thyromegaly Lungs: Biphasic wheezes, diminished in the bases, Clear to percussion, no accessory muscle use on BiPAP FiO2 of 45% Cardiovascular: Heart regular in rate and rhythm, No murmurs, gallops, or rubs no peripheral edema Abdominal: Soft Nontender, nom distended, no guarding, no rebound or rigidity, Normoactive bowel sounds No hepatomegaly, No splenomegaly, No palpable mass No abdominal wall hernia noted Skin: Normal temperature, tone, texture, turgor, No induration No subcutaneous nodules, No rash, lesions, No ulcers Extremities:No digital cyanosis No clubbing, Pedal pulses intact and symmetrical Radial pulses intact and symmetrical Normal gait and station, No calf tenderness Psychiatric: Alert and oriented to person, place and time, Appropriate affect Intact judgement Neuro: Muscles Strength 5/5 in all 4 extremities, Sensation to light touch grossly present throughout, Cranial nerves II-XII grossly intact. No focal sensory deficits Assessment and Plan Assessment: Current medical conditions Morbid obesity Gout Osteoarthritis Degenerative disc disease status post lumbar fusion Chronic pain (1) Acute respiratory failure with hypoxemia Current Visit: No Status: Acute Code(s): J96.01 - ACUTE RESPIRATORY FAILURE WITH HYPOXIA SNOMED Code(s): 897730775 (2) COPD with acute exacerbation Current Visit: No Status: Acute Code(s): J44.1 - CHRONIC OBSTRUCTIVE PULMONARY DISEASE W (ACUTE) EXACERBATION SNOMED Code(s): 410822870 (3) Accelerated hypertension Current Visit: No Status: Acute Code(s): I10 - ESSENTIAL (PRIMARY) HYPERTENSION SNOMED Code(s): 45606408 (4) Acute tracheobronchitis Current Visit: No Status: Acute Code(s): J20.9 - ACUTE BRONCHITIS, UNSPECIFIED SNOMED Code(s): 14685792 (5) Type 2 diabetes mellitus with hyperglycemia Current Visit: No Status: Acute Code(s): E11.65 - TYPE 2 DIABETES MELLITUS WITH HYPERGLYCEMIA SNOMED Code(s): 911930510929527 Plan: The patient is admitted to the ICU anticipated greater than 2 midnight stay with acute respiratory failure with hypoxemia likely secondary to underlying acute COPD exacerbation complicated by acute tracheobronchitis. Patient placed on BiPAP with settings 12/12 FiO2 45%, will repeat ABG, CT negative for acute PE showing mild patchy atelectasis of the lung bases. Initiate scheduled and when necessary bronchodilator DuoNeb breathing treatments along with systemic steroids IV Solu-Medrol and perforomist, Mucinex and IV antibiotic therapy with Levaquin. We'll consult pulmonary for further recommendations. The patient is noted to have elevated blood pressure we'll resume his home antihypertensive regimen and continue to monitor his blood pressures closely. As the patient is on steroids and is type 2 diabetes we'll cover with correctional scale insulin coverage and check a hemoglobin A1c. The patient is placed on DVT and GI prophylaxis with Lovenox and Protonix respectively. We'll continue to monitor his clinical course CODE STATUS full code Discussed plan of care with patient and his Anticipated discharge 2-3 days
[2018-02-18] MEDS ORDERED: HYDROcodone/APAP 10-325MG 1 EACH TAB PO ONE (16:57)
[2018-02-18] MEDS ORDERED: HYDROcodone/APAP 10-325MG 1 EACH TAB PO PRN (16:59)
[2018-02-18 17:35] LABS: Appearance,Urine Clear (Clear); Bilirubin,Urine Negative (Negative); Blood,Urine Negative (Negative); Color,Urine Yellow; Glucose,Urine (UA) 4+ (Negative); Ketones,Urine 1+ (Negative); Leukocyte Esterase,Urine Negative (Negative); Nitrite,Urine Negative (Negative); PH, Urine 5.5 (5.0-8.0); Protein,Urine Negative (Negative); Specific Gravity,Urine 1.018 (1.001-1.035); Urobilinogen,Urine <2.0 mg/dL (<2.0)
[2018-02-18] MEDS ORDERED: LEVOFLOXACIN 750MG-D5W PMX 750 MG in DEXTROSE/WATER 1 150ML.BAG IVPB SCH (18:00)
[2018-02-18] MEDS: methylPREDNISolone SOD SUCCI 125 MG/2 ML VIAL IV SCH (18:56)
[2018-02-18 18:58] LABS: Glucose,Whole Blood 299 mg/dL (75-99)
[2018-02-18 19:10] LABS: Basophils % (A) 0 %; Eosinophils # (A) 0.1 k/uL (0-0.7); Eosinophils % (A) 1 %; HCT 45.2 % (39.0-53.0); HGB 14.6 gm/dL (13.0-17.5); Lymphocytes # (A) 0.6 k/uL (1.0-4.8); Lymphocytes % (A) 4 %; MCH 30.6 pg (25.0-35.0); MCHC 32.3 g/dL (31.0-37.0); MCV 94.6 fL (80.0-100.0); Mean Platelet Volume 8.1; Monocytes # (A) 0.2 k/uL (0-1.0); Monocytes % (A) 1 %; Neutrophils # (A) 12.8 k/uL (1.3-7.7); Neutrophils % (A) 93 %; Platelet Count 179 k/uL (150-450); RBC 4.78 m/uL (4.30-5.90); RDW 13.7 % (11.5-15.5); WBC 13.7 k/uL (3.8-10.6)
[2018-02-18 19:12] LABS: ALT 55 U/L (21-72); AST 48 U/L (17-59); Albumin 4.5 g/dL (3.5-5.0); Alkaline Phosphatase 70 U/L (38-126); Anion Gap 18 mmol/L; Blood Urea Nitrogen 30 mg/dL (9-20); Calcium 9.3 mg/dL (8.4-10.2); Carbon Dioxide 24 mmol/L (22-30); Chloride 92 mmol/L (98-107); Glucose 325 mg/dL (74-99); Magnesium 2.1 mg/dL (1.6-2.3); Phosphorus 6.2 mg/dL (2.5-4.5); Potassium 5.4 mmol/L (3.5-5.1); Sodium 134 mmol/L (137-145); Total Bilirubin 0.7 mg/dL (0.2-1.3); Total Protein 7.1 g/dL (6.3-8.2)
[2018-02-18 19:16] LABS: INR 0.9 (<1.2); Partial Thromboplastin Time 23.5 sec (22.0-30.0); Prothrombin Time 9.8 sec (9.0-12.0)
--- NOTE | 2018-02-18 19:32 | XR ---
EXAMINATION TYPE: XR chest 1V portable DATE OF EXAM: 02/18/2018 COMPARISON: Today at 10:40 AM HISTORY: COPD. Short of breath TECHNIQUE: Single frontal view of the chest is obtained. FINDINGS: Heart and mediastinum are normal. Lungs are clear. Diaphragm is normal. Bony thorax appear s normal. IMPRESSION: Normal chest. No change.
[2018-02-18] MEDS: IPRATROPIUM-ALBUTEROL 3 ML NEB INHALATION SCH (19:44)
[2018-02-18] MEDS: FORMOTEROL FUMARATE 20 MCG/2 ML NEBU INHALATION SCH (19:44)
[2018-02-18] MEDS ORDERED: ALBUTEROL NEBULIZED 2.5 MG/3 ML INHALATION SCH (20:00)
[2018-02-18 21:16] LABS: Glucose,Whole Blood 262 mg/dL (75-99)
[2018-02-18 22:13] VITALS: BMI 49.9
[2018-02-18] MEDS: LISINOPRIL 20 MG TAB PO SCH (22:28)
[2018-02-18] MEDS: guaiFENesin 600 MG TABLET.ER PO SCH (22:28)
[2018-02-18] MEDS: amLODIPine 10 MG TAB PO SCH (22:28)
[2018-02-18] MEDS: ATORVASTATIN 40 MG TAB PO SCH (22:28)
[2018-02-18] MEDS: HYDROCHLOROTHIAZIDE 25 MG TAB PO SCH (22:29)
[2018-02-18] MEDS: INSULIN ASPART 100 UNIT/ML 1 ML 10 ML VIAL SQ SCH (22:36)
[2018-02-19 01:25] LABS: Glucose,Whole Blood 225 mg/dL (75-99)
[2018-02-19] MEDS: methylPREDNISolone SOD SUCCI 125 MG/2 ML VIAL IV SCH ×4 (01:46→17:38)
[2018-02-19 05:36] LABS: Basophils % (A) 0 %; Eosinophils % (A) 0 %; HCT 47.5 % (39.0-53.0); HGB 14.8 gm/dL (13.0-17.5); Lymphocytes % (A) 6 %; MCH 29.4 pg (25.0-35.0); MCHC 31.1 g/dL (31.0-37.0); MCV 94.5 fL (80.0-100.0); Mean Platelet Volume 7.2; Monocytes # (A) 0.3 k/uL (0-1.0); Monocytes % (A) 2 %; Neutrophils # (A) 14.5 k/uL (1.3-7.7); Neutrophils % (A) 91 %; Platelet Count 217 k/uL (150-450); RBC 5.03 m/uL (4.30-5.90); RDW 13.7 % (11.5-15.5)
[2018-02-19 06:18] LABS: ALT 55 U/L (21-72); AST 47 U/L (17-59); Albumin 4.6 g/dL (3.5-5.0); Alkaline Phosphatase 63 U/L (38-126); Anion Gap 15 mmol/L; Blood Urea Nitrogen 31 mg/dL (9-20); Calcium 9.4 mg/dL (8.4-10.2); Carbon Dioxide 29 mmol/L (22-30); Chloride 93 mmol/L (98-107); Glucose 260 mg/dL (74-99); Magnesium 2.6 mg/dL (1.6-2.3); Potassium 4.9 mmol/L (3.5-5.1); Sodium 137 mmol/L (137-145); Total Bilirubin 0.8 mg/dL (0.2-1.3); Total Protein 7.4 g/dL (6.3-8.2)
[2018-02-19] MEDS: INSULIN ASPART 100 UNIT/ML 1 ML 10 ML VIAL SQ SCH ×4 (06:59→21:12)
[2018-02-19 07:01] LABS: Glucose,Whole Blood 297 mg/dL (75-99)
[2018-02-19] MEDS: IPRATROPIUM-ALBUTEROL 3 ML NEB INHALATION SCH ×4 (07:04→20:22)
[2018-02-19] MEDS: FORMOTEROL FUMARATE 20 MCG/2 ML NEBU INHALATION SCH ×2 (07:04→20:22)
[2018-02-19] MEDS: PANTOPRAZOLE 40 MG TABLET PO SCH (08:46)
[2018-02-19] MEDS: ENOXAPARIN 40 MG/0.4 ML SYRINGE SQ SCH (08:46)
[2018-02-19] MEDS: guaiFENesin 600 MG TABLET.ER PO SCH ×2 (08:47→21:11)
[2018-02-19] MEDS: LISINOPRIL 20 MG TAB PO SCH ×2 (08:47→21:11)
[2018-02-19] MEDS: HYDROCHLOROTHIAZIDE 25 MG TAB PO SCH (08:47)
[2018-02-19] MEDS ORDERED: ESCITALOPRAM 10 MG TAB PO SCH (09:00)
[2018-02-19] MEDS ORDERED: predniSONE 20 MG TAB PO SCH (09:00)
[2018-02-19] MEDS ORDERED: AZITHROMYCIN 500 MG TAB PO SCH (09:00)
[2018-02-19] MEDS ORDERED: BUMETANIDE 0.25 MG/ML 4 ML VIAL IVP STA (09:17)
--- NOTE | 2018-02-19 10:15 | P.PN ---
Subjective Pt was admitted for SOB, cough productive of yellow sputum and wheezing, working diagnosis of COPD. Started on SoluMedro and Nebs, O2 reports feeling better this am. No CP, nausea or vomitig. Bilateral leg edema, possible orthopnea, no official diagnosis of NATALY. He reports 1 month of dyspnea and wheezing, recently started on prednisone by PCP. No fever or chills. Regarding his DM, Has diabetic neuropathy. Currently on Metformin. REVIEW OF SYSTEMS: CONSTITUTIONAL: No fever or chills HEENT: No changes in vision or voice CARDIOVASCULAR: Per HPI RESPIRATORY: Per HPI GASTROINTESTINAL: No abdominal pain, no nausea no vomiting no constipation or diarrhea GENITOURINARY: no any urinary urgency, frequency or burning, and there has been no blood in her urine. no flank pain. MUSCULOSKELETAL: She notes full range of motion of all her joints without pain or swelling. NEUROLOGICAL: , no headache. no vision changes, or fainting. No numbness or tingling. Objective - Vital Signs Vital signs: Vital Signs Temp 97.2 F L 02/19/18 08:00 Pulse 89 02/19/18 08:00 Resp 22 02/19/18 08:00 BP 139/73 02/19/18 08:00 Pulse Ox 92 L 02/19/18 08:00 Intake & Output 02/18/18 02/19/18 02/19/18 18:59 06:59 18:59 Output Total 400 Balance -400 Weight 171.8 kg 165.8 kg Output: Urine 400 Other: Voiding Method Urinal - Exam Vital Signs: I have reviewed the vital signs. GENERAL: no apparent distress, cooperative Eyes: PERRL, extraoculry movements intact, clear conjunctiva Head: : Atraumatic external nose and ears, oropharyngeal mucosa is moist without lesions or exudates Neck: Symmetric, trachea midline, No thyromegaly, no masses or neck vain pulsation, no neck rigidity CVS: +S1/S2, No murmurs or gallops. Peripheral pulses 2+ and equal in all extremities. RESP: Unlabored respiratory effort. Breath sounds are diminished. Bilateral expiratory wheezing is present, no rhonchi or crackles. Abdomen: Obese slightly distended, Bowel sounds present in all 4 quadrants, Soft to palpation, Nontender, No hepatosplenomegaly, no hernias or masses, no CVA tnderness Extremities: Bilateral lower extremity swelling 1+ pitting no warmth or erythema or tenderness Musculoskeletal: Extremities w/o deformity, No cyanosis or clubbing, no joint swelling Skin: Warm, Dry. No rashes or lesions Neuro: orthopedic podiatrist II-XII grossly intact, motor strenght 5/5 i upper and lower extremities, no clonus, patellar DTRs 2+ and sympetrical and no asterixis Psych: Awake, Alert, & Oriented (AAO) x3 Appropriate mood and affect - Labs CBC & Chem 7: 02/19/18 05:00 02/19/18 05:00 Labs: Abnormal Lab Results - Last 24 Hours (Table) 02/18/18 02/18/18 02/18/18 Range/Units 13:40 18:00 18:00 WBC 13.7 H (3.8-10.6) k/uL Neutrophils # 12.8 H (1.3-7.7) k/uL Lymphocytes # 0.6 L (1.0-4.8) k/uL Sodium 134 L (137-145) mmol/L Potassium 5.4 H (3.5-5.1) mmol/L Chloride 92 L (98-107) mmol/L BUN 30 H (9-20) mg/dL Glucose 325 H (74-99) mg/dL POC Glucose (mg/dL) (75-99) mg/dL Phosphorus 6.2 H (2.5-4.5) mg/dL Magnesium (1.6-2.3) mg/dL Urine Glucose (UA) 4+ H (Negative) Urine Ketones 1+ H (Negative) 02/18/18 02/18/18 02/19/18 Range/Units 18:55 21:02 01:11 WBC (3.8-10.6) k/uL Neutrophils # (1.3-7.7) k/uL Lymphocytes # (1.0-4.8) k/uL Sodium (137-145) mmol/L Potassium (3.5-5.1) mmol/L Chloride (98-107) mmol/L BUN (9-20) mg/dL Glucose (74-99) mg/dL POC Glucose (mg/dL) 299 H 262 H 225 H (75-99) mg/dL Phosphorus (2.5-4.5) mg/dL Magnesium (1.6-2.3) mg/dL Urine Glucose (UA) (Negative) Urine Ketones (Negative) 02/19/18 02/19/18 02/19/18 Range/Units 05:00 05:00 06:59 WBC 16.0 H (3.8-10.6) k/uL Neutrophils # 14.5 H (1.3-7.7) k/uL Lymphocytes # (1.0-4.8) k/uL Sodium (137-145) mmol/L Potassium (3.5-5.1) mmol/L Chloride 93 L (98-107) mmol/L BUN 31 H (9-20) mg/dL Glucose 260 H (74-99) mg/dL POC Glucose (mg/dL) 297 H (75-99) mg/dL Phosphorus (2.5-4.5) mg/dL Magnesium 2.6 H (1.6-2.3) mg/dL Urine Glucose (UA) (Negative) Urine Ketones (Negative) Microbiology - Last 24 Hours (Table) 02/19/18 07:30 Gram Stain - Final Sputum Sputum Culture - Final Assessment and Plan Assessment: Assessment and plan: 1. Acute hypoxic respiratory failure with oxygen saturation in 70s on room air on admission Clinically Due to acute COPD exacerbation, aggravated by obesity. Next continue systemic steroids nebulizer and antibiotic given the purulence of the sputum Supplemental oxygen as needed and wean off as possible Pulmonary consultation Vaccinations Tobacco cessation PFTs as an outpatient In view of protracted dyspnea leg swelling and some orthopnea we will obtain echocardiogram Will give 1 dose of Bumex CTA negative for pulmonary embolism May consider transferring out of ICU Will need home O2 evaluation prior discharge 2. Type 2 diabetes mellitus without long-term use of insulin and with diabetic neuropathy Here with hyperglycemia in context of systemic steroids Continue to adjust patient's insulin as he might need to be on long-acting insulin for better coverage Check A1c 3. Morbid obesity BMI 48.2 Weight loss recommendation Recommended to check for possibility of sleep apnea and outpatient 4. Acute debility Physical occupational therapy Increase activity
[2018-02-19 12:07] LABS: Glucose,Whole Blood 284 mg/dL (75-99)
--- NOTE | 2018-02-19 12:46 | P.CNPUL ---
History of Present Illness Consult date: 02/19/18 Requesting physician: Jaspreet Flower Reason for consult: COPD Chief complaint: Shortness of breath, cough and wheezing. History of present illness: This is a 57-year-old white male with history of diabetes, hypertension, osteoarthritis, remote smoking history, never diagnosed with COPD. Has been seeing Dr. Dias for a number of years, but was never diagnosed with COPD. And he is not on any inhalers for underlying COPD. Patient presented to the ER at [place] with few weeks history of cough wheezing shortness of breath. He saw his primary care physician prior to that, and he was given a Medrol Dosepak , and a course of antibiotics for less than 7 days. Patient continues to cough and wheeze, his cough was described as productive with yellowish phlegm. Did not improve much with his steroids and bronchodilators. Patient has also been complaining of lower extremity swelling, and at times lightheadedness and dizziness. No palpitations, but has been reporting some occasional chills and night sweats. In [place], the patient received bronchodilators, his O2 saturation was apparently low in the mid 70s, patient was placed on BiPAP initially, he was given Solu-Medrol, updrafts, and arrangements were made for the patient to be transferred to [facility]. Screening for influenza A and B was negative. Patient was placed on bronchodilators and steroids for acute presentation of COPD exacerbation, and that seems to be improving so far while the patient is in the ICU. Review of Systems 14 point review of systems were obtained, please refer to pertinent positives in HPI, otherwise remaining systems are negative. Past Medical History Past Medical History: Diabetes Mellitus, Hyperlipidemia, Hypertension, Osteoarthritis (OA) Additional Past Medical History / Comment(s): neuropathy, SCOLIOSIS,LUMBAR SPINAL STENOSIS(HAD SX) History of Any Multi-Drug Resistant Organisms: None Reported Past Surgical History: Joint Replacement, Orthopedic Surgery, Tonsillectomy Additional Past Surgical History / Comment(s): right hip replaced, b/l shoulder surg., right foot surg, posterior lateral decompression and fusion lumbar spine. Past Anesthesia/Blood Transfusion Reactions: No Reported Reaction Smoking Status: Former smoker - Past Family History Mother Family Medical History: Myocardial Infarction ([place]) Additional Family Medical History / Comment(s): CARDIAC STENTS Medications and Allergies Home Medications Medication Instructions Recorded Confirmed Type Enalapril/Hydrochlorothiazide 1 tab PO BID 11/11/13 02/18/18 History [Vaseretic 10-25 mg] metFORMIN HCL [Glucophage] 500 mg PO BID 11/11/13 02/18/18 History Allopurinol [Zyloprim] 300 mg PO HS 02/03/14 02/18/18 History amLODIPine/ATORVASTATIN [[place]ad[place] 10 1 tab PO HS 02/03/14 02/18/18 History mg-40 mg Tablet] HYDROcodone/APAP 10-325MG [[place] 1 tab PO Q4H PRN 07/28/16 02/18/18 History 10] Escitalopram [Lexapro] 10 mg PO DAILY 02/18/18 02/18/18 History Sulindac [Clinoril] 200 mg PO BID 02/18/18 02/18/18 History predniSONE 10 mg PO HS 02/18/18 02/18/18 History predniSONE 20 mg PO DAILY 02/18/18 02/18/18 History Allergies Allergy/AdvReac Type Severity Reaction Status Date / Time No Known Allergies Allergy Verified 02/18/18 13:37 Physical Exam Vitals: Vital Signs Temp Pulse Pulse Resp BP BP Pulse Ox 02/19/18 12:00 94 21 120/77 92 L 02/19/18 11:18 84 02/19/18 11:07 80 02/19/18 10:00 87 23 154/79 91 L 02/19/18 08:00 97.2 F L 89 22 139/73 92 L 02/19/18 07:28 84 02/19/18 07:18 80 02/19/18 07:17 80 02/19/18 07:07 76 92 L 02/19/18 07:00 134/79 93 L 02/19/18 06:00 69 136/70 93 L 02/19/18 05:00 25 H 144/86 94 L 02/19/18 04:00 98 F 68 79 12 144/85 95 02/19/18 03:00 72 18 130/73 93 L 02/19/18 02:00 80 15 119/65 93 L 02/19/18 01:00 75 19 128/65 93 L 02/19/18 00:00 77 79 20 147/73 94 L 02/18/18 23:00 81 17 139/81 94 L 02/18/18 22:40 79 17 139/81 94 L 02/18/18 22:30 76 28 H 139/81 94 L 02/18/18 22:00 98.1 F 79 9 L 144/76 94 L 02/18/18 21:30 80 144/76 95 02/18/18 21:00 144/76 94 L 02/18/18 20:30 21 144/76 94 L 02/18/18 20:00 98.1 F 89 79 22 144/76 144/76 95 02/18/18 19:55 84 02/18/18 19:30 80 35 H 144/76 95 02/18/18 19:00 90 20 94 L 02/18/18 18:53 97.5 F L 84 23 144/76 94 L 02/18/18 18:21 98.6 F 87 20 154/87 94 L 02/18/18 16:45 90 18 130/72 98 02/18/18 15:39 98 18 157/80 96 02/18/18 13:47 22 02/18/18 13:46 76 22 136/72 97 02/18/18 13:30 75 02/18/18 13:25 95 02/18/18 13:14 98.2 F 75 25 H 156/82 91 L Intake and Output 02/18/18 02/19/18 02/19/18 22:59 06:59 14:59 Output Total 400 400 Balance -400 -400 Output: Urine 400 400 Other: Voiding Method Urinal Urinal Urinal Weight 171.8 kg 165.8 kg Physical Exam: Revealed a 57-year-old, obese, heavily bearded, on nasal cannula , and in no distress. Head: Atraumatic, normocephalic. HEENT:[Neck is supple.] [No neck masses.] [No thyromegaly.] [No JVD.] Chest: [Diminished breath sounds at the bases, rhonchi and wheezes noted bilaterally more so on forced expiratory maneuver.] Cardiac Exam: [Normal S1 and S2, no S3 gallop, no murmur.] Abdomen: [Soft, nontender, no megaly, no rebound, no guarding, normal bowel sounds.] Extremities: [No clubbing, no edema, no cyanosis.] Neurological Exam: Alert oriented 3. [No focal neurologic deficit.] Skin: No rashes. Lymphatics: No lymphadenopathy. Results - Laboratory Findings CBC and BMP: 02/19/18 05:00 02/19/18 05:00 PT/INR, D-dimer PT 9.8 sec (9.0-12.0) 02/18/18 18:00 INR 0.9 (<1.2) 02/18/18 18:00 Abnormal lab findings: Abnormal Labs 02/18/18 02/18/18 02/18/18 13:40 18:00 18:00 WBC 13.7 H Neutrophils # 12.8 H Lymphocytes # 0.6 L Sodium 134 L Potassium 5.4 H Chloride 92 L BUN 30 H Glucose 325 H POC Glucose (mg/dL) Phosphorus 6.2 H Magnesium Urine Glucose (UA) 4+ H Urine Ketones 1+ H 02/18/18 02/18/18 02/19/18 18:55 21:02 01:11 WBC Neutrophils # Lymphocytes # Sodium Potassium Chloride BUN Glucose POC Glucose (mg/dL) 299 H 262 H 225 H Phosphorus Magnesium Urine Glucose (UA) Urine Ketones 02/19/18 02/19/18 02/19/18 05:00 05:00 06:59 WBC 16.0 H Neutrophils # 14.5 H Lymphocytes # Sodium Potassium Chloride 93 L BUN 31 H Glucose 260 H POC Glucose (mg/dL) 297 H Phosphorus Magnesium 2.6 H Urine Glucose (UA) Urine Ketones 02/19/18 11:40 WBC Neutrophils # Lymphocytes # Sodium Potassium Chloride BUN Glucose POC Glucose (mg/dL) 284 H Phosphorus Magnesium Urine Glucose (UA) Urine Ketones - Diagnostic Findings CT scan - chest: image reviewed (No evidence of pulmonary embolism, mild patchy atelectasis is noted at the lung bases.) Assessment and Plan Assessment: Impression: 1 acute hypoxic respiratory failure secondary to acute exacerbation of COPD. 2 acute tracheobronchitis, no evidence of pneumonia on the chest x-ray or CT of the chest. 3 type 2 diabetes with diabetic neuropathy. 4 morbid obesity 5 remote smoking history. Recommendation: Continue present course of bronchodilators, continue O2, GI and DVT prophylaxis, antibiotics, consider transferring the patient out of the ICU today, and we'll continue to follow. Time with Patient: Greater than 30
[2018-02-19 13:07] LABS: Hemoglobin A1C 8.7 % (4.0-6.0)
[2018-02-19] MEDS: HYDROcodone/APAP 5-325MG 1 EACH TAB PO PRN (14:50)
--- NOTE | 2018-02-19 15:53 | ECHOF ---
Referral Reason:SOB leg swelling MEASUREMENTS -------- HEIGHT: 185.4 cm WEIGHT: 156.5 kg BP: 154/79 IVSd: 1.3 cm (0.6 - 1.1) LVIDd: 4.2 cm (3.9 - 5.3) LVPWd: 1.3 cm (0.6 - 1.1) IVSs: 1.9 cm LVIDs: 2.7 cm LVPWs: 1.6 cm LA Diam: 3.5 cm (2.7 - 3.8) RVIDd: 3.3 cm (< 3.3) LAESV Index (A-L): 28.83 ml/m Ao Diam: 3.4 cm (2.0 - 3.7) AV Cusp: 2.9 cm (1.5 - 2.6) EPSS: 1.8 cm MV E Eulogio: 0.95 m/s MV DecT: 262 ms MV A Eulogio: 1.02 m/s MV E/A Ratio: 0.93 AV maxP.45 mmHg AV meanP.67 mmHg RAP: 5.00 mmHg RVSP: 21.28 mmHg MV EF SLOPE: 62.63 mm/s (70 - 150) MV EXCURSION: 16.40 mm (> 18.000) FINDINGS -------- Sinus rhythm. This was a technically difficult study with suboptimal views. The left ventricular size is normal. There is mild concentric left ventricular hypertrophy. Overa ll left ventricular systolic function is normal with, an EF between 65 - 70 %. The right ventricle is mildly enlarged. LA is midly dilated 29-33ml/m2. The right atrium is normal in size. 3 ml of Lumason was utilized for enhancement of images. There is mild aortic valve sclerosis. Peak/mean gradient across the Aortic Valve is 15.45mmHg / 6.6 7mmHg. The mitral valve is normal. Mild tricuspid regurgitation present. Right ventricular systolic pressure is normal at < 35 mmHg. The pulmonic valve was not well visualized. The aortic root size is normal. IVC Not well visulized. There is no pericardial effusion. CONCLUSIONS -------- 1. Sinus rhythm. 2. This was a technically difficult study with suboptimal views. 3. The left ventricular size is normal. 4. There is mild concentric left ventricular hypertrophy. 5. Overall left ventricular systolic function is normal with, an EF between 65 - 70 %. 6. The right ventricle is mildly enlarged. 7. LA is midly dilated 29-33ml/m2. 8. The right atrium is normal in size. 9. 3 ml of Lumason was utilized for enhancement of images. 10. There is mild aortic valve sclerosis. 11. Peak/mean gradient across the Aortic Valve is 15.45mmHg / 6.67mmHg. 12. The mitral valve is normal. 13. Mild tricuspid regurgitation present. 14. Right ventricular systolic pressure is normal at < 35 mmHg. 15. The pulmonic valve was not well visualized. 16. The aortic root size is normal. 17. IVC Not well visulized. 18. There is no pericardial effusion. MESH WORKER: Naz Isaac RDCS
[2018-02-19 17:42] LABS: Glucose,Whole Blood 436 mg/dL (75-99)
[2018-02-19] MEDS ORDERED: LEVOFLOXACIN 750 MG TAB PO SCH (18:00)
[2018-02-19 21:04] LABS: Glucose,Whole Blood 365 mg/dL (75-99)
[2018-02-19] MEDS: ATORVASTATIN 40 MG TAB PO SCH (21:11)
[2018-02-19] MEDS: amLODIPine 10 MG TAB PO SCH (21:11)
[2018-02-19 23:06] LABS: Glucose,Whole Blood 302 mg/dL (75-99)
[2018-02-19 23:59] VITALS: TEMP 98
[2018-02-20] MEDS: HYDROcodone/APAP 5-325MG 1 EACH TAB PO PRN ×2 (00:04→06:57)
[2018-02-20] MEDS: methylPREDNISolone SOD SUCCI 125 MG/2 ML VIAL IV SCH ×2 (00:07→05:35)
[2018-02-20 01:53] LABS: Glucose,Whole Blood 230 mg/dL (75-99)
[2018-02-20] MEDS: INSULIN ASPART 100 UNIT/ML 1 ML 10 ML VIAL SQ SCH ×4 (03:17→12:00)
[2018-02-20] MEDS ORDERED: IPRATROPIUM-ALBUTEROL 3 ML NEB INHALATION PRN (03:51)
[2018-02-20 04:55] VITALS: BP 145/77; RESP 18
[2018-02-20] MEDS: IPRATROPIUM-ALBUTEROL 3 ML NEB INHALATION SCH ×2 (07:24→11:30)
[2018-02-20] MEDS: FORMOTEROL FUMARATE 20 MCG/2 ML NEBU INHALATION SCH (07:24)
[2018-02-20 07:26] LABS: Glucose,Whole Blood 306 mg/dL (75-99)
[2018-02-20] MEDS: guaiFENesin 600 MG TABLET.ER PO SCH (08:00)
[2018-02-20] MEDS: PANTOPRAZOLE 40 MG TABLET PO SCH (08:00)
[2018-02-20] MEDS: LISINOPRIL 20 MG TAB PO SCH (08:00)
[2018-02-20] MEDS: ENOXAPARIN 40 MG/0.4 ML SYRINGE SQ SCH (08:00)
[2018-02-20] MEDS ORDERED: INSULIN DETEMIR 100 UNIT/ML 10 ML VIAL SQ SCH (09:00)
[2018-02-20] MEDS ORDERED: predniSONE 20 MG TAB PO SCH (11:00)
[2018-02-20 11:23] LABS: Glucose,Whole Blood 260 mg/dL (75-99)
--- NOTE | 2018-02-20 13:16 | P.PN ---
Subjective Progress Note Date: 02/20/18 Principal diagnosis: Acute hypoxic respiratory failure secondary to acute COPD exacerbation. This is a 57-year-old white male with history of diabetes, hypertension, osteoarthritis, remote smoking history, never diagnosed with COPD. Has been seeing Dr. Dias for a number of years, but was never diagnosed with COPD. And he is not on any inhalers for underlying COPD. Patient presented to the ER at [place] with few weeks history of cough wheezing shortness of breath. He saw his primary care physician prior to that, and he was given a Medrol Dosepak , and a course of antibiotics for less than 7 days. Patient continues to cough and wheeze, his cough was described as productive with yellowish phlegm. Did not improve much with his steroids and bronchodilators. Patient has also been complaining of lower extremity swelling, and at times lightheadedness and dizziness. No palpitations, but has been reporting some occasional chills and night sweats. In [place], the patient received bronchodilators, his O2 saturation was apparently low in the mid 70s, patient was placed on BiPAP initially, he was given Solu-Medrol, updrafts, and arrangements were made for the patient to be transferred to [facility]. Screening for influenza A and B was negative. Patient was placed on bronchodilators and steroids for acute presentation of COPD exacerbation, and that seems to be improving so far while the patient is in the ICU. Reevaluated today on 02/20/2018, patient is feeling much better, breathing a lot easier, hardly any cough no wheezing no shortness of breath no chest pain. Labs were reviewed including CBC showed leukocytosis from yesterday, electrolytes and renal profile are normal. Objective - Vital Signs Vital signs: Vital Signs Temp 98 F 02/20/18 04:54 Pulse 72 02/20/18 11:40 Resp 18 02/20/18 04:54 BP 145/77 02/20/18 04:54 Pulse Ox 92 L 02/20/18 04:54 Intake & Output 02/19/18 02/20/18 02/20/18 18:59 06:59 18:59 Intake Total 420 Output Total 1000 600 Balance -1000 -180 Weight 165.8 kg 165.8 kg Intake: Oral 420 Output: Urine 1000 600 Other: Voiding Method Urinal Urinal Toilet # Voids 2 - Exam Physical Exam: Revealed a 57-year-old, obese, heavily bearded, on nasal cannula , and in no distress. Head: Atraumatic, normocephalic. HEENT:[Neck is supple.] [No neck masses.] [No thyromegaly.] [No JVD.] Chest: [Clear breath sounds bilaterally, no crackles or rhonchi or wheezes. Cardiac Exam: [Normal S1 and S2, no S3 gallop, no murmur.] Abdomen: [Soft, nontender, no megaly, no rebound, no guarding, normal bowel sounds.] Extremities: [No clubbing, no edema, no cyanosis.] Neurological Exam: Alert oriented 3. [No focal neurologic deficit.] Skin: No rashes. Lymphatics: No lymphadenopathy. - Labs CBC & Chem 7: 02/19/18 05:00 02/19/18 05:00 Labs: Abnormal Lab Results - Last 24 Hours (Table) 02/19/18 02/19/18 02/19/18 Range/Units 17:39 21:01 23:03 POC Glucose (mg/dL) 436 H 365 H 302 H (75-99) mg/dL 02/20/18 02/20/18 02/20/18 Range/Units 01:51 07:23 11:21 POC Glucose (mg/dL) 230 H 306 H 260 H (75-99) mg/dL Microbiology - Last 24 Hours (Table) 02/18/18 17:52 Blood Culture - Preliminary Blood No Growth after 24 hours 02/18/18 17:52 Blood Culture - Preliminary Blood No Growth after 24 hours 02/19/18 07:30 Gram Stain - Final Sputum Sputum Culture - Final Assessment and Plan Assessment: Impression: 1 acute hypoxic respiratory failure secondary to acute exacerbation of COPD. significantly improved, patient will be cleared for discharge planning today, and should have follow-up with me on outpatient basis. 2 acute tracheobronchitis, no evidence of pneumonia on the chest x-ray or CT of the chest. 3 type 2 diabetes with diabetic neuropathy. 4 morbid obesity 5 remote smoking history. Recommendation: Consider discharging the patient home, rested therapy to check whether the patient qualifies for home O2, patient is to be discharged home on his usual bronchodilators including albuterol Atrovent updrafts, Symbicort, prednisone 40 mg tapered over the next 2 weeks, and antibiotics in the form of Levaquin 500 milligrams daily for 7 days. See me in the office in one week Time with Patient: Less than 30
[2018-02-20 14:02] VITALS: PULSE 99
--- NOTE | 2018-02-20 14:27 | P.DS ---
Providers Date of admission: 02/18/18 16:36 Attending physician: Jaspreet Flower MD Consults: 02/18/18 16:54 Consult Physician Routine Consulting Provider: Giuliana Durbin Consult Reason/Comments: acute respiratory failure Do you want consulting provider notified?: Yes Primary care physician: Buster Dias Hospital Course: Reason for admission: shortness of breath cough and expectoration Hospital course: 57-year-old male history of obesity and tobacco admitted with shortness of breath and hypoxia productive course of coughing expectoration and wheezing. Apparently he suffered with URI sometimes in December and ever since then the having above-mentioned difficulties. He went to course of antibiotics and prednisone with some improvement but recurrence of the symptoms one this medications finished. In emergency department he was found to be saturating in 70s on room air and being quite wheezy. Chest x-ray shows some atelectasis but no lou infiltrates or any other acute findings. He did complain of some leg swelling and mild orthopnea as well. Patient was admitted on supplemental oxygen and his oxygenation improved. He was started on Solu-Medrol and DuoNeb's and given dose of Bumex. He was also treated with levofloxacin as well. He was evaluated by pulmonary service. They continue the above-mentioned treatment. With the above-mentioned treatment his respiratory status continued to improved. He was able to wean off of the oxygen. The day of discharge he was transitioned to prednisone. He was able to ambulate in the room and hallway without significant shortness of breath or hypoxia. Vital Signs: I have reviewed the vital signs. GENERAL: Well-nourished, Well-developed , no apparent distress, cooperative Eyes: PERRL, extraoculry movements intact, clear conjunctiva Head: : Atraumatic external nose and ears, oropharyngeal mucosa is moist without lesions or exudates Neck: Symmetric, trachea midline, No thyromegaly, no masses or neck vain pulsation, no neck rigidity CVS: +S1/S2, No murmurs or gallops. Peripheral pulses 2+ and equal in all extremities. RESP: Unlabored breathing. Diminished breath sounds without any wheezing or rhonchi. Abdomen: Bowel sounds present in all 4 quadrants, Soft to palpation, Nontender/ Nondistended, No hepatosplenomegaly, no hernias or masses, no CVA tenderness Musculoskeletal: Extremities w/o deformity, No cyanosis or clubbing, no joint swelling, trace pedal edema, no erythema or tenderness or warmth Skin: Warm, Dry. No rashes or lesions Psych: Awake, Alert, & Oriented (AAO) x3 Appropriate mood and affect Pulmonary service found patient stable for discharge and recommended finish a course of prednisone and levofloxacin and follow-up in their office for pulmonary function test Tests done: Echocardiogram: preserved ejection fraction without significant valvular disease and without pulmonary hypertension Patient Condition at Discharge: Fair Plan - Discharge Summary New Discharge Prescriptions: New guaiFENesin [Mucinex] 1,200 mg PO Q12HR tablet.er Ipratropium-Albuterol Nebulize [Duoneb 0.5 mg-3 mg/3 ml Soln] 3 ml INHALATION QID PRN #30 vial PRN Reason: Shortness Of Breath Or Wheezing Levofloxacin [Levaquin] 750 mg PO Q24H 3 Days #3 tab predniSONE 40 mg PO DAILY 7 Days #14 tab Continue metFORMIN HCL [Glucophage] 500 mg PO BID Enalapril/Hydrochlorothiazide [Vaseretic 10-25 mg] 1 tab PO BID amLODIPine/ATORVASTATIN [Caduet 10 mg-40 mg Tablet] 1 tab PO HS Allopurinol [Zyloprim] 300 mg PO HS Escitalopram [Lexapro] 10 mg PO DAILY Discontinued HYDROcodone/APAP 10-325MG [[place] 10] 1 tab PO Q4H PRN PRN Reason: Pain predniSONE 20 mg PO DAILY predniSONE 10 mg PO HS Sulindac [[place]] 200 mg PO BID Discharge Medication List Enalapril/Hydrochlorothiazide [Vaseretic 10-25 mg] 1 tab PO BID 11/11/13 [ History] metFORMIN HCL [Glucophage] 500 mg PO BID 11/11/13 [History] Allopurinol [Zyloprim] 300 mg PO HS 02/03/14 [History] amLODIPine/ATORVASTATIN [Caduet 10 mg-40 mg Tablet] 1 tab PO HS 02/03/14 [ History] Escitalopram [Lexapro] 10 mg PO DAILY 02/18/18 [History] Ipratropium-Albuterol Nebulize [Duoneb 0.5 mg-3 mg/3 ml Soln] 3 ml INHALATION QID PRN #30 vial 02/20/18 [Rx] Levofloxacin [Levaquin] 750 mg PO Q24H 3 Days #3 tab 02/20/18 [Rx] guaiFENesin [Mucinex] 1,200 mg PO Q12HR tablet.er 02/20/18 [Rx] predniSONE 40 mg PO DAILY 7 Days #14 tab 02/20/18 [Rx] Follow up Appointment(s)/Referral(s): Ruthie Mcmillan MD [STAFF PHYSICIAN] - 1 Week Buster Dias MD [Primary Care Provider] - 1-2 days Patient Instructions/Handouts: Prednisone (By mouth), Levofloxacin (By mouth), Ipratropium/Albuterol (By breathing), COPD (Chronic Obstructive Pulmonary Disease) (DC) Activity/Diet/Wound Care/Special Instructions: Activity as tolerated. Diabetic Diet. Resume Metformin 02/21/2018. Discharge Disposition: HOME SELF-CARE
== END 2018-02-20 14:00 | disposition home or self-care (01) | DRG 189 ==
LOC: EC 13:09 → 2SICU 16:36 → 3NMEDONC 02-19 23:56
PROVIDERS: ADMIT Family Medicine; ATTEND Family Medicine
PROC: 5A09457 Assistance with Respiratory Ventilation, 24-96 Consecutive Hours, Continuous Positive Airway Pressure (ICD-10-PCS; principal; 2018-02-18)
DX: J96.01 Acute respiratory failure with hypoxia (principal); J44.0 Chronic obstructive pulmonary disease with (acute) lower respiratory infection; J45.901 Unspecified asthma with (acute) exacerbation; Z68.42 Body mass index [BMI] 45.0-49.9, adult; J98.11 Atelectasis; J44.1 Chronic obstructive pulmonary disease with (acute) exacerbation; E66.01 Morbid (severe) obesity due to excess calories; E11.42 Type 2 diabetes mellitus with diabetic polyneuropathy; E11.65 Type 2 diabetes mellitus with hyperglycemia; M41.9 Scoliosis, unspecified; J20.9 Acute bronchitis, unspecified; G89.29 Other chronic pain; M54.5 Low back pain; I10 Essential (primary) hypertension; E78.5 Hyperlipidemia, unspecified; M10.9 Gout, unspecified; M48.061 Spinal stenosis, lumbar region without neurogenic claudication; M19.90 Unspecified osteoarthritis, unspecified site; Z79.84 Long term (current) use of oral hypoglycemic drugs; Z79.899 Other long term (current) drug therapy; Z96.641 Presence of right artificial hip joint; Z87.891 Personal history of nicotine dependence; Z98.1 Arthrodesis status; Z82.49 Family history of ischemic heart disease and other diseases of the circulatory system; Z71.3 Dietary counseling and surveillance
CPT/HCPCS: 71045; 71275; 80053; 81003; 83036; 83735; 83880; 84100; 85025; 85610; 85730; 87040; 87070; 87205; 87252; 87449; 87496; 87498; 87529; 87798; 93306; 94640; 94660; 96365; 99285

== ENCOUNTER 2023-12-06 10:28 | Day surgery (SDC) | payer MEDICARE ==
[2023-12-01 11:18] VITALS: BMI 42.2
[2023-12-06] MEDS ORDERED: LIDOCAINE 1% (10MG/ML) FOR IV START INTRADERMA PRN (10:54)
[2023-12-06 11:02] VITALS: RESP 18; TEMP 97
[2023-12-06] MEDS: IV FLUID CONTINUATION 1,000 ML IV ONE (11:02)
[2023-12-06] MEDS: LACTATED RINGERS 1,000 ML IV SCH (11:16)
[2023-12-06 11:19] LABS: Glucose,Whole Blood 161 mg/dL (70-110)
[2023-12-06] MEDS ORDERED: PROPOFOL 10 MG/ML 20 ML VIAL IV ONE (11:29)
[2023-12-06] MEDS ORDERED: LIDOCAINE 1% INJ 10MG/ML (20 ML MDV) ONE (11:29)
--- NOTE | 2023-12-06 11:39 | P.PCN ---
Date of Procedure: 12/06/23 Procedure(s) Performed: BRIEF HISTORY: Patient is a 63-year-old, pleasant, white male scheduled for an upper endoscopy as a part of evaluation of chest pain dysphagia to liquids for the last 1 year duration.. PROCEDURE PERFORMED: Esophagogastroduodenoscopy with biopsy. PREOPERATIVE DIAGNOSIS: Dysphagia to solids and liquids and epigastric pain of 1 year duration. IV sedation per anesthesia. PROCEDURE: After informed consent was obtained, the patient was brought into the endoscopy unit. IV sedation was administered by Anesthesia under continuous monitoring. Initially the Olympus GIF-140 video endoscope was inserted into the mouth. Esophagus intubated without any difficulty. It was gradually advanced into the stomach and duodenum and carefully examined. The bulb and the second part of the duodenum appeared normal. The scope at this time was withdrawn to the stomach, adequately insufflated with air, and upon careful examination, mucosa of the antrum mild diffuse gastritis and biopsies were done in this area. Mucosa, body, cardia and the fundus appeared normal. The scope was then withdr awn into the esophagus. Very small sliding-type hiatal hernia noted. The GE junction was located at 45 cm from the incisors. The esophagus appeared normal. There were no erosions or ulcerations seen, biopsies were done from mid and distal esophagus and the patient tolerated the procedure well. IMPRESSION: 1. Small hiatal hernia but no evidence of esophagitis or esophageal stricture. 2. Mild antral gastritis. RECOMMENDATIONS: The findings of this examination were discussed with the patient as well as his family. He was advised to follow the biopsy results. In the meantime increase omeprazole to 20 mg twice daily and follow antireflux measures. If the patient continues remain symptomatic we will consider doing esophageal manometry to rule out this vaginal dysmotility
[2023-12-06 11:56] VITALS: BP 126/73; PULSE 62
== END 2023-12-06 12:11 | disposition home or self-care (01) ==
LOC: ORWHC2ENDO 10:28
PROVIDERS: ATTEND Internal Medicine Gastroenterology
CPT/HCPCS: 43239; 88305

== ENCOUNTER → 2024-07-11 | Outpatient (CLI) | payer MEDICARE ==
--- NOTE | 2024-07-12 08:14 | MR ---
EXAMINATION TYPE: MR hip LT wo con DATE OF EXAM: 07/11/2024 10:16 PM COMPARISON: CT abdomen and pelvis July 07, 2016. CLINICAL INDICATION: Male, 63 years old with history of Left Hip Pain, Left hip pain and limited rang e of motion IV Contrast: cc (None if empty) Standard multiplanar, multisequence MRI departmental protocol Multiplanar, multisequence images of the pelvis focus on the left hip were acquired without contrast. FINDINGS: There is susceptibility artifact from right hip total arthroplasty noted. Moderate axial matheus int space loss and acetabular spurring in the left hip is seen. There is small left hip joint effusio n which may be physiologic. Femoral head shape is maintained. No suspicious serpiginous diminished T1 signal to suggest avascular necrosis is seen. No suspicious increased T2 or osseous edema. Mild incr eased signal of the greater trochanter consistent with mild insertional tendinosis. Muscle bulk in th e left thigh is maintained. There is a small fat-containing left inguinal hernia. No groin adenopathy is seen. There is posterior medial nonsimple thin walled fluid collection measuring 8.6 x 6.1 cm axial image 2 3 consistent with subcutaneous gluteal hematoma, correlate clinically. No free fluid in the pelvis. Prostate gland is normal in size. IMPRESSION: Moderate degenerative changes in the left hip. There is fairly moderate to large size non simple fluid collection medial left gluteal region suspicious for subcutaneous hematoma. Correlate cl inically. [facility], , 07/12/2024 8:11 AM
== END | disposition home or self-care (01) ==
LOC: RADMRIMAIN 21:30
DX: M16.12 Unilateral primary osteoarthritis, left hip (principal)